=== PATIENT | male | born 1935 | race African-American/Black ===

== ENCOUNTER → 2016-04-10 | Outpatient (CLI) | payer MEDICARE, OTHER ==
[2016-03-20 10:15] VITALS: BP 127/75
[~2016-04-10] MED LIST: ACET250T2 PO; ACET325T9 PO; ACET500C15 PO; ASPI81TA2 PO; ATOR20TA58 PO; BRIM5DRO3 EACHEYE; BUDE10.2 IH; CHOL200044 PO; CIPR250T PO; DOCU-27 PO; FAMO-63 PO; GADOBUTROL 7.5 MMOL/7.5 ML VIAL IV ONE; Hydrocodone/Acetaminophen PO; LATA2.5D3 EACHEYE; LOSA50TA6 PO; NAPR220C4 PO; PANT40TA3 PO; PROM5SYR2 PO
--- NOTE | 2016-04-10 11:35 | RAD ---
PROCEDURE MRI brain without and with contrast HISTORY Lung and liver cancer, metastases evaluation TECHNIQUE Sagittal and axial T1, axial T2, axial FLAIR, axial diffusion, axial gradient echo T2, and post-contrast axial and coronal T1 weighted images were acquired of the brain. Contrast: 7.5 cc Gadavist COMPARISON June 28, 2014 FINDINGS There is no evidence of recent infarct. Ventricular size is stable. There is mild generalized supratentorial involutional change. There is no new intra-axial mass effect, midline shift, extra-axial fluid collection. There is again mild T2 and FLAIR hyperintense signal abnormality of the supratentorial white matter bilaterally. There is no nodular parenchymal or leptomeningeal enhancement. Small somewhat linear focus of enhancement of the left parietal lobe is probably due to small developmental venous anomaly. There is preservation of the major arterial intracranial flow voids at the skull base. There has been lens surgery on the right. There are again round foci of signal abnormality of the sphenoid sinus bilaterally, may be due to complex or mucous retention cysts or polyps. There is patchy very minimal ethmoid air cell mucosal thickening. There is also small complex mucous retention cyst of the posterior left maxillary sinus. Mastoid air cells are aerated. Cerebellar tonsils are normal in location. There is preserved marrow signal of the clivus. There is no new abnormality of the small pituitary gland. IMPRESSION 1. There is no abnormal intracranial enhancement. 2. Minimal T2 and FLAIR hyperintense signal abnormality of the supratentorial white matter is similar, most likely due to chronic microvascular ischemic disease in patient this age. Electronically signed by: Indio Loza MD (Apr 10, 2016 11:32:39)
== END | disposition home or self-care (01) ==
LOC: MRI 10:30
PROVIDERS: ATTEND Internal Medicine Hematology & Oncology
DX: C34.92 Malignant neoplasm of unspecified part of left bronchus or lung (principal)
CPT/HCPCS: 70553; A9585

== ENCOUNTER → 2016-07-09 | Outpatient (CLI) | payer MEDICARE, OTHER ==
[2016-03-20 10:15] VITALS: BP 127/75
[~2016-07-09] MED LIST changes: -GADOBUTROL 7.5 MMOL/7.5 ML VIAL IV ONE; +IOHEXOL 240 MG/ML 50ML VIAL. PO ONE
--- NOTE | 2016-07-09 14:59 | RAD ---
CT of the chest without contrast, 07/09/2016: History: Lung cancer Noncontrast scans were obtained as requested and compared to a study from 03/13/2016. An irregular parenchymal lesion in the posterior aspect of the left lower lobe seen on the previous study has markedly regressed. There are only now mild streaky parenchymal opacities in this region. No new pulmonary mass or infiltrate is seen. There is no evidence of pleural fluid. There is calcific plaquing of the thoracic aorta without evidence of aneurysm. Several coronary artery calcifications are again noted. No mediastinal adenopathy is seen. A small amount of pericardial fluid is again noted anteriorly. There are moderate scattered degenerative changes in the spine. IMPRESSION: 1. Regression of the left lobe pulmonary mass compatible with a favorable response to therapy. 2. No new chest abnormality is detected. CT of the abdomen and pelvis without contrast, 07/09/2016: Multidetector CT imaging was performed following oral ingestion of contrast. No IV contrast was administered for this study. Comparison is made to a study from 04/21/2006. There is a tiny low-density lesion in the posterolateral aspect of the right lobe of the liver inferiorly. This is unchanged since the previous study suggesting a benign lesion such as a cyst. The unopacified liver is otherwise unremarkable. The possible right lobe lesion described on the PET study from 03/14/2016 is not visualized on these noncontrast CT scans. No gallbladder abnormality is seen. The pancreas is unremarkable. The spleen is of normal size. The unopacified kidneys show no evidence of obstruction. No adrenal abnormality is detected. Aortoiliac calcific plaquing is present without evidence of aneurysm. The prostate gland is surgically absent. There is a cystic structure in the deep pelvis on the right along the lateral aspect of what is probably either a bladder remnant or surgically reconstructed neobladder. There is a given history of bladder cancer. This configuration is unchanged. There are no findings suggest suggest tumor recurrence in the pelvis. The oral contrast material has not reached the colon. There is mild dilatation of several small bowel loops anteriorly in the upper abdomen. A similar appearance was present on the previous study. No free fluid or free air is evident in the abdomen or pelvis. Moderate multilevel degenerative changes are present in the lumbar spine. IMPRESSION: 1. Abnormal bladder anatomy as also noted on the study from 04/21/2006, probably representing a surgically reconstructed neobladder in this patient with a history of bladder cancer. 2. Unchanged small hepatic cyst. 3. No CT evidence of metastatic disease in the abdomen or pelvis. PQRS Compliance Statement: One or more of the following individualized dose reduction techniques were utilized for this examination: 1. Automated exposure control 2. Adjustment of the mA and/or kV according to patient size 3. Use of iterative reconstruction technique
== END | disposition home or self-care (01) ==
LOC: CT 09:22
PROVIDERS: ATTEND Internal Medicine Hematology & Oncology
DX: C34.92 Malignant neoplasm of unspecified part of left bronchus or lung (principal); R53.83 Other fatigue
CPT/HCPCS: 71250; 74176; Q9966

== ENCOUNTER → 2016-09-30 | Outpatient (CLI) | payer MEDICARE, OTHER ==
[2016-03-20 10:15] VITALS: BP 127/75
[~2016-09-30] MED LIST changes: +ASPI-630 PO; -ASPI81TA2 PO; +CONTRAST GIVEN MC PRN; +DOCU-109 PO; -DOCU-27 PO
--- NOTE | 2016-09-30 17:17 | RAD ---
CT chest, abdomen and pelvis without contrast 09/30/2016 at 1416 hours Indication: Adenocarcinoma. Lung cancer and history of bladder cancer. Comparison: CT chest/abdomen/pelvis 07/09/2016 Technique: Multiple axial CT images of the chest, abdomen and pelvis were acquired without intravenous contrast. Oral contrast was administered. Coronal and sagittal reformats are provided. Findings: Chest: Thyroid gland is normal. Evaluation is limited by lack of intravenous contrast. There are no enlarged lymph nodes in the axillary, mediastinal or hilar regions. Heart size is within normal limits. Thoracic aorta is normal in course and caliber with scattered atherosclerotic calcification. No pericardial or pleural effusions are present. Focal interstitial thickening and nodularity in the superior segment left lower lobe with area of cavitation appears similar to 07/09/2016. No new or enlarging pulmonary nodules are identified. No pneumothorax. Abdomen/pelvis: Evaluation of the solid abdominal viscera is limited by lack of intravenous contrast. There is a 9 mm hypoattenuating lesion in the inferior right hepatic lobe which is stable from 07/09/2016. Comment right adrenal gland, and gallbladder are within normal limits. Pancreas is normal in appearance. Mild nodularity of the left medial limb adrenal gland, stable. No contour deforming renal mass is identified. No renal calculi. No hydronephrosis. Abdominal aorta is normal in course and caliber with scattered atherosclerotic calcification. There are no enlarged abdominal or pelvic lymph nodes. There are dilated loops of small bowel containing oral contrast. Oral contrast extends distally to an area of caliber narrowing with a fecal stasis identified in the right lower quadrant (series 3, image 54). Small bowel loops measure up to 4.8 cm. The neobladder appears distended. Right-sided ileal conduit is prominent, similar to the prior examination. A bowel anastomosis is identified in the left central pelvis, the prior examination. There is no free intraperitoneal air. No free fluid within the abdomen or pelvis. There is disc space narrowing with endplate sclerosis at L2-L3, L3-L4 and L5-S1. There is [id number] spinal canal stenosis at L2-L3 and L3-L4. No suspicious osseous lesions are identified. Impression: 1. Left lower lobe parenchymal lesion appears similar to the prior examination from 07/09/2016. No new or enlarging pulmonary nodules are identified. 2. There is prominence of the small bowel measuring up to 4.8 cm with smooth tapering. However, there is some fecal stasis at this level and the right lower pelvis and correlation with any signs or symptoms of early small bowel obstruction is recommended, especially given the history of prior bowel surgery. 3. There is surgical reconstruction the urinary bladder which is distended. No evidence for bladder wall thickening. No evidence for metastasis involving the abdomen or pelvis. PQRS Compliance Statement: One or more of the following individualized dose reduction techniques were utilized for this examination: 1. Automated exposure control 2. Adjustment of the mA and/or kV according to patient size 3. Use of iterative reconstruction technique
== END | disposition home or self-care (01) ==
LOC: CT 12:55
PROVIDERS: ATTEND Internal Medicine Hematology & Oncology
DX: C34.92 Malignant neoplasm of unspecified part of left bronchus or lung (principal)
CPT/HCPCS: 71250; 74176; Q9966

== ENCOUNTER 2016-12-16 11:06 | Inpatient (IN) | payer MEDICARE, OTHER ==
[~2016-12-16] VITALS: Ht 180.3 cm; Wt 74.8 kg
[~2016-12-16 11:06] MED LIST changes: -CONTRAST GIVEN MC PRN; -IOHEXOL 240 MG/ML 50ML VIAL. PO ONE
[2016-12-16] MEDS ORDERED: CALC200T3 PO (12:00)
[2016-12-16] MEDS ORDERED: IBUP-1060 PO (12:00)
[2016-12-16] MEDS ORDERED: MAGIC MOUTHWASH (12:00)
[2016-12-16] MEDS ORDERED: COD1CAPS2 PO (12:00)
[2016-12-16] MEDS ORDERED: WHEA1POW8 PO (12:00)
[2016-12-16] MEDS ORDERED: CHOL10003 PO (12:00)
[2016-12-16] MEDS ORDERED: SODI100G DT (12:00)
[2016-12-16] MEDS ORDERED: CLOT15CR3 TP (12:00)
--- NOTE | 2016-12-16 12:13 | EKG ---
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
[2016-12-16 12:25] LABS: BASO % 1 % (0-3); EOS % 3 % (0-3); HEMATOCRIT 38.9 % (39.0-53.0); LYMPH # 1.1 x10^3/uL (1.0-4.8); LYMPH % 19 % (24-48); MEAN CORPUSCULAR HEMOGLOBIN 30 pg (25-35); MEAN CORPUSCULAR HGB CONC 33 g/dL (31-37); MEAN CORPUSCULAR VOLUME 91 fL (79-100); MONO % 12 % (0-9); NEUT % 66 % (31-73); PLATELET COUNT 164 x10^3/uL (140-400); RED BLOOD COUNT 4.26 x10^6/uL (4.30-5.70); RED CELL DISTRIBUTION WIDTH 13.5 % (11.5-14.5); WHITE BLOOD COUNT 5.9 x10^3/uL (4.0-11.0)
[2016-12-16 12:32] LABS: CALCIUM 9.2 mg/dL (8.5-10.1); CREATININE 1.2 mg/dL (0.7-1.3); POTASSIUM 4.1 mmol/L (3.5-5.1)
[2016-12-16 12:38] LABS: ALBUMIN 3.6 g/dL (3.4-5.0); ALBUMIN/GLOBULIN RATIO 1.1 (1.0-1.7); TOTAL BILIRUBIN 1.4 mg/dL (0.2-1.0)
[2016-12-16] MEDS ORDERED: ASPIRIN CHEWABLE 81 MG TABLET. PO ONE (13:00)
[2016-12-16] MEDS ORDERED: NITROGLYCERIN SUBLINGUAL 0.4 MG BOTTLE OF 25. SL PRN (13:00)
--- NOTE | 2016-12-16 13:06 | RAD ---
EXAM: Chest one view. HISTORY: Chest pain, cancer undergoing chemotherapy. COMPARISON: 09/30/2016, 03/12/2016. FINDINGS: A frontal view of the chest is obtained. Gas densities under the right hemidiaphragm are most likely interposed bowel loops. There are no confluent infiltrates. There is no pneumothorax or pleural effusion. The heart is not enlarged. There are atherosclerotic calcifications of the aorta. Instrumented anterior cervical discectomy and fusion changes are noted. IMPRESSION: 1. No confluent infiltrates. 2. Gas densities under the right hemidiaphragm are likely secondary to interposed bowel loops present pneumoperitoneum.
--- NOTE | 2016-12-16 14:11 | PHYS DOC ---
Past Medical History Past Medical History: CAD, Cancer, COPD, GERD, High Cholesterol, Hypertension Additional Past Medical Histor: cervical pain, bladder CA. Past Surgical History: Cervical Fusion Additional Past Surgical Histo: bladder surgery due to CA. Alcohol Use: None Drug Use: None Adult General Chief Complaint Chief Complaint: CHEST PAIN HPI HPI Patient is a 81 year old female with history of CAD and remote history of stent placed who presents with intermittent left-sided chest pain that yesterday. Chest pains nonexertional occurs at rest. Last from several minutes to 2-3 hours. I does mild and located over left breast. It is nonradiating. It is not associated with nausea shortness of breath or sweats. Patient currently reports mild chest pain. Patient took baby aspirin prior to ED arrival. Patient is not currently on nitroglycerin. Denies history of congestive heart failure. No fever chills, nausea vomiting or sweats.Denies cough sore throat, palpitations. No other acute symptom or plans. Patient's accompanied at bedside by spouse.. Review of Systems Review of Systems Review symptoms as per history of present illness. All other review symptoms are negative. Current Medications Current Medications Current Medications Medications (Trade) Dose Ordered Sig/Norma Start Time Stop Time Status Last Admin Dose Admin Aspirin (Children'S Aspirin) 324 mg 1X ONCE 12/16/16 13:00 12/16/16 13:01 DC 12/16/16 12:58 324 MG Nitroglycerin (Nitrostat) 0.4 mg PRN Q5MIN PRN 12/16/16 13:00 12/16/16 12:59 0.4 MG Allergies Allergies Allergies Coded Allergies Type Severity Reaction Last Updated Verified Sulfa (Sulfonamide Antibiotics) Allergy Intermediate 06/29/14 Yes doxycycline Allergy Intermediate 03/20/16 Yes Physical Exam Physical Exam Constitutional: Well developed, well nourished, no acute distress, non-toxic appearance. [] HENT: Normocephalic, atraumatic, bilateral external ears normal, oropharynx moist, no oral exudates, nose normal. [] Eyes: PERRLA, EOMI, conjunctiva normal, no discharge. [] Neck: Normal range of motion, no tenderness, supple, no stridor. [] Cardiovascular:Heart rate regular rhythm, no murmur , negative Homans sign[] Lungs & Thorax: Bilateral breath sounds clear to auscultation [] Abdomen: Bowel sounds normal, soft, no tenderness, no masses, no pulsatile masses. [] Skin: Warm, dry, no erythema, no rash. [] Back: No tenderness, no CVA tenderness. [] Extremities: No tenderness, no cyanosis, no clubbing, ROM intact, no edema. [] Neurologic: Alert and oriented X 3, normal motor function, normal sensory function, no focal deficits noted. [] Psychologic: Affect normal, judgement normal, mood normal. [] Current Patient Data Vital Signs Vital Signs Date Time Temp Pulse Resp B/P (MAP) Pulse Ox O2 Delivery O2 Flow Rate FiO2 12/16/16 13:44 67 20 122/68 (86) 97 Room Air 12/16/16 11:16 97.9 97.9 Lab Values Laboratory Tests Test 12/16/16 11:25 White Blood Count 5.9 x10^3/uL (4.0-11.0) Red Blood Count 4.26 x10^6/uL (4.30-5.70) L Hemoglobin 13.0 g/dL (13.0-17.5) Hematocrit 38.9 % (39.0-53.0) L Mean Corpuscular Volume 91 fL (79-100) Mean Corpuscular Hemoglobin 30 pg (25-35) Mean Corpuscular Hemoglobin Concent 33 g/dL (31-37) Red Cell Distribution Width 13.5 % (11.5-14.5) Platelet Count 164 x10^3/uL (140-400) Neutrophils (%) (Auto) 66 % (31-73) Lymphocytes (%) (Auto) 19 % (24-48) L Monocytes (%) (Auto) 12 % (0-9) H Eosinophils (%) (Auto) 3 % (0-3) Basophils (%) (Auto) 1 % (0-3) Neutrophils # (Auto) 3.9 x10^3uL (1.8-7.7) Lymphocytes # (Auto) 1.1 x10^3/uL (1.0-4.8) Monocytes # (Auto) 0.7 x10^3/uL (0.0-1.1) Eosinophils # (Auto) 0.2 x10^3/uL (0.0-0.7) Basophils # (Auto) 0.0 x10^3/uL (0.0-0.2) Sodium Level 144 mmol/L (136-145) Potassium Level 4.1 mmol/L (3.5-5.1) Chloride Level 107 mmol/L (98-107) Carbon Dioxide Level 31 mmol/L (21-32) Anion Gap 6 (6-14) Blood Urea Nitrogen 17 mg/dL (8-26) Creatinine 1.2 mg/dL (0.7-1.3) Estimated GFR (Cockcroft-Gault) 70.0 BUN/Creatinine Ratio 14 (6-20) Glucose Level 101 mg/dL (70-99) H Calcium Level 9.2 mg/dL (8.5-10.1) Total Bilirubin 1.4 mg/dL (0.2-1.0) H Aspartate Amino Transferase (AST) 25 U/L (15-37) Alanine Aminotransferase (ALT) 31 U/L (16-63) Alkaline Phosphatase 62 U/L (46-116) Troponin I Quantitative < 0.017 ng/mL (0.000-0.055) Total Protein 7.0 g/dL (6.4-8.2) Albumin 3.6 g/dL (3.4-5.0) Albumin/Globulin Ratio 1.1 (1.0-1.7) Laboratory Tests 12/16/16 11:25 Laboratory Tests 12/16/16 11:25 EKG EKG [EKG: Sinus rhythm, rate 70, no acute ST-T wave changes, QTC 393.] Radiology/Procedures Radiology/Procedures [Chest x-ray: No acute cardiac or pulmonary disease with fluid noted under right hemidiaphragm.] Course & Med Decision Making Course & Med Decision Making Pertinent Labs and Imaging studies reviewed. (See chart for details) [Patient given aspirin and nitroglycerin with release of symptoms. EKG, troponin are unremarkable. Will admit to the hospital was for cardiac workup. Patient resting comfortably and pain free in the ED.] Dragon Disclaimer Dragon Disclaimer This electronic medical record was generated, in whole or in part, using a voice recognition dictation system. Departure Departure Disposition: ADMITTED INPATIENT Admitting Physician: Other (Dr. Lemus) Condition: STABLE Referrals: LIZBETH BOWLES MD (PCP) HUGH VALDOVINOS DO Dec 16, 2016 14:10
[2016-12-16] MEDS ORDERED: ONDANSETRON PF 4 MG/2 ML VIAL. IV PRN (15:45)
[2016-12-16 16:00] VITALS: BP 138/73
[2016-12-16] MEDS: IPRATRPIUM/ALBUTEROL 0.5/2.5MG 3 ML NEBU. NEB SCH ×2 (16:44→20:37)
[2016-12-16] MEDS ORDERED: ACETAMINOPHEN 325 MG TABLET. PO PRN (18:00)
[2016-12-16] MEDS ORDERED: NAPROXEN 250 MG TABLET PO PRN (18:15)
--- NOTE | 2016-12-16 18:35 | HP ---
ADMIT DATE: 12/16/2016 CHIEF COMPLAINT: Chest pain. HISTORY OF PRESENT ILLNESS: The patient is an 81-year-old -[place] gentleman with CAD, distant stent placement as well as stage IV lung cancer (spread to liver), who presented to the Emergency Room with a 1-week history of left-sided chest pain. He relates that this is off and on without any inciting or alleviating factors. Feels like chest pressure with difficulty breathing and lasting from a few minutes to occasionally a couple of hours. He complains of left shoulder pain and back pain as well as numbness in his right forearm as well. Latter pain complaints, however, appear to be unrelated to the chest pain. He denies any shortness of breath or diaphoresis and nausea. In the Emergency Room, initial labs were negative and he is now admitted for further workup of heart disease. PAST MEDICAL HISTORY: CAD status post stent placement, lung cancer with spread to the liver, currently on Keytruda; COPD; GERD; high cholesterol; hypertension and history of bladder cancer status post resection and also status post cervical fusion. FAMILY HISTORY: Positive for CAD. SOCIAL HISTORY: Lives with . No ongoing toxic habits. ALLERGIES: SULFA and DOXY. MEDICATIONS: MAR reconciled with home meds. REVIEW OF SYSTEMS: Positive as per HPI. Rest of organ system review is negative. PHYSICAL EXAMINATION: VITAL SIGNS: From today show a blood pressure of 138/73, heart rate of 70, respiratory rate at 18 and he is afebrile. GENERAL: This is an 81-year-old well-nourished, well-developed -[place] gentleman, alert and oriented, no acute distress, very pleasant. HEENT: Shows no scleral icterus. NECK: Supple, without any palpable lymphadenopathy. LUNGS: Clear. HEART: Regular rate and rhythm. ABDOMEN: Has positive bowel sounds. Soft and nontender. EXTREMITIES: Show no edema. SKIN: Warm, soft and dry without any rash. LABORATORY DATA: CBC with a WBC of 5.9, hemoglobin 13 and platelets of 164. Chemistries with a BUN and creatinine of 17 and 1.2, normal electrolytes. Total bilirubin at 1.4 and other LFTs within normal. 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 RADIOLOGICAL DATA: Chest x-ray obtained in the Emergency Room shows no confluent infiltrates. ASSESSMENT AND PLAN: The patient is an 81-year-old gentleman with history of coronary artery disease as well as lung cancer, currently under treatment with good response; who presents with 1 week history of recurrent left-sided chest pain. We will rule out for acute coronary syndrome with serial enzymes and EKGs. Cardiology will be consulted, although some characteristics are typical, suspicion is that this is noncardiac. We will start on H2 sapna for potential gastroesophageal reflux disease. We will continue all his home medications as well. His oncologist, Dr. Botello will be notified of the admission as well. AMERICA MANCUSO MD DR: UR/nts JOB#: [id number] / [id number] CHELSY
[2016-12-16 19:32] VITALS: BP 160/80
[2016-12-16] MEDS ORDERED: BUDESONIDE 0.5 MG/2 ML NEBU. NEB SCH (20:00)
[2016-12-16] MEDS: LATANOPROST 0.005% OPHTH SOLUTION 2.5ML BOTTLE. OU SCH (20:28)
[2016-12-16] MEDS: BRIMONIDINE 0.2% OPHTH SOLUTION 5ML BOTTLE. OU SCH (20:28)
[2016-12-16] MEDS: CALCIUM CARBONATE 500 MG TAB.CHEW PO SCH (20:38)
[2016-12-16 22:54] VITALS: BP 124/73
[2016-12-17 03:28] VITALS: BP 137/72
[2016-12-17 05:16] LABS: BASO % 0 % (0-3); EOS % 1 % (0-3); HEMATOCRIT 37.1 % (39.0-53.0); HEMOGLOBIN 12.9 g/dL (13.0-17.5); LYMPH # 0.9 x10^3/uL (1.0-4.8); LYMPH % 12 % (24-48); MEAN CORPUSCULAR HEMOGLOBIN 31 pg (25-35); MEAN CORPUSCULAR HGB CONC 35 g/dL (31-37); MEAN CORPUSCULAR VOLUME 89 fL (79-100); MONO % 10 % (0-9); NEUT % 77 % (31-73); PLATELET COUNT 164 x10^3/uL (140-400); RED BLOOD COUNT 4.17 x10^6/uL (4.30-5.70); RED CELL DISTRIBUTION WIDTH 13.7 % (11.5-14.5); WHITE BLOOD COUNT 8.1 x10^3/uL (4.0-11.0)
[2016-12-17 05:37] LABS: ALBUMIN 3.5 g/dL (3.4-5.0); ALBUMIN/GLOBULIN RATIO 1.3 (1.0-1.7); CALCIUM 8.5 mg/dL (8.5-10.1); CREATININE 1.2 mg/dL (0.7-1.3); POTASSIUM 3.9 mmol/L (3.5-5.1); TOTAL BILIRUBIN 1.4 mg/dL (0.2-1.0); TOTAL PROTEIN 6.3 g/dL (6.4-8.2)
[2016-12-17 07:05] VITALS: BP 123/74
[2016-12-17] MEDS: BRIMONIDINE 0.2% OPHTH SOLUTION 5ML BOTTLE. OU SCH ×2 (08:40→20:15)
[2016-12-17] MEDS: ASPIRIN CHEWABLE 81 MG TABLET. PO SCH (08:40)
[2016-12-17] MEDS: LOSARTAN POTASSIUM 50 MG TABLET. PO SCH (08:41)
[2016-12-17] MEDS: CALCIUM CARBONATE 500 MG TAB.CHEW PO SCH ×2 (08:43→20:16)
[2016-12-17] MEDS ORDERED: NON FORMULARY ITEM (Budesonide/Formoterol Fumarate (Symbicort 160-4.5 Mcg Inhaler) 10.2 GM IH SCH (09:00)
[2016-12-17] MEDS: SYMBICORT 160/4.5 INH SCH ×2 (10:00→20:15)
[2016-12-17 10:28] VITALS: BP 120/60
--- NOTE | 2016-12-17 11:18 | PDOC ---
PROGRESS NOTES Chief Complaint Chief Complaint chest pain, w/ Hx coronary artery disease lung cancer, w. chest pain weakness neck pain GERD History of Present Illness History of Present Illness have r/o ACS consult Onc and CV Vitals Vitals Vital Signs Date Time Temp Pulse Resp B/P (MAP) Pulse Ox O2 Delivery O2 Flow Rate FiO2 12/17/16 10:28 97.5 72 18 120/60 (80) 96 Room Air 97.5 Physical Exam General: Alert, Oriented X3, Cooperative, No acute distress Heart: Regular rate, No murmurs Lungs: Clear Abdomen: Normal bowel sounds, Soft Extremities: No cyanosis Skin: No rashes, No breakdown Labs LABS Laboratory Tests Test 12/16/16 11:25 12/16/16 21:30 12/17/16 03:50 White Blood Count 5.9 x10^3/uL (4.0-11.0) 8.1 x10^3/uL (4.0-11.0) Red Blood Count 4.26 x10^6/uL (4.30-5.70) 4.17 x10^6/uL (4.30-5.70) Hemoglobin 13.0 g/dL (13.0-17.5) 12.9 g/dL (13.0-17.5) Hematocrit 38.9 % (39.0-53.0) 37.1 % (39.0-53.0) Mean Corpuscular Volume 91 fL (79-100) 89 fL (79-100) Mean Corpuscular Hemoglobin 30 pg (25-35) 31 pg (25-35) Mean Corpuscular Hemoglobin Concent 33 g/dL (31-37) 35 g/dL (31-37) Red Cell Distribution Width 13.5 % (11.5-14.5) 13.7 % (11.5-14.5) Platelet Count 164 x10^3/uL (140-400) 164 x10^3/uL (140-400) Neutrophils (%) (Auto) 66 % (31-73) 77 % (31-73) Lymphocytes (%) (Auto) 19 % (24-48) 12 % (24-48) Monocytes (%) (Auto) 12 % (0-9) 10 % (0-9) Eosinophils (%) (Auto) 3 % (0-3) 1 % (0-3) Basophils (%) (Auto) 1 % (0-3) 0 % (0-3) Neutrophils # (Auto) 3.9 x10^3uL (1.8-7.7) 6.2 x10^3uL (1.8-7.7) Lymphocytes # (Auto) 1.1 x10^3/uL (1.0-4.8) 0.9 x10^3/uL (1.0-4.8) Monocytes # (Auto) 0.7 x10^3/uL (0.0-1.1) 0.8 x10^3/uL (0.0-1.1) Eosinophils # (Auto) 0.2 x10^3/uL (0.0-0.7) 0.1 x10^3/uL (0.0-0.7) Basophils # (Auto) 0.0 x10^3/uL (0.0-0.2) 0.0 x10^3/uL (0.0-0.2) Sodium Level 144 mmol/L (136-145) 144 mmol/L (136-145) Potassium Level 4.1 mmol/L (3.5-5.1) 3.9 mmol/L (3.5-5.1) Chloride Level 107 mmol/L (98-107) 107 mmol/L (98-107) Carbon Dioxide Level 31 mmol/L (21-32) 27 mmol/L (21-32) Anion Gap 6 (6-14) 10 (6-14) Blood Urea Nitrogen 17 mg/dL (8-26) 19 mg/dL (8-26) Creatinine 1.2 mg/dL (0.7-1.3) 1.2 mg/dL (0.7-1.3) Estimated GFR (Cockcroft-Gault) 70.0 70.0 BUN/Creatinine Ratio 14 (6-20) 16 (6-20) Glucose Level 101 mg/dL (70-99) 101 mg/dL (70-99) Calcium Level 9.2 mg/dL (8.5-10.1) 8.5 mg/dL (8.5-10.1) Total Bilirubin 1.4 mg/dL (0.2-1.0) 1.4 mg/dL (0.2-1.0) Aspartate Amino Transf (AST/SGOT) 25 U/L (15-37) 24 U/L (15-37) Alanine Aminotransferase (ALT/SGPT) 31 U/L (16-63) 32 U/L (16-63) Alkaline Phosphatase 62 U/L (46-116) 63 U/L (46-116) Troponin I Quantitative < 0.017 ng/mL (0.000-0.055) < 0.017 ng/mL (0.000-0.055) < 0.017 ng/mL (0.000-0.055) VB-Ufc-E-Type Natriuretic Peptide 67 pg/mL (0-449) Total Protein 7.0 g/dL (6.4-8.2) 6.3 g/dL (6.4-8.2) Albumin 3.6 g/dL (3.4-5.0) 3.5 g/dL (3.4-5.0) Albumin/Globulin Ratio 1.1 (1.0-1.7) 1.3 (1.0-1.7) Review of Systems Review of Systems neck pain, shoulder pain Comment Review of Relevant I have reviewed the following items joshua (where applicable) has been applied. Labs Laboratory Tests Test 12/16/16 11:25 12/16/16 21:30 12/17/16 03:50 White Blood Count 5.9 x10^3/uL (4.0-11.0) 8.1 x10^3/uL (4.0-11.0) Red Blood Count 4.26 x10^6/uL (4.30-5.70) 4.17 x10^6/uL (4.30-5.70) Hemoglobin 13.0 g/dL (13.0-17.5) 12.9 g/dL (13.0-17.5) Hematocrit 38.9 % (39.0-53.0) 37.1 % (39.0-53.0) Mean Corpuscular Volume 91 fL (79-100) 89 fL (79-100) Mean Corpuscular Hemoglobin 30 pg (25-35) 31 pg (25-35) Mean Corpuscular Hemoglobin Concent 33 g/dL (31-37) 35 g/dL (31-37) Red Cell Distribution Width 13.5 % (11.5-14.5) 13.7 % (11.5-14.5) Platelet Count 164 x10^3/uL (140-400) 164 x10^3/uL (140-400) Neutrophils (%) (Auto) 66 % (31-73) 77 % (31-73) Lymphocytes (%) (Auto) 19 % (24-48) 12 % (24-48) Monocytes (%) (Auto) 12 % (0-9) 10 % (0-9) Eosinophils (%) (Auto) 3 % (0-3) 1 % (0-3) Basophils (%) (Auto) 1 % (0-3) 0 % (0-3) Neutrophils # (Auto) 3.9 x10^3uL (1.8-7.7) 6.2 x10^3uL (1.8-7.7) Lymphocytes # (Auto) 1.1 x10^3/uL (1.0-4.8) 0.9 x10^3/uL (1.0-4.8) Monocytes # (Auto) 0.7 x10^3/uL (0.0-1.1) 0.8 x10^3/uL (0.0-1.1) Eosinophils # (Auto) 0.2 x10^3/uL (0.0-0.7) 0.1 x10^3/uL (0.0-0.7) Basophils # (Auto) 0.0 x10^3/uL (0.0-0.2) 0.0 x10^3/uL (0.0-0.2) Sodium Level 144 mmol/L (136-145) 144 mmol/L (136-145) Potassium Level 4.1 mmol/L (3.5-5.1) 3.9 mmol/L (3.5-5.1) Chloride Level 107 mmol/L (98-107) 107 mmol/L (98-107) Carbon Dioxide Level 31 mmol/L (21-32) 27 mmol/L (21-32) Anion Gap 6 (6-14) 10 (6-14) Blood Urea Nitrogen 17 mg/dL (8-26) 19 mg/dL (8-26) Creatinine 1.2 mg/dL (0.7-1.3) 1.2 mg/dL (0.7-1.3) Estimated GFR (Cockcroft-Gault) 70.0 70.0 BUN/Creatinine Ratio 14 (6-20) 16 (6-20) Glucose Level 101 mg/dL (70-99) 101 mg/dL (70-99) Calcium Level 9.2 mg/dL (8.5-10.1) 8.5 mg/dL (8.5-10.1) Total Bilirubin 1.4 mg/dL (0.2-1.0) 1.4 mg/dL (0.2-1.0) Aspartate Amino Transf (AST/SGOT) 25 U/L (15-37) 24 U/L (15-37) Alanine Aminotransferase (ALT/SGPT) 31 U/L (16-63) 32 U/L (16-63) Alkaline Phosphatase 62 U/L (46-116) 63 U/L (46-116) Troponin I Quantitative < 0.017 ng/mL (0.000-0.055) < 0.017 ng/mL (0.000-0.055) < 0.017 ng/mL (0.000-0.055) JZ-Lde-L-Type Natriuretic Peptide 67 pg/mL (0-449) Total Protein 7.0 g/dL (6.4-8.2) 6.3 g/dL (6.4-8.2) Albumin 3.6 g/dL (3.4-5.0) 3.5 g/dL (3.4-5.0) Albumin/Globulin Ratio 1.1 (1.0-1.7) 1.3 (1.0-1.7) Laboratory Tests Test 12/16/16 11:25 12/16/16 21:30 12/17/16 03:50 White Blood Count 5.9 x10^3/uL (4.0-11.0) 8.1 x10^3/uL (4.0-11.0) Red Blood Count 4.26 x10^6/uL (4.30-5.70) 4.17 x10^6/uL (4.30-5.70) Hemoglobin 13.0 g/dL (13.0-17.5) 12.9 g/dL (13.0-17.5) Hematocrit 38.9 % (39.0-53.0) 37.1 % (39.0-53.0) Mean Corpuscular Volume 91 fL (79-100) 89 fL (79-100) Mean Corpuscular Hemoglobin 30 pg (25-35) 31 pg (25-35) Mean Corpuscular Hemoglobin Concent 33 g/dL (31-37) 35 g/dL (31-37) Red Cell Distribution Width 13.5 % (11.5-14.5) 13.7 % (11.5-14.5) Platelet Count 164 x10^3/uL (140-400) 164 x10^3/uL (140-400) Neutrophils (%) (Auto) 66 % (31-73) 77 % (31-73) Lymphocytes (%) (Auto) 19 % (24-48) 12 % (24-48) Monocytes (%) (Auto) 12 % (0-9) 10 % (0-9) Eosinophils (%) (Auto) 3 % (0-3) 1 % (0-3) Basophils (%) (Auto) 1 % (0-3) 0 % (0-3) Neutrophils # (Auto) 3.9 x10^3uL (1.8-7.7) 6.2 x10^3uL (1.8-7.7) Lymphocytes # (Auto) 1.1 x10^3/uL (1.0-4.8) 0.9 x10^3/uL (1.0-4.8) Monocytes # (Auto) 0.7 x10^3/uL (0.0-1.1) 0.8 x10^3/uL (0.0-1.1) Eosinophils # (Auto) 0.2 x10^3/uL (0.0-0.7) 0.1 x10^3/uL (0.0-0.7) Basophils # (Auto) 0.0 x10^3/uL (0.0-0.2) 0.0 x10^3/uL (0.0-0.2) Sodium Level 144 mmol/L (136-145) 144 mmol/L (136-145) Potassium Level 4.1 mmol/L (3.5-5.1) 3.9 mmol/L (3.5-5.1) Chloride Level 107 mmol/L (98-107) 107 mmol/L (98-107) Carbon Dioxide Level 31 mmol/L (21-32) 27 mmol/L (21-32) Anion Gap 6 (6-14) 10 (6-14) Blood Urea Nitrogen 17 mg/dL (8-26) 19 mg/dL (8-26) Creatinine 1.2 mg/dL (0.7-1.3) 1.2 mg/dL (0.7-1.3) Estimated GFR (Cockcroft-Gault) 70.0 70.0 BUN/Creatinine Ratio 14 (6-20) 16 (6-20) Glucose Level 101 mg/dL (70-99) 101 mg/dL (70-99) Calcium Level 9.2 mg/dL (8.5-10.1) 8.5 mg/dL (8.5-10.1) Total Bilirubin 1.4 mg/dL (0.2-1.0) 1.4 mg/dL (0.2-1.0) Aspartate Amino Transf (AST/SGOT) 25 U/L (15-37) 24 U/L (15-37) Alanine Aminotransferase (ALT/SGPT) 31 U/L (16-63) 32 U/L (16-63) Alkaline Phosphatase 62 U/L (46-116) 63 U/L (46-116) Troponin I Quantitative < 0.017 ng/mL (0.000-0.055) < 0.017 ng/mL (0.000-0.055) < 0.017 ng/mL (0.000-0.055) IA-Rxb-P-Type Natriuretic Peptide 67 pg/mL (0-449) Total Protein 7.0 g/dL (6.4-8.2) 6.3 g/dL (6.4-8.2) Albumin 3.6 g/dL (3.4-5.0) 3.5 g/dL (3.4-5.0) Albumin/Globulin Ratio 1.1 (1.0-1.7) 1.3 (1.0-1.7) Medications Current Medications Aspirin (Children'S Aspirin) 324 mg 1X ONCE PO Last administered on 12/16/16 12:58; Start 12/16/16 at 13:00; Stop 12/16/16 at 13:01; Status DC Nitroglycerin (Nitrostat) 0.4 mg PRN Q5MIN PRN SL CHEST PAIN Last administered on 12/16/16 12:59; Start 12/16/16 at 13:00 Ondansetron HCl (Zofran) 4 mg PRN Q8HRS PRN IV NAUSEA/VOMITING; Start 12/16/16 at 15:45; Stop 12/17/16 at 15:44 Albuterol/ Ipratropium (Duoneb) 3 ml RTQID NEB ; Start 12/16/16 at 16:00; Stop 12/17/16 at 06:52; Status DC Acetaminophen (Tylenol) 650 mg PRN Q4HRS PRN PO PAIN; Start 12/16/16 at 18:00 Aspirin (Children'S Aspirin) 81 mg DAILY PO Last administered on 12/17/16 08: 40; Start 12/17/16 at 09:00 Calcium Carbonate/ Glycine (Tums) 250 mg BID PO ; Start 12/16/16 at 21:00 Vitamin D (Vitamin D3) 1,000 unit DAILY PO ; Start 12/17/16 at 09:00 Latanoprost (Xalatan) 1 drop HS OU Last administered on 12/16/16 20:28; Start 12/16/16 at 21:00 Losartan Potassium (Cozaar) 50 mg DAILY PO Last administered on 12/17/16 08:41 ; Start 12/17/16 at 09:00 Brimonidine Tartrate (Alphagan) 1 drop BID OU Last administered on 12/17/16 08 :40; Start 12/16/16 at 21:00 Non-Formulary Medication 10.2 gm DAILY IH ; Start 12/17/16 at 09:00; Status UNV Naproxen (Naprosyn) 250 mg PRN BID PRN PO PAIN; Start 12/16/16 at 18:15 Budesonide (Pulmicort) 0.5 mg RTBID NEB ; Start 12/16/16 at 20:00; Stop at 06:52; Status DC Non-Formulary Medication 2 ea BID INH Last administered on 9/26/17at 10:00; Start 12/17/16 at 10:00 Active Scripts Active Reported Prevident 5000 (Sodium Fluoride) 100 Ml Gel..ml. 100 Ml DT Ibuprofen 800 Mg Tablet 800 Mg PO PRN Q6HRS PRN [Magic Mouthwash] 10 Ml TID PRN Cod Liver Oil 1 Each Capsule 1 Each PO DAILY Lotrisone Cream (Clotrimazole/Betamethasone Dip) 15 Gm Cream..g. 1 Abel TP BID Vitamin D3 (Cholecalciferol (Vitamin D3)) 1,000 Unit Tablet 1 Tab PO DAILY Tums (Calcium Carbonate) 200 Mg Tab.chew 200 Mg PO Benefiber (Wheat Dextrin) 1 Each Powd.pack 1 Each PO DAILY Aleve (Naproxen Sodium) 220 Mg Capsule 220 Mg PO BID PRN Symbicort 160-4.5 Mcg Inhaler (Budesonide/Formoterol Fumarate) 10.2 Gm Hfa.aer.ad 10.2 Gm IH DAILY Tylenol (Acetaminophen) 325 Mg Tablet 650 Mg PO Q4HRS PRN Aspirin 81 Mg Tab.chew 81 Mg PO DAILY Latanoprost 2.5 Ml Drops 1 Drop EACHEYE HS Losartan Potassium 50 Mg Tablet 50 Mg PO DAILY Alphagan P (Brimonidine Tartrate) 5 Ml Drops 1 Drop EACHEYE BID Vitals/I & O Vital Sign - Last 24 Hours 12/16/16 12/16/16 12/16/16 12/16/16 12:50 12:59 13:20 13:44 Pulse 74 64 70 67 Resp 20 20 20 B/P (MAP) 145/72 (96) 129/69 125/67 (86) 122/68 (86) Pulse Ox 97 95 97 O2 Delivery Room Air Room Air Room Air 12/16/16 12/16/16 12/16/16 12/16/16 14:00 14:48 15:04 16:00 Temp 97.7 97.7 Pulse 68 66 64 70 Resp 20 22 22 18 B/P (MAP) 125/72 (89) 134/73 (93) 137/64 (88) 138/73 (94) Pulse Ox 96 96 96 99 O2 Delivery Room Air Room Air Room Air Room Air 12/16/16 12/16/16 12/16/16 12/16/16 16:00 17:03 19:32 20:00 Temp 97.7 97.5 97.7 97.5 Pulse 70 80 Resp 18 18 B/P (MAP) 138/73 (94) 160/80 (106) Pulse Ox 99 O2 Delivery Room Air Room Air Room Air Room Air 12/16/16 12/17/16 12/17/16 12/17/16 22:54 03:28 07:05 08:00 Temp 97.6 97.9 97.6 97.6 97.9 97.6 Pulse 67 77 84 Resp 18 18 18 B/P (MAP) 124/73 (90) 137/72 (93) 123/74 (90) Pulse Ox 97 96 O2 Delivery Room Air Room Air Room Air Room Air 12/17/16 12/17/16 08:41 10:28 Temp 97.5 97.5 Pulse 84 72 Resp 18 B/P (MAP) 123/74 120/60 (80) Pulse Ox 96 O2 Delivery Room Air FITO HOWARD MD Dec 17, 2016 11:18
--- NOTE | 2016-12-17 11:58 | PDOC2 ---
CARDIAC CONSULT DATE OF CONSULT Date of Consult DATE: 12/17/16 TIME: 11:39 REASON FOR CONSULT Reason for Consult: Chest Pain REFERRING PHYSICIAN Referring Physician: Dr. Shrestha SOURCE Source: Chart review, Patient HISTORY OF PRESENT ILLNESS HISTORY OF PRESENT ILLNESS This is an 81 yo male, with a history of CAD s/p remote PCI/stent placement, who presented with complaints of chest pain. Began 2 days ago. Describes as intermittent tightness. Located in the left chest. No precipitating factors. Non -radiating. Denies any associated dizziness, diaphoresis, palpitations, SOA, or nausea/vomiting. No recent illness/fevers, orthopnea, or LE edema. Does have a history of stage IV lung CA with metastasis to the liver, currently on Keytruda ; followed by Dr. Botello. No recent cardiac workup nor does he routinely follow with circuit walker. Patient had breakfast this morning. PAST MEDICAL HISTORY Cardiovascular: CAD, HTN, Hyperlipidemia Pulmonary: COPD GI: GERD Renal/: Prostate Ca. PAST SURGICAL HISTORY Past Surgical History: Hernia Repair, Other (PCI/stent placement, prostatectomy ) FAMILY HISTORY Family History: Coronary Artery Disease SOCIAL HISTORY Smoke: No ALCOHOL: none Drugs: None Lives: with Family CURRENT MEDICATIONS CURRENT MEDICATIONS Current Medications Medications (Trade) Dose Ordered Sig/Norma Route PRN Reason Start Time Stop Time Status Last Admin Dose Admin Aspirin (Children'S Aspirin) 324 mg 1X ONCE PO 12/16/16 13:00 12/16/16 13:01 DC 12/16/16 12:58 Nitroglycerin (Nitrostat) 0.4 mg PRN Q5MIN PRN SL CHEST PAIN 12/16/16 13:00 12/16/16 12:59 Aspirin (Children'S Aspirin) 81 mg DAILY PO 12/17/16 09:00 12/17/16 08:40 Latanoprost (Xalatan) 1 drop HS OU 12/16/16 21:00 12/16/16 20:28 Losartan Potassium (Cozaar) 50 mg DAILY PO 12/17/16 09:00 12/17/16 08:41 Brimonidine Tartrate (Alphagan) 1 drop BID OU 12/16/16 21:00 12/17/16 08:40 Non-Formulary Medication 2 ea BID INH 12/17/16 10:00 12/17/16 10:00 ALLERGIES ALLERGIES: Coded Allergies: Sulfa (Sulfonamide Antibiotics) (Verified Allergy, Intermediate, 06/29/14) doxycycline (Verified Allergy, Intermediate, 03/20/16) ROS Review of System 14 point ROS conducted with pertinent positives noted above in HPI. PHYSICAL EXAM General: Alert, Oriented X3, Cooperative, No acute distress HEENT: Atraumatic, Mucous membr. moist/pink Heart: Regular rate, Normal S1, Normal S2, No murmurs (2/6 systolic murmur ) Abdomen: Soft, No tenderness Extremities: No cyanosis, No edema, Normal pulses Skin: No breakdown, No significant lesion Neuro: Normal speech, Sensation intact Psych/Mental Status: Mental status NL, Mood NL MUSCULOSKELETAL: Osteoarthritic changes both hands VITALS VITALS Vital Signs Date Time Temp Pulse Resp B/P (MAP) Pulse Ox O2 Delivery O2 Flow Rate FiO2 12/17/16 10:28 97.5 72 18 120/60 (80) 96 Room Air 97.5 LABS Lab: Laboratory Tests Test 12/16/16 21:30 12/17/16 03:50 Troponin I Quantitative < 0.017 ng/mL (0.000-0.055) < 0.017 ng/mL (0.000-0.055) White Blood Count 8.1 x10^3/uL (4.0-11.0) Red Blood Count 4.17 x10^6/uL (4.30-5.70) Hemoglobin 12.9 g/dL (13.0-17.5) Hematocrit 37.1 % (39.0-53.0) Mean Corpuscular Volume 89 fL (79-100) Mean Corpuscular Hemoglobin 31 pg (25-35) Mean Corpuscular Hemoglobin Concent 35 g/dL (31-37) Red Cell Distribution Width 13.7 % (11.5-14.5) Platelet Count 164 x10^3/uL (140-400) Neutrophils (%) (Auto) 77 % (31-73) Lymphocytes (%) (Auto) 12 % (24-48) Monocytes (%) (Auto) 10 % (0-9) Eosinophils (%) (Auto) 1 % (0-3) Basophils (%) (Auto) 0 % (0-3) Neutrophils # (Auto) 6.2 x10^3uL (1.8-7.7) Lymphocytes # (Auto) 0.9 x10^3/uL (1.0-4.8) Monocytes # (Auto) 0.8 x10^3/uL (0.0-1.1) Eosinophils # (Auto) 0.1 x10^3/uL (0.0-0.7) Basophils # (Auto) 0.0 x10^3/uL (0.0-0.2) Sodium Level 144 mmol/L (136-145) Potassium Level 3.9 mmol/L (3.5-5.1) Chloride Level 107 mmol/L (98-107) Carbon Dioxide Level 27 mmol/L (21-32) Anion Gap 10 (6-14) Blood Urea Nitrogen 19 mg/dL (8-26) Creatinine 1.2 mg/dL (0.7-1.3) Estimated GFR (Cockcroft-Gault) 70.0 BUN/Creatinine Ratio 16 (6-20) Glucose Level 101 mg/dL (70-99) Calcium Level 8.5 mg/dL (8.5-10.1) Total Bilirubin 1.4 mg/dL (0.2-1.0) Aspartate Amino Transf (AST/SGOT) 24 U/L (15-37) Alanine Aminotransferase (ALT/SGPT) 32 U/L (16-63) Alkaline Phosphatase 63 U/L (46-116) Total Protein 6.3 g/dL (6.4-8.2) Albumin 3.5 g/dL (3.4-5.0) Albumin/Globulin Ratio 1.3 (1.0-1.7) ECHOCARDIOGRAM ECHOCARDIOGRAM <Conclusion> The left ventricular systolic function is normal and the ejection fraction is within normal range. The Ejection Fraction is 55-60%. There is normal LV segmental wall motion. Doppler and Color Flow revealed mild aortic regurgitation. DATE: 01/12/16 1110 STRESS TEST STRESS TEST Conclusion 1. Regadenoson cardioisotope stress test technically difficult but did not show any obvious evidence of ischemia or infarct. 2. Normal left ventricular systolic function with ejection fraction calculated at 58%. 3. Low risk for cardiac events. DATE: 10/11/15 1313 ASSESSMENT/PLAN ASSESSMENT/PLAN 1. Chest pain, with atypical. Troponin series normal, AMI ruled out. Previous echo (01/2016) with preserved LV function 2. CAD s/p remote PCI/stent placement. appears stable. presently CP free. continue ASA and ARB. Add BB. 3. Hypertension; well-controlled 4. Hyperlipidemia; statin if indicated. 5. Lung CA with metastasis to liver; oncology service has been consulted. Recommendations Check lipids Obtain echo to assess LV function Keep NPO MN. Given cardiac risk factors, will consider for stress test in the am following oncology recommendations. Supportive care. Problems: RACHELE SUAREZ APRN Dec 17, 2016 11:58
[2016-12-17 14:12] VITALS: BP 132/74
[2016-12-17] MEDS ORDERED: CONTRAST GIVEN MC PRN (17:00)
[2016-12-17] MEDS ORDERED: IOHEXOL 300 MG/ML 75 ML VIAL IV ONE (17:00)
[2016-12-17] MEDS: CHOLECALCIFEROL (VITAMIN D3) 1,000 UNIT TABLET PO SCH (17:41)
--- NOTE | 2016-12-17 17:47 | RAD ---
Indication: Chest pain and lung cancer. Technique: Axial images and coronal and sagittal maximum intensity projection reformatted images are provided. 75 mL of intravenous Omnipaque 300 was administered without complication. Comparison CT chest is from September 30, 2016. One or more of the following individualized dose reduction techniques were utilized for this examination: 1. Automated exposure control 2. Adjustment of the mA and/or kV according to patient size 3. Use of iterative reconstruction technique Findings: Contrast bolus is satisfactory. There is no filling defect to suggest pulmonary embolism. There is atheromatous disease in the thoracic aorta. There is mild ectasia of the ascending aorta, measures 3.6 cm in diameter, greater than the main pulmonary artery. The heart is not enlarged. There are coronary artery calcifications. There is a small pericardial effusion. There is no hilar or mediastinal adenopathy. There is questionable mural thickening in the esophagus versus incomplete distention. There is emphysema. There are calcified granulomas. There are areas of linear atelectasis or scarring. Linear opacities in the potential cavitation in the superior segment of the left lower lobe is stable. Slight nodularity at this site is stable. There is minimal dependent atelectasis. There is mild adrenal fullness, greater on the left, similar to prior study. There are minimal degenerative changes in the spine. IMPRESSION: 1. Negative for pulmonary embolus. 2. Emphysema. 3. No increasing nodularity or soft tissue to suggest residual or recurrent tumor. Electronically signed by: Cornelius Leahy MD (12/17/2016 5:43 PM) [facility]
[2016-12-17 19:00] VITALS: BP 153/75
[2016-12-17] MEDS: LATANOPROST 0.005% OPHTH SOLUTION 2.5ML BOTTLE. OU SCH (20:15)
[2016-12-17] MEDS: METOPROLOL TART IMMED RELEASE 25 MG TABLET. PO SCH (20:16)
[2016-12-17 22:32] VITALS: BP 128/65
[2016-12-18 01:46] LABS: CHOLESTEROL/HDL RATIO 2.4
[2016-12-18 02:40] VITALS: BP 134/89
[2016-12-18 07:15] VITALS: BP 128/81
[2016-12-18] MEDS: LOSARTAN POTASSIUM 50 MG TABLET. PO SCH (09:00)
[2016-12-18] MEDS: ASPIRIN CHEWABLE 81 MG TABLET. PO SCH (09:00)
[2016-12-18] MEDS: CHOLECALCIFEROL (VITAMIN D3) 1,000 UNIT TABLET PO SCH (09:00)
[2016-12-18] MEDS: SYMBICORT 160/4.5 INH SCH (09:00)
[2016-12-18] MEDS: CALCIUM CARBONATE 500 MG TAB.CHEW PO SCH (09:00)
[2016-12-18] MEDS: BRIMONIDINE 0.2% OPHTH SOLUTION 5ML BOTTLE. OU SCH (09:00)
[2016-12-18] MEDS: METOPROLOL TART IMMED RELEASE 25 MG TABLET. PO SCH (09:00)
--- NOTE | 2016-12-18 09:56 | PDOC ---
PROGRESS NOTES Subjective Subjective c/c - f/u of Stage 4 lung ca ROS - no dyspnea Objective Objective Vital Signs Date Time Temp Pulse Resp B/P (MAP) Pulse Ox O2 Delivery O2 Flow Rate FiO2 12/18/16 07:15 97.9 66 18 128/81 (97) 96 Room Air 97.9 Physical Exam Heart: Normal S1, Normal S2 General: Alert, Oriented X3 Lungs: Clear to auscultation Neuro: Normal speech Psych/Mental Status: Mental status NL Assessment Assessment Imp/Plan 1. Stage 4 lung ca - CTA on 12/17/16 does not reveal any progression, plan to continue immunotherapy with keytruda as outpatient. 2. CP - CTA neg for PE I d/w Dr Shrestha Comment Review of Relevant I have reviewed the following items joshua (where applicable) has been applied. Labs Laboratory Tests Test 12/16/16 11:25 12/16/16 21:30 12/17/16 03:50 White Blood Count 5.9 x10^3/uL (4.0-11.0) 8.1 x10^3/uL (4.0-11.0) Red Blood Count 4.26 x10^6/uL (4.30-5.70) 4.17 x10^6/uL (4.30-5.70) Hemoglobin 13.0 g/dL (13.0-17.5) 12.9 g/dL (13.0-17.5) Hematocrit 38.9 % (39.0-53.0) 37.1 % (39.0-53.0) Mean Corpuscular Volume 91 fL (79-100) 89 fL (79-100) Mean Corpuscular Hemoglobin 30 pg (25-35) 31 pg (25-35) Mean Corpuscular Hemoglobin Concent 33 g/dL (31-37) 35 g/dL (31-37) Red Cell Distribution Width 13.5 % (11.5-14.5) 13.7 % (11.5-14.5) Platelet Count 164 x10^3/uL (140-400) 164 x10^3/uL (140-400) Neutrophils (%) (Auto) 66 % (31-73) 77 % (31-73) Lymphocytes (%) (Auto) 19 % (24-48) 12 % (24-48) Monocytes (%) (Auto) 12 % (0-9) 10 % (0-9) Eosinophils (%) (Auto) 3 % (0-3) 1 % (0-3) Basophils (%) (Auto) 1 % (0-3) 0 % (0-3) Neutrophils # (Auto) 3.9 x10^3uL (1.8-7.7) 6.2 x10^3uL (1.8-7.7) Lymphocytes # (Auto) 1.1 x10^3/uL (1.0-4.8) 0.9 x10^3/uL (1.0-4.8) Monocytes # (Auto) 0.7 x10^3/uL (0.0-1.1) 0.8 x10^3/uL (0.0-1.1) Eosinophils # (Auto) 0.2 x10^3/uL (0.0-0.7) 0.1 x10^3/uL (0.0-0.7) Basophils # (Auto) 0.0 x10^3/uL (0.0-0.2) 0.0 x10^3/uL (0.0-0.2) Sodium Level 144 mmol/L (136-145) 144 mmol/L (136-145) Potassium Level 4.1 mmol/L (3.5-5.1) 3.9 mmol/L (3.5-5.1) Chloride Level 107 mmol/L (98-107) 107 mmol/L (98-107) Carbon Dioxide Level 31 mmol/L (21-32) 27 mmol/L (21-32) Anion Gap 6 (6-14) 10 (6-14) Blood Urea Nitrogen 17 mg/dL (8-26) 19 mg/dL (8-26) Creatinine 1.2 mg/dL (0.7-1.3) 1.2 mg/dL (0.7-1.3) Estimated GFR (Cockcroft-Gault) 70.0 70.0 BUN/Creatinine Ratio 14 (6-20) 16 (6-20) Glucose Level 101 mg/dL (70-99) 101 mg/dL (70-99) Calcium Level 9.2 mg/dL (8.5-10.1) 8.5 mg/dL (8.5-10.1) Total Bilirubin 1.4 mg/dL (0.2-1.0) 1.4 mg/dL (0.2-1.0) Aspartate Amino Transf (AST/SGOT) 25 U/L (15-37) 24 U/L (15-37) Alanine Aminotransferase (ALT/SGPT) 31 U/L (16-63) 32 U/L (16-63) Alkaline Phosphatase 62 U/L (46-116) 63 U/L (46-116) Troponin I Quantitative < 0.017 ng/mL (0.000-0.055) < 0.017 ng/mL (0.000-0.055) < 0.017 ng/mL (0.000-0.055) BC-Get-W-Type Natriuretic Peptide 67 pg/mL (0-449) Total Protein 7.0 g/dL (6.4-8.2) 6.3 g/dL (6.4-8.2) Albumin 3.6 g/dL (3.4-5.0) 3.5 g/dL (3.4-5.0) Albumin/Globulin Ratio 1.1 (1.0-1.7) 1.3 (1.0-1.7) Triglycerides Level 39 mg/dL (0-150) Cholesterol Level 152 mg/dL (0-200) LDL Cholesterol, Calculated 80 mg/dL (0-100) VLDL Cholesterol, Calculated 8 mg/dL (0-40) Non-HDL Cholesterol Calculated 88 mg/dL (0-129) HDL Cholesterol 64 mg/dL (40-60) Cholesterol/HDL Ratio 2.4 Medications Current Medications Aspirin (Children'S Aspirin) 324 mg 1X ONCE PO Last administered on 12/16/16 12:58; Start 12/16/16 at 13:00; Stop 12/16/16 at 13:01; Status DC Nitroglycerin (Nitrostat) 0.4 mg PRN Q5MIN PRN SL CHEST PAIN Last administered on 12/16/16 12:59; Start 12/16/16 at 13:00 Ondansetron HCl (Zofran) 4 mg PRN Q8HRS PRN IV NAUSEA/VOMITING; Start 12/16/16 at 15:45; Stop 12/17/16 at 15:44; Status DC Albuterol/ Ipratropium (Duoneb) 3 ml RTQID NEB ; Start 12/16/16 at 16:00; Stop 12/17/16 at 06:52; Status DC Acetaminophen (Tylenol) 650 mg PRN Q4HRS PRN PO PAIN Last administered on 20:20; Start 12/16/16 at 18:00 Aspirin (Children'S Aspirin) 81 mg DAILY PO Last administered on 12/17/16 08: 40; Start 12/17/16 at 09:00 Calcium Carbonate/ Glycine (Tums) 250 mg BID PO ; Start 12/16/16 at 21:00 Vitamin D (Vitamin D3) 1,000 unit DAILY PO Last administered on 12/17/16 17:41 ; Start 12/17/16 at 09:00 Latanoprost (Xalatan) 1 drop HS OU Last administered on 12/17/16 20:15; Start 12/16/16 at 21:00 Losartan Potassium (Cozaar) 50 mg DAILY PO Last administered on 12/17/16 08:41 ; Start 12/17/16 at 09:00 Brimonidine Tartrate (Alphagan) 1 drop BID OU Last administered on 12/17/16 20 :15; Start 12/16/16 at 21:00 Non-Formulary Medication 10.2 gm DAILY IH ; Start 12/17/16 at 09:00; Status UNV Naproxen (Naprosyn) 250 mg PRN BID PRN PO PAIN; Start 12/16/16 at 18:15 Budesonide (Pulmicort) 0.5 mg RTBID NEB ; Start 12/16/16 at 20:00; Stop at 06:52; Status DC Non-Formulary Medication 2 ea BID INH Last administered on 12/17/16 20:15; Start 12/17/16 at 10:00 Metoprolol Tartrate (Lopressor) 25 mg BID PO Last administered on 12/17/16 20: 16; Start 12/17/16 at 21:00 Iohexol (Omnipaque 300 Mg/ml) 75 ml 1X ONCE IV Last administered on 12/17/16 17:09; Start 12/17/16 at 17:00; Stop 12/17/16 at 17:01; Status DC Info (Do NOT chart on this entry -- for MONITORING) 1 each PRN DAILY PRN MC SEE COMMENTS; Start 12/17/16 at 17:00; Stop 12/19/16 at 16:59 Active Scripts Active Reported Prevident 5000 (Sodium Fluoride) 100 Ml Gel..ml. 100 Ml DT Ibuprofen 800 Mg Tablet 800 Mg PO PRN Q6HRS PRN [Magic Mouthwash] 10 Ml TID PRN Cod Liver Oil 1 Each Capsule 1 Each PO DAILY Lotrisone Cream (Clotrimazole/Betamethasone Dip) 15 Gm Cream..g. 1 Abel TP BID Vitamin D3 (Cholecalciferol (Vitamin D3)) 1,000 Unit Tablet 1 Tab PO DAILY Tums (Calcium Carbonate) 200 Mg Tab.chew 200 Mg PO Benefiber (Wheat Dextrin) 1 Each Powd.pack 1 Each PO DAILY Aleve (Naproxen Sodium) 220 Mg Capsule 220 Mg PO BID PRN Symbicort 160-4.5 Mcg Inhaler (Budesonide/Formoterol Fumarate) 10.2 Gm Hfa.aer.ad 10.2 Gm IH DAILY Tylenol (Acetaminophen) 325 Mg Tablet 650 Mg PO Q4HRS PRN Aspirin 81 Mg Tab.chew 81 Mg PO DAILY Latanoprost 2.5 Ml Drops 1 Drop EACHEYE HS Losartan Potassium 50 Mg Tablet 50 Mg PO DAILY Alphagan P (Brimonidine Tartrate) 5 Ml Drops 1 Drop EACHEYE BID Vitals/I & O Vital Sign - Last 24 Hours 12/17/16 12/17/16 12/17/16 12/17/16 10:28 14:12 19:00 20:00 Temp 97.5 97.8 97.7 97.5 97.8 97.7 Pulse 72 76 61 Resp 18 17 16 B/P (MAP) 120/60 (80) 132/74 (93) 153/75 (101) Pulse Ox 96 98 95 O2 Delivery Room Air Room Air Room Air Room Air 12/17/16 12/17/16 12/18/16 12/18/16 20:16 22:32 02:40 07:15 Temp 98.1 97.5 97.9 98.1 97.5 97.9 Pulse 61 63 87 66 Resp 16 19 18 B/P (MAP) 153/75 128/65 (86) 134/89 (104) 128/81 (97) Pulse Ox 94 96 96 O2 Delivery Room Air Room Air Room Air CARLEEN SANFORD MD Dec 18, 2016 09:56
[2016-12-18 10:30] VITALS: BP 124/71
[2016-12-18] MEDS ORDERED: REGADENOSON 0.4 MG/5 ML DISP.SYRIN. IV ONE (12:45)
--- NOTE | 2016-12-18 12:52 | PDOC ---
PROGRESS NOTES Chief Complaint Chief Complaint chest pain, w/ Hx coronary artery disease angina, NOS lung cancer, w. chest pain weakness neck pain GERD History of Present Illness History of Present Illness MPI stress today, pt NPO feels OK CT showed improvement of prior tumor Dr. Botello following Vitals Vitals Vital Signs Date Time Temp Pulse Resp B/P (MAP) Pulse Ox O2 Delivery O2 Flow Rate FiO2 12/18/16 10:30 97.8 57 17 124/71 (88) 97 Room Air 97.8 Physical Exam General: Alert, Oriented X3 Heart: Normal S1, Normal S2 Lungs: Clear Abdomen: Soft, No tenderness Extremities: No cyanosis, No edema, Normal pulses Skin: No breakdown, No significant lesion Review of Systems Review of Systems left upper neck and chest pain is improved, Assessment and Plan Assessmemt and Plan MPI stress Problems: Comment Review of Relevant I have reviewed the following items joshua (where applicable) has been applied. Labs Laboratory Tests Test 12/16/16 21:30 12/17/16 03:50 Troponin I Quantitative < 0.017 ng/mL (0.000-0.055) < 0.017 ng/mL (0.000-0.055) White Blood Count 8.1 x10^3/uL (4.0-11.0) Red Blood Count 4.17 x10^6/uL (4.30-5.70) Hemoglobin 12.9 g/dL (13.0-17.5) Hematocrit 37.1 % (39.0-53.0) Mean Corpuscular Volume 89 fL (79-100) Mean Corpuscular Hemoglobin 31 pg (25-35) Mean Corpuscular Hemoglobin Concent 35 g/dL (31-37) Red Cell Distribution Width 13.7 % (11.5-14.5) Platelet Count 164 x10^3/uL (140-400) Neutrophils (%) (Auto) 77 % (31-73) Lymphocytes (%) (Auto) 12 % (24-48) Monocytes (%) (Auto) 10 % (0-9) Eosinophils (%) (Auto) 1 % (0-3) Basophils (%) (Auto) 0 % (0-3) Neutrophils # (Auto) 6.2 x10^3uL (1.8-7.7) Lymphocytes # (Auto) 0.9 x10^3/uL (1.0-4.8) Monocytes # (Auto) 0.8 x10^3/uL (0.0-1.1) Eosinophils # (Auto) 0.1 x10^3/uL (0.0-0.7) Basophils # (Auto) 0.0 x10^3/uL (0.0-0.2) Sodium Level 144 mmol/L (136-145) Potassium Level 3.9 mmol/L (3.5-5.1) Chloride Level 107 mmol/L (98-107) Carbon Dioxide Level 27 mmol/L (21-32) Anion Gap 10 (6-14) Blood Urea Nitrogen 19 mg/dL (8-26) Creatinine 1.2 mg/dL (0.7-1.3) Estimated GFR (Cockcroft-Gault) 70.0 BUN/Creatinine Ratio 16 (6-20) Glucose Level 101 mg/dL (70-99) Calcium Level 8.5 mg/dL (8.5-10.1) Total Bilirubin 1.4 mg/dL (0.2-1.0) Aspartate Amino Transf (AST/SGOT) 24 U/L (15-37) Alanine Aminotransferase (ALT/SGPT) 32 U/L (16-63) Alkaline Phosphatase 63 U/L (46-116) Total Protein 6.3 g/dL (6.4-8.2) Albumin 3.5 g/dL (3.4-5.0) Albumin/Globulin Ratio 1.3 (1.0-1.7) Triglycerides Level 39 mg/dL (0-150) Cholesterol Level 152 mg/dL (0-200) LDL Cholesterol, Calculated 80 mg/dL (0-100) VLDL Cholesterol, Calculated 8 mg/dL (0-40) Non-HDL Cholesterol Calculated 88 mg/dL (0-129) HDL Cholesterol 64 mg/dL (40-60) Cholesterol/HDL Ratio 2.4 Medications Current Medications Aspirin (Children'S Aspirin) 324 mg 1X ONCE PO Last administered on 12/16/16 12:58; Start 12/16/16 at 13:00; Stop 12/16/16 at 13:01; Status DC Nitroglycerin (Nitrostat) 0.4 mg PRN Q5MIN PRN SL CHEST PAIN Last administered on 12/16/16 12:59; Start 12/16/16 at 13:00 Ondansetron HCl (Zofran) 4 mg PRN Q8HRS PRN IV NAUSEA/VOMITING; Start 12/16/16 at 15:45; Stop 12/17/16 at 15:44; Status DC Albuterol/ Ipratropium (Duoneb) 3 ml RTQID NEB ; Start 12/16/16 at 16:00; Stop 12/17/16 at 06:52; Status DC Acetaminophen (Tylenol) 650 mg PRN Q4HRS PRN PO PAIN Last administered on 20:20; Start 12/16/16 at 18:00 Aspirin (Children'S Aspirin) 81 mg DAILY PO Last administered on 12/17/16 08: 40; Start 12/17/16 at 09:00 Calcium Carbonate/ Glycine (Tums) 250 mg BID PO ; Start 12/16/16 at 21:00 Vitamin D (Vitamin D3) 1,000 unit DAILY PO Last administered on 12/17/16 17:41 ; Start 12/17/16 at 09:00 Latanoprost (Xalatan) 1 drop HS OU Last administered on 12/17/16 20:15; Start 12/16/16 at 21:00 Losartan Potassium (Cozaar) 50 mg DAILY PO Last administered on 12/17/16 08:41 ; Start 12/17/16 at 09:00 Brimonidine Tartrate (Alphagan) 1 drop BID OU Last administered on 12/18/16 09 :00; Start 12/16/16 at 21:00 Non-Formulary Medication 10.2 gm DAILY IH ; Start 12/17/16 at 09:00; Status UNV Naproxen (Naprosyn) 250 mg PRN BID PRN PO PAIN; Start 12/16/16 at 18:15 Budesonide (Pulmicort) 0.5 mg RTBID NEB ; Start 12/16/16 at 20:00; Stop at 06:52; Status DC Non-Formulary Medication 2 ea BID INH Last administered on 12/17/16 20:15; Start 12/17/16 at 10:00 Metoprolol Tartrate (Lopressor) 25 mg BID PO Last administered on 12/17/16 20: 16; Start 12/17/16 at 21:00 Iohexol (Omnipaque 300 Mg/ml) 75 ml 1X ONCE IV Last administered on 12/17/16t 17:09; Start 12/17/16 at 17:00; Stop 12/17/16 at 17:01; Status DC Info (Do NOT chart on this entry -- for MONITORING) 1 each PRN DAILY PRN MC SEE COMMENTS; Start 12/17/16 at 17:00; Stop 12/19/16 at 16:59 Regadenoson (Lexiscan) 0.4 mg 1X ONCE IV ; Start 12/18/16 at 12:45; Stop at 12:46; Status DC Active Scripts Active Reported Prevident 5000 (Sodium Fluoride) 100 Ml Gel..ml. 100 Ml DT Ibuprofen 800 Mg Tablet 800 Mg PO PRN Q6HRS PRN [Magic Mouthwash] 10 Ml TID PRN Cod Liver Oil 1 Each Capsule 1 Each PO DAILY Lotrisone Cream (Clotrimazole/Betamethasone Dip) 15 Gm Cream..g. 1 Abel TP BID Vitamin D3 (Cholecalciferol (Vitamin D3)) 1,000 Unit Tablet 1 Tab PO DAILY Tums (Calcium Carbonate) 200 Mg Tab.chew 200 Mg PO Benefiber (Wheat Dextrin) 1 Each Powd.pack 1 Each PO DAILY Aleve (Naproxen Sodium) 220 Mg Capsule 220 Mg PO BID PRN Symbicort 160-4.5 Mcg Inhaler (Budesonide/Formoterol Fumarate) 10.2 Gm Hfa.aer.ad 10.2 Gm IH DAILY Tylenol (Acetaminophen) 325 Mg Tablet 650 Mg PO Q4HRS PRN Aspirin 81 Mg Tab.chew 81 Mg PO DAILY Latanoprost 2.5 Ml Drops 1 Drop EACHEYE HS Losartan Potassium 50 Mg Tablet 50 Mg PO DAILY Alphagan P (Brimonidine Tartrate) 5 Ml Drops 1 Drop EACHEYE BID Vitals/I & O Vital Sign - Last 24 Hours 12/17/16 12/17/16 12/17/16 12/17/16 14:12 19:00 20:00 20:16 Temp 97.8 97.7 97.8 97.7 Pulse 76 61 61 Resp 17 16 B/P (MAP) 132/74 (93) 153/75 (101) 153/75 Pulse Ox 98 95 O2 Delivery Room Air Room Air Room Air 12/17/16 12/18/16 12/18/16 12/18/16 22:32 02:40 07:15 07:41 Temp 98.1 97.5 97.9 98.1 97.5 97.9 Pulse 63 87 66 Resp 16 19 18 B/P (MAP) 128/65 (86) 134/89 (104) 128/81 (97) Pulse Ox 94 96 96 O2 Delivery Room Air Room Air Room Air Room Air 12/18/16 12/18/16 12/18/16 09:00 09:00 10:30 Temp 97.8 97.8 Pulse 57 57 57 Resp 17 B/P (MAP) 124/71 124/71 124/71 (88) Pulse Ox 97 O2 Delivery Room Air FITO HOWARD MD Dec 18, 2016 12:51
--- NOTE | 2016-12-18 14:01 | CONS ---
DATE OF CONSULTATION: 12/17/2016 REQUESTING PHYSICIAN: Dr. Mariam Lemus. REASON FOR CONSULTATION: Stage IV lung cancer, now presenting with chest pain. HISTORY OF PRESENT ILLNESS: The patient is an 81-year-old -[place] gentleman who presented with hoarseness, dysphagia and dysphonia in September of 2015. He had an upper endoscopy and dilatation with no relief. He underwent a CT scan of the chest on 03/13/2016, which revealed a 4.2 cm mass in the left lower lobe of the lung. He also had evidence of a 3.4 cm right hepatic lobe mass suggestive of metastatic disease. He underwent a CT-guided biopsy of the left lung mass on 03/20/2016, which revealed poorly differentiated adenocarcinoma. PD-L1 was positive at 90% and hence he was started on palliative treatment with Keytruda on 04/23/2016. After 4 cycles of treatment, he had near resolution of the lung and liver lesions. He received cycle #12 of treatment on 12/10/2016. [facility] with chest pain. Cardiology was consulted. Troponins were normal. He was thought to have given chest pain. I was subsequently consulted for further evaluation. PAST MEDICAL HISTORY: Prostate cancer and bladder cancer in 1994, status post cystectomy, COPD, arthritis, hypertension. SOCIAL HISTORY: He quit smoking in 1994. He has a [id number] smoking history. FAMILY HISTORY: Negative for lung cancer. REVIEW OF SYSTEMS: A 14-point review of system was performed. Pertinent positives are mentioned in the history of present illness. Rest of the system review is negative. PHYSICAL EXAMINATION: GENERAL APPEARANCE: The patient is an 81-year-old -[place] gentleman who is well developed, well nourished, and in no acute cardiorespiratory distress. VITAL SIGNS: Blood pressure 132/74, temperature 97.8. HEAD: Atraumatic, normocephalic. EYES: No icterus. NECK: Supple. CHEST: Bilaterally symmetrical. HEART: S1, S2 normal. ABDOMEN: Soft, nontender. No hepatosplenomegaly. CENTRAL NERVOUS SYSTEM: No focal deficits. LYMPHATICS: No lymphadenopathy. SKIN: No rashes. PSYCHOLOGIC: Mood and affect are appropriate. MUSCULOSKELETAL: No joint effusions. LABORATORY DATA: WBC 8.1, hemoglobin 12.9, platelet count 164, creatinine 1.2, total bilirubin 1.4. IMPRESSION AND PLAN: 1. 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 EGFR and ALK mutation are negative. RAS1 mutation is also negative. PD-L1 is positive at 90%. He was started on immunotherapy with Keytruda on 04/23/2016 and he had near resolution of lung and liver lesions. He is tolerating the treatments very well. His most recent treatment was completed on 12/10/2016. I have advised him to continue to follow up with me upon discharge for continuation of immunotherapy. 2. Chest pain. I appreciate cardiology consultation, cardiac source has been ruled out. With the history of stage IV malignancy, he is at high risk for thromboembolic events. I will obtain CT angiogram of the chest to evaluate for pulmonary embolism. 3. History of bladder and prostate cancer in 1994 with no evidence of recurrence. 4. Chronic obstructive pulmonary disease. Continue following up with Pulmonary Medicine. CARLEEN SANFORD MD DR: FABIAN/nts JOB#: [id number] / [id number] MARGRET Wright MD
[2016-12-18 14:22] VITALS: BP 135/80
--- NOTE | 2016-12-18 15:02 | PDOC ---
CARDIO Progress Notes Date and Time Date of Service 12/18/16 Time of Evaluation 1215 Subjective Subjective: No Chest Pain, No shortness of breath Vitals Vitals Vital Signs Date Time Temp Pulse Resp B/P (MAP) Pulse Ox O2 Delivery O2 Flow Rate FiO2 12/18/16 14:22 98.0 83 17 135/80 (98) 95 Room Air 98.0 Weight Weight [ ] Physical Exam HEENT: Neck Supple W Full Motion Chest: Symmetric LUNGS: Clear to Auscultation Heart: S1S2, RRR, murmurs (2/6 systolic murmur ) Abdomen: Soft N/T Extremities: No Edema Neurology: alert, oriented, follow commands Assessment Assessment 1. Chest pain, with atypical. Troponin series normal, AMI ruled out. Previous echo (01/2016) with preserved LV function. Repeat echo pending. MPI underway to assess for ischemia. CT chest negative for PE. 2. CAD s/p remote PCI/stent placement. appears stable. presently CP free. continue ASA, ARB, and BB 3. Hypertension; well-controlled 4. Hyperlipidemia; lipids on goal 5. Lung CA with metastasis to liver; good response to treatment. Continue as per oncology. RACHELE SUAREZ APRN Dec 18, 2016 15:02
--- NOTE | 2016-12-18 15:06 | RAD ---
APPROVED REPORT Test Type: Pharmacological Stress Nurse/Tech: Yulisa Kiser R.N. Test Indications: Chest pain, CAD. Cardiac History: PTCA, HTN Medications: SEE EMR Medical History: SEE EMR Resting ECG: SR Resting Heart Rate: 62 bpm Resting Blood Pressure: 126/73mmHg Pretest Chest Pain: None Nurse/Tech Notes S1S2, lungs CTA but diminished in the bases, denied chest pain and SOA. Consent: The procedure was explained to the patient in lay terms. Informed consent was witnessed. Nomi eout was entered into [employer] ([employer] History and Stress Test performed by Yulisa Kiser R.N. Pharm. Details Pharmacologic stress testing was performed using 0.4mg per 5ml of regadenoson given intravenously ove r 7-10 seconds. Stress Symptoms Pt c/o of mid-sternal chest pressure which resolved within the first minute of the test. Resolved wit hin a few seconds. POST EXERCISE Reason for Termination: Infusion complete Max HR: 99 bpm Max Blood Pressure: 133/68mmHg Blood Pressure response to exercise: Normal blood pressure response during stress. Heart Rate response to exercise: Normal Chest Pain: No. Arrhythmia: No. ST Change: No. INTERPRETATION Stress EKG Conclusion: The resting EKG shows a sinus rhythm, small Q waves in V1 and V2 and nonspecif ic T inversion in V1 and V2. The stress EKG shows no significant changes from baseline. Abnormal baseline EKG but no EKG evidence of inducible ischemia. Imaging Protocol IMAGE PROTOCOL: Rest Tc-99m/stress Tc-99m 1 day Rest: Stress: Viability: Radiopharm.Tc99m GizdolqwvOu36l Sestamibi Lklz40pTc 32mCi Img Date 12/18/2016 12/18/2016 Inj-Img [id number]. 60min. Rest Admin Site:IV - Left AntecubitalAdministrator:KENDRA Perez, ARRT (R)(N) Stress Admin Site: IV - Left AntecubitalAdministrator: Tank Valladares, RT (R)(N) STRESS DATA End Diast. Vol.93.0mlAv. Heart Rate74.0bpm End Syst. Vol.46.0mlCO Index BSA0.0L/min Myocardial Uvza277.0gEject. Hcnapveu51.0% Stress Rates Pk. Fill Rate1.91EDV/secLVtime Pk. Fill 222.91msec Pk. Empty Rate2.44ESV/secLVtime Pk. Wncgl345.43msec 1/3 Pk. Fill0.49EDV/sec Stress Scores Regional WT3.00Summed WT32.00 Regional WM0.00Summed WM12.00 LV Perfusion The stress scans showed no significant defects. The rest scans showed no significant defects. Nuclear imaging shows no reversible ischemia or infarct. Wall Motion Intact LV systolic function with an ejection fraction of 51%. LV Perf. Quant 17 Seg. SSS2.00 17 Seg. SRS6.00 17 Seg. SDS1.00 Stress Defect Extent (% LAD)0.00Rest Defect Extent (% LAD)0.00Rev. Defect Extent (% LAD)0.00 Stress Defect Extent (% LCX) 0.00Rest Defect Extent (% LCX)0.00Rev. Defect Extent (% LCX)0.00 Stress Defect Extent (% RCA)0.00Rest Defect Extent (% RCA)38.90Rev. Defect Extent (% RCA)0.00 Stress Defect Extent (% JACOB)0.00Rest Defect Extent (% JACOB)7.60Rev. Defect Extent (% JACOB)0.00 Conclusion 1. Abnormal baseline EKG but no EKG evidence of stressed induced ischemia. 2. Nuclear imaging shows no reversible ischemia or infarct. 3. Intact LV systolic function with an ejection fraction of 51%. 4. Low to moderately low risk Lexiscan nuclear stress test.
--- NOTE | 2016-12-18 15:15 | CARD ---
APPROVED REPORT EXAM: Two-dimensional and M-mode echocardiogram with Doppler and color Doppler. Other Information Quality : GoodHR: 57bpm Rhythm : PVC's INDICATION Chest Pain RISK FACTORS CAD 2D DIMENSIONS RVDd3.6 (2.9-3.5cm)Left Atrium(2D)3.5 (1.6-4.0cm) IVSd1.0 (0.7-1.1cm)Aortic Root(2D)3.2 (2.0-3.7cm) LVDd5.3 (3.9-5.9cm)LVOT Diameter2.4 (1.8-2.4cm) PWd1.0 (0.7-1.1cm)LVDs3.9 (2.5-4.0cm) FS (%) 27.4 %SV72.6 ml M-Mode DIMENSIONS LVDd5.05 (4.0-5.6cm) Aortic Valve AoV Peak Michael.116.4cm/sAoV VTI27.3cm AO Peak GR.5.4mmHgLVOT Peak Michael.87.5cm/s AO Mean GR.3mmHgAVA (VMAX)3.37cm2 AI P 1/2 [id number] Mitral Valve MV E Wdwmmeqz46.3cm/sMV DECEL [id number] MV A Fvymzlko72.0cm/sE/A Ratio0.8 MV A [id number] Pulmonary Valve PV Peak Fhkeerlk79.2cm/s Tricuspid Valve TR P. Basvwbzm116ft/sTR Peak Gr.24mmHg Pulmonary Vein S1 Hkbgwbyb82.8cm/sD2 Bczlwdsg12.7cm/s PVa imxzbgpm02njly LEFT VENTRICLE The left ventricle is normal size. There is normal left ventricular wall thickness. Left ventricle sy stolic function is low normal to mildly decreased. The Ejection Fraction is 45-50%. There is mild [place] bal hypokinesis of the left ventricle. Transmitral Doppler flow pattern is Grade I-abnormal relaxatio n pattern. No left ventricle thrombus noted on this study. RIGHT VENTRICLE The right ventricle is normal size. There is normal right ventricular wall thickness. The right ventr icular systolic function is normal. ATRIA The left atrium size is normal. The right atrium size is normal. The interatrial septum is intact wit h no evidence for an atrial septal defect or patent foramen ovale as noted on 2-D or Doppler imaging. AORTIC VALVE The aortic valve is mildly thickened. The aortic valve is trileaflet. Doppler and Color Flow revealed mild aortic regurgitation. There is no significant aortic valvular stenosis. MITRAL VALVE The mitral valve leaflets are thickened. There is no evidence of mitral valve prolapse. There is no m itral valve stenosis. Doppler and Color Flow revealed trace mitral valve regurgitation. TRICUSPID VALVE Doppler and Color Flow revealed trace tricuspid regurgitation. The pulmonary artery systolic pressure is estimated at 27 mmHg. PULMONIC VALVE The pulmonary valve is not well visualized but appears to open adequately. Doppler and Color Flow rev ealed mild pulmonic valvular regurgitation. There is no pulmonic valvular stenosis by spectral Dopple r. GREAT VESSELS The aortic root is normal in size. The ascending aorta is normal in size. The pulmonary artery is nor mal. The IVC is normal in size and collapses >50% with inspiration. PERICARDIAL EFFUSION There is no evidence of significant pericardial effusion. Critical Notification Critical Value: No <Conclusion> The left ventricle is normal size. Left ventricle systolic function is low normal to mildly decreased. The Ejection Fraction is 45-50%. There is mild global hypokinesis of the left ventricle. There is no significant aortic valvular stenosis. Doppler and Color Flow revealed mild aortic regurgitation. Doppler and Color Flow revealed trace mitral valve regurgitation. Doppler and Color Flow revealed trace tricuspid regurgitation. The pulmonary artery systolic pressure is estimated at 27 mmHg.
[2016-12-18] MEDS ORDERED: FLU VACC QS2017-18 (36MOS+)/PF 0.5 ML SYRINGE. VAX IM ONE (16:15)
== END 2016-12-18 16:45 | disposition home or self-care (01) | DRG 392 ==
LOC: ER 11:06 → 6 SOUTH 14:06 → OBSVTOIN 12-17 08:49
PROVIDERS: ADMIT Internal Medicine Hematology & Oncology; ATTEND Internal Medicine Hematology & Oncology
DX: K21.9 Gastro-esophageal reflux disease without esophagitis (principal); C78.7 Secondary malignant neoplasm of liver and intrahepatic bile duct; J44.9 Chronic obstructive pulmonary disease, unspecified; C34.32 Malignant neoplasm of lower lobe, left bronchus or lung; E78.5 Hyperlipidemia, unspecified; I25.10 Atherosclerotic heart disease of native coronary artery without angina pectoris; E78.00 Pure hypercholesterolemia, unspecified; I10 Essential (primary) hypertension; Z82.49 Family history of ischemic heart disease and other diseases of the circulatory system; Z85.46 Personal history of malignant neoplasm of prostate; Z85.51 Personal history of malignant neoplasm of bladder; Z87.891 Personal history of nicotine dependence; Z95.5 Presence of coronary angioplasty implant and graft; Z98.1 Arthrodesis status; Z88.2 Allergy status to sulfonamides; Z88.1 Allergy status to other antibiotic agents
CPT/HCPCS: 36415; 71010; 71275; 78452; 80053; 80061; 83880; 84484; 85025; 93005; 93017; 93306; 96374; 96375; 96376; A9500; G0378; G0379; J2785; Q9967; 99285-25

== ENCOUNTER 2016-12-20 00:44 | Inpatient (IN) | payer MEDICARE, OTHER ==
[2016-12-20] VITALS (9 sets, daily range): BP systolic 100–145; BP diastolic 50–78
[~2016-12-20] VITALS: Ht 180.3 cm; Wt 69.6 kg
[~2016-12-20 00:44] MED LIST changes: +CALC200T3 PO; +CHOL10003 PO; +CLOT15CR3 TP; +COD1CAPS2 PO; +IBUP-1060 PO; +MAGIC MOUTHWASH; +SODI100G DT; +WHEA1POW8 PO
[2016-12-20 01:20] LABS: BASO % 0 % (0-3); EOS % 1 % (0-3); HEMATOCRIT 38.9 % (39.0-53.0); HEMOGLOBIN 12.7 g/dL (13.0-17.5); LYMPH # 0.9 x10^3/uL (1.0-4.8); LYMPH % 8 % (24-48); MEAN CORPUSCULAR HEMOGLOBIN 30 pg (25-35); MEAN CORPUSCULAR HGB CONC 33 g/dL (31-37); MEAN CORPUSCULAR VOLUME 91 fL (79-100); MONO % 13 % (0-9); NEUT % 78 % (31-73); PLATELET COUNT 168 x10^3/uL (140-400); RED BLOOD COUNT 4.26 x10^6/uL (4.30-5.70); RED CELL DISTRIBUTION WIDTH 13.5 % (11.5-14.5); WHITE BLOOD COUNT 11.4 x10^3/uL (4.0-11.0)
[2016-12-20 01:30] LABS: PROTHROMBIN TIME PATIENT 12.7 SEC (11.7-14.0)
[2016-12-20 01:32] LABS: CALCIUM 9.4 mg/dL (8.5-10.1); CREATININE 1.5 mg/dL (0.7-1.3); GFR 54.1; POTASSIUM 3.8 mmol/L (3.5-5.1)
[2016-12-20 01:38] LABS: ALBUMIN 3.9 g/dL (3.4-5.0); ALBUMIN/GLOBULIN RATIO 1.1 (1.0-1.7); TOTAL BILIRUBIN 1.2 mg/dL (0.2-1.0); TOTAL PROTEIN 7.3 g/dL (6.4-8.2)
[2016-12-20] MEDS ORDERED: CONTRAST GIVEN MC PRN (01:45)
[2016-12-20] MEDS ORDERED: IOHEXOL 300 MG/ML 75 ML VIAL IV ONE (02:00)
--- NOTE | 2016-12-20 02:29 | RAD ---
INDICATION: syncopy today. no known head injury
previous 01/10/16 COMPARISON: January 10, 2016 TECHNIQUE: Axial CT images obtained through the head without intravenous contrast. One or more of the following individualized dose reduction techniques were utilized for this examination: 1. Automated exposure control; 2. Adjustment of the mA and/or kV according to patient size; 3. Use of iterative reconstruction technique. FINDINGS: No intracranial hemorrhage. No midline shift. Basal cisterns patents. Ventricles and sulci are globally prominent. No acute osseous abnormality. Orbits and paranasal sinuses unremarkable. Scattered foci of low attenuation within the white matter. IMPRESSION: 1. No acute intracranial hemorrhage. 2. Scattered regions of low attenuation within the white matter. Non-specific in nature but frequently secondary to chronic small vessel ischemic disease. 3. Prominence of ventricles and sulci which is frequently secondary to age related volume loss. Electronically signed by: Anibal Louise MD (12/20/2016 2:26 AM) [facility]
--- NOTE | 2016-12-20 02:46 | RAD ---
INDICATION: ABDOMINAL DISTENSION. H/O LUNG, BLADER CANCER, LIVER METS. IV OMNI 300 60 MLS DUE TO ELEVATED LABS. PREVIOUS 09/30/16 COMPARISON: September 30, 2016 TECHNIQUE: Axial CT images were obtained through the abdomen and pelvis with intravenous contrast. One or more of the following individualized dose reduction techniques were utilized for this examination: 1. Automated exposure control; 2. Adjustment of the mA and/or kV according to patient size; 3. Use of iterative reconstruction technique. FINDINGS: Small amount of fluid is again seen at partially visualized anterior mediastinum. Calcific atherosclerosis without abdominal aortic aneurysm. No intrahepatic bile duct dilation. There are couple of low-attenuation lesions of the liver. This includes within the right lobe inferiorly measuring up proximally 8 mm which was likely present on prior and additional low-attenuation lesion near the hepatic dome measuring approximately 7 mm. This one is better seen on current exam. No definite peripancreatic edema. Mild prominence of pancreatic duct. Spleen unremarkable. Nodular thickening of left adrenal gland is again seen. This is low-attenuation on prior noncontrast exam therefore could be secondary to hyperplasia or adenoma. Probable cyst right kidney. No hydronephrosis. Bladder is partially distended. The urinary bladder has a bilobed appearance with a smaller component inferiorly and a larger component superiorly. Colonic diverticulosis. No definite dilated loops of bowel to suggest obstruction. The suspected appendix does not appear grossly inflamed. Mild scoliotic curvature of the lumbar spine with degenerative changes. There is some narrowing of the central canal neural foramina at multiple levels. Subcentimeter sclerotic focus sacrum again seen. Degenerative changes of hips. IMPRESSION: 1. There is a couple of mildly dilated loops of distal small bowel but no definite high-grade transition point to suggest obstruction. 2. There is a couple low-attenuation lesions within the liver. Too small to characterize on this examination. Electronically signed by: Anibal Louise MD (12/20/2016 2:42 AM) [facility]
[2016-12-20] MEDS ORDERED: ACETAMINOPHEN 325 MG TABLET. PO PRN ×2 (04:30→09:30)
[2016-12-20] MEDS ORDERED: ONDANSETRON PF 4 MG/2 ML VIAL. IV PRN (04:30)
--- NOTE | 2016-12-20 04:45 | PHYS DOC ---
Past Medical History Past Medical History: CAD, Cancer, COPD, GERD, High Cholesterol, Hypertension Additional Past Medical Histor: cervical pain, bladder CA, Lung CA, Liver CA. Past Surgical History: Cervical Fusion Additional Past Surgical Histo: bladder surgery due to CA. Alcohol Use: None Drug Use: None Adult General Chief Complaint Chief Complaint: DIZZY/LIGHT HEADED HPI HPI Patient is a 81 year old male who presents with syncope. The patient states he stood up from sitting at the computer, walked into his bedroom, "saw stars," & collapsed onto the bed. His saw that he was unconscious. He did not fall to the ground. A glass broke in his hand when he fell but he did not sustain a laceration. Denies tongue biting but reports urinary incontinence at the time of syncopal episode. He woke up after a brief period of time & did not seem excessively tired but was confused. No injuries. Denies chest pain, palpitations, shortness of breath, nausea, vomiting, extremity numbness/ weakness. He reports abdominal distention & diffuse pain. He also reports improving cramping pain in all 4 extremities. Recent hospital admission this week for chest pain, had unremarkable cardiac evaluation & negative CTA exam for PE. History of lung cancer with liver mets on palliative chemo, HTN, COPD, CAD. PCP is Dr. Esteban. Review of Systems Review of Systems Constitutional: Denies fever or chills, reports syncope. Eyes: Denies change in visual acuity HENT: Denies nasal congestion or sore throat Respiratory: Denies cough or shortness of breath Cardiovascular: Denies chest pain or edema GI: Reports abdominal pain & distention, denies nausea, vomiting, bloody stools or diarrhea : Denies dysuria or hematuria Musculoskeletal: Denies back pain or joint pain Integument: Denies rash or skin lesions Neurologic: Denies headache, focal weakness or sensory changes Current Medications Current Medications Current Medications Medications (Trade) Dose Ordered Sig/Norma Start Time Stop Time Status Last Admin Dose Admin Info (Do NOT chart on this entry -- for MONITORING) 1 each PRN DAILY PRN 12/20/16 01:45 12/22/16 01:44 Iohexol (Omnipaque 300 Mg/ml) 75 ml 1X ONCE 12/20/16 02:00 12/20/16 02:01 DC 12/20/16 01:49 75 ML Allergies Allergies Allergies Coded Allergies Type Severity Reaction Last Updated Verified Sulfa (Sulfonamide Antibiotics) Allergy Intermediate 06/29/14 Yes doxycycline Allergy Intermediate 03/20/16 Yes Physical Exam Physical Exam Constitutional: Well developed, well nourished, no acute distress, non-toxic appearance. HENT: Normocephalic, atraumatic, bilateral external ears normal, oropharynx moist, nose normal. Eyes: PERRLA, EOMI, conjunctiva normal, no discharge. Neck: supple, no stridor. no nuchal rigidity Cardiovascular: RRR, no murmurs, no edema. Lungs & Thorax: LCTAB, no wheezing, no respiratory distress. Abdomen: soft, nontender, nondistended. Skin: Warm, dry, no erythema, no rash. Back: No tenderness. Extremities: No tenderness, no edema. no calf tenderness or swelling. Neurologic: Alert and oriented X 3, CN2-12 grossly intact, symmetric strength/ sensation to upper & lower extremities, no focal deficits noted. Psychologic: Affect normal, judgement normal, mood normal. Current Patient Data Vital Signs Vital Signs Date Time Temp Pulse Resp B/P (MAP) Pulse Ox O2 Delivery O2 Flow Rate FiO2 12/20/16 02:20 84 16 127/62 (83) 97 Room Air 12/20/16 01:06 98.0 98.0 Lab Values Laboratory Tests Test 12/20/16 01:08 White Blood Count 11.4 x10^3/uL (4.0-11.0) H Red Blood Count 4.26 x10^6/uL (4.30-5.70) L Hemoglobin 12.7 g/dL (13.0-17.5) L Hematocrit 38.9 % (39.0-53.0) L Mean Corpuscular Volume 91 fL (79-100) Mean Corpuscular Hemoglobin 30 pg (25-35) Mean Corpuscular Hemoglobin Concent 33 g/dL (31-37) Red Cell Distribution Width 13.5 % (11.5-14.5) Platelet Count 168 x10^3/uL (140-400) Neutrophils (%) (Auto) 78 % (31-73) H Lymphocytes (%) (Auto) 8 % (24-48) L Monocytes (%) (Auto) 13 % (0-9) H Eosinophils (%) (Auto) 1 % (0-3) Basophils (%) (Auto) 0 % (0-3) Neutrophils # (Auto) 8.8 x10^3uL (1.8-7.7) H Lymphocytes # (Auto) 0.9 x10^3/uL (1.0-4.8) L Monocytes # (Auto) 1.5 x10^3/uL (0.0-1.1) H Eosinophils # (Auto) 0.1 x10^3/uL (0.0-0.7) Basophils # (Auto) 0.0 x10^3/uL (0.0-0.2) Prothrombin Time 12.7 SEC (11.7-14.0) Prothrombin Time INR 1.0 (0.8-1.1) PTT 30 SEC (24-38) Sodium Level 144 mmol/L (136-145) Potassium Level 3.8 mmol/L (3.5-5.1) Chloride Level 107 mmol/L (98-107) Carbon Dioxide Level 28 mmol/L (21-32) Anion Gap 9 (6-14) Blood Urea Nitrogen 31 mg/dL (8-26) H Creatinine 1.5 mg/dL (0.7-1.3) H Estimated GFR (Cockcroft-Gault) 54.1 BUN/Creatinine Ratio 21 (6-20) H Glucose Level 105 mg/dL (70-99) H Calcium Level 9.4 mg/dL (8.5-10.1) Total Bilirubin 1.2 mg/dL (0.2-1.0) H Aspartate Amino Transferase (AST) 31 U/L (15-37) Alanine Aminotransferase (ALT) 32 U/L (16-63) Alkaline Phosphatase 67 U/L (46-116) Troponin I Quantitative < 0.017 ng/mL (0.000-0.055) DD-Kzb-[id number]-Type Natriuretic Peptide 93 pg/mL (0-449) Total Protein 7.3 g/dL (6.4-8.2) Albumin 3.9 g/dL (3.4-5.0) Albumin/Globulin Ratio 1.1 (1.0-1.7) Laboratory Tests 12/20/16 01:08 Laboratory Tests 12/20/16 01:08 EKG EKG interpreted by me: NSR rate 83, T waves inverted in V1-V2 without ST depression , normal intervals, no ectopy.[] Radiology/Procedures Radiology/Procedures PROCEDURE: CT HEAD WO CONTRAST INDICATION: syncopy today. no known head injury
previous 01/10/16 COMPARISON: January 10, 2016 TECHNIQUE: Axial CT images obtained through the head without intravenous contrast. One or more of the following individualized dose reduction techniques were utilized for this examination: 1. Automated exposure control; 2. Adjustment of the mA and/or kV according to patient size; 3. Use of iterative reconstruction technique. FINDINGS: No intracranial hemorrhage. No midline shift. Basal cisterns patents. Ventricles and sulci are globally prominent. No acute osseous abnormality. Orbits and paranasal sinuses unremarkable. Scattered foci of low attenuation within the white matter. IMPRESSION: 1. No acute intracranial hemorrhage. 2. Scattered regions of low attenuation within the white matter. Non-specific in nature but frequently secondary to chronic small vessel ischemic disease. 3. Prominence of ventricles and sulci which is frequently secondary to age related volume loss. Electronically signed by: Laurence Brown MD (12/20/2016 2:26 AM) [facility] DICTATED and SIGNED BY: LAURENCE BROWN MD DATE: 12/20/160 PROCEDURE: CT ABD PELV W/ IV CONTRST ONLY INDICATION: ABDOMINAL DISTENSION. H/O LUNG, BLADER CANCER, LIVER METS. IV OMNI 300 60 MLS DUE TO ELEVATED LABS. PREVIOUS 09/30/16 COMPARISON: September 30, 2016 TECHNIQUE: Axial CT images were obtained through the abdomen and pelvis with intravenous contrast. One or more of the following individualized dose reduction techniques were utilized for this examination: 1. Automated exposure control; 2. Adjustment of the mA and/or kV according to patient size; 3. Use of iterative reconstruction technique. FINDINGS: Small amount of fluid is again seen at partially visualized anterior mediastinum. Calcific atherosclerosis without abdominal aortic aneurysm. No intrahepatic bile duct dilation. There are couple of low-attenuation lesions of the liver. This includes within the right lobe inferiorly measuring up proximally 8 mm which was likely present on prior and additional low-attenuation lesion near the hepatic dome measuring approximately 7 mm. This one is better seen on current exam. No definite peripancreatic edema. Mild prominence of pancreatic duct. Spleen unremarkable. Nodular thickening of left adrenal gland is again seen. This is low-attenuation on prior noncontrast exam therefore could be secondary to hyperplasia or adenoma. Probable cyst right kidney. No hydronephrosis. Bladder is partially distended. The urinary bladder has a bilobed appearance with a smaller component inferiorly and a larger component superiorly. Colonic diverticulosis. No definite dilated loops of bowel to suggest obstruction. The suspected appendix does not appear grossly inflamed. Mild scoliotic curvature of the lumbar spine with degenerative changes. There is some narrowing of the central canal neural foramina at multiple levels. Subcentimeter sclerotic focus sacrum again seen. Degenerative changes of hips. IMPRESSION: 1. There is a couple of mildly dilated loops of distal small bowel but no definite high-grade transition point to suggest obstruction. 2. There is a couple low-attenuation lesions within the liver. Too small to characterize on this examination. Electronically signed by: Laurence Brown MD (12/20/2016 2:42 AM) [facility] DICTATED and SIGNED BY: LAURENCE BROWN MD DATE: 12/20/16 0226[] Course & Med Decision Making Course & Med Decision Making Pertinent Labs and Imaging studies reviewed. (See chart for details) The patient presents with syncope with incontinence. Neurologically intact here. Obtained CT head as well as CT abdomen/pelvis with no acute findings identified. Obtained labs & EKG. No evidence of cardiac arrhythmia here. Recommended admission for further evaluation including cardiac telemetry monitoring as well as cardiology & neurology consultation - concern that this could be related to arrhythmia or possibly seizure as he had accompanying incontinence. The patient agreed with plan of care. Discussed with Dr. Lemus who agrees to admit to inpatient status. Consults to Dr. Carpenter of cardiology & Dr. Moctezuma of neurology. The patient is admitted in stable condition. [] Dragon Disclaimer Dragon Disclaimer This electronic medical record was generated, in whole or in part, using a voice recognition dictation system. Departure Departure Impression: Primary Impression: Syncope Disposition: ADMITTED INPATIENT Condition: STABLE WINSOME AGUILAR MD Dec 20, 2016 04:45
--- NOTE | 2016-12-20 07:20 | EKG ---
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
--- NOTE | 2016-12-20 09:19 | PDOC2 ---
CARDIAC CONSULT DATE OF CONSULT Date of Consult DATE: 12/20/16 TIME: 09:05 REASON FOR CONSULT Reason for Consult: Syncope REFERRING PHYSICIAN Referring Physician: Janay SOURCE Source: Chart review, Patient HISTORY OF PRESENT ILLNESS HISTORY OF PRESENT ILLNESS This is a pleasant 81 yo male admitted for complains of passing out. Reports that he was sitting and looking at hte computer when he felt blurry on his vision. He then decided to stand up and was byt the bed and end up passing out and landing face first on the bed. He was standing and the next thing he noted upon waking up was he was on the bed with urinary incontinence, mild discomfort in his inner thighs and cramping sensation to his hands. He was also noted to be slightly confused. This was witnessed as the was in bed but could not ascertain the duration of unconsciousness. Prior to passing out he felt that he had to go to the BR to have a BM which he finally did after waking up after he passed out. Denies any tinnitus, facial tingling, MELVIN, unilateral weakness, facial droop, photopsia, or dysarthria. He does admit that he did not adequately hydrate himself yesterday and he took his BP meds. Reports that he has not passed out in the past and no seizures or arrhythmias in the past. Denies any CP, SOA, palpitations, or frequent dizziness. PAST MEDICAL HISTORY Cardiovascular: CAD, HTN, Mitral valve stenosis Pulmonary: COPD CENTRAL NERVOUS SYSTEM: Other (No pertinent history) GI: GERD Heme/Onc: Anemia NOS, Cancer (stage 4 lung CA) Hepatobiliary: No pertinent hx Psych: No pertinent hx Musculoskeletal: Osteoarthritis Rheumatologic: No pertinent hx Infectious disease: No pertinent hx ENT: No pertinent hx Renal/: Prostate Ca. Endocrine: No pertinent hx Dermatology: No pertinent hx PAST SURGICAL HISTORY Past Surgical History Hernia Repair, Other (PCI/stent placement, prostatectomy ) FAMILY HISTORY Family History: Coronary Artery Disease SOCIAL HISTORY Smoke: Quit ALCOHOL: none Drugs: None Lives: with Family CURRENT MEDICATIONS CURRENT MEDICATIONS Current Medications Medications (Trade) Dose Ordered Sig/Norma Route PRN Reason Start Time Stop Time Status Last Admin Dose Admin Iohexol (Omnipaque 300 Mg/ml) 75 ml 1X ONCE IV 12/20/16 02:00 12/20/16 02:01 DC 12/20/16 01:49 ALLERGIES ALLERGIES: Coded Allergies: Sulfa (Sulfonamide Antibiotics) (Verified Allergy, Intermediate, 06/29/14) doxycycline (Verified Allergy, Intermediate, 03/20/16) ROS Review of System 14 point ROS evaluated with pertinent positives noted per HPI PHYSICAL EXAM General: Alert, Oriented X3, Cooperative, No acute distress HEENT: Atraumatic, Mucous membr. moist/pink Lungs: Clear to auscultation, Normal air movement Heart: Regular rate (SR), Normal S1, Normal S2, Other (2/6 systolic murmur to LLS border) Abdomen: Soft, No tenderness Extremities: No cyanosis, No edema Skin: No breakdown, No significant lesion Neuro: Normal speech, Sensation intact Psych/Mental Status: Mental status NL, Mood NL MUSCULOSKELETAL: Osteoarthritic changes both hands VITALS VITALS Vital Signs Date Time Temp Pulse Resp B/P (MAP) Pulse Ox O2 Delivery O2 Flow Rate FiO2 12/20/16 07:02 98.7 70 16 131/73 (92) 97 Room Air 98.7 LABS Lab: Laboratory Tests Test 12/20/16 01:08 White Blood Count 11.4 x10^3/uL (4.0-11.0) Red Blood Count 4.26 x10^6/uL (4.30-5.70) Hemoglobin 12.7 g/dL (13.0-17.5) Hematocrit 38.9 % (39.0-53.0) Mean Corpuscular Volume 91 fL (79-100) Mean Corpuscular Hemoglobin 30 pg (25-35) Mean Corpuscular Hemoglobin Concent 33 g/dL (31-37) Red Cell Distribution Width 13.5 % (11.5-14.5) Platelet Count 168 x10^3/uL (140-400) Neutrophils (%) (Auto) 78 % (31-73) Lymphocytes (%) (Auto) 8 % (24-48) Monocytes (%) (Auto) 13 % (0-9) Eosinophils (%) (Auto) 1 % (0-3) Basophils (%) (Auto) 0 % (0-3) Neutrophils # (Auto) 8.8 x10^3uL (1.8-7.7) Lymphocytes # (Auto) 0.9 x10^3/uL (1.0-4.8) Monocytes # (Auto) 1.5 x10^3/uL (0.0-1.1) Eosinophils # (Auto) 0.1 x10^3/uL (0.0-0.7) Basophils # (Auto) 0.0 x10^3/uL (0.0-0.2) Prothrombin Time 12.7 SEC (11.7-14.0) Prothromb Time International Ratio 1.0 (0.8-1.1) Activated Partial Thromboplast Time 30 SEC (24-38) Sodium Level 144 mmol/L (136-145) Potassium Level 3.8 mmol/L (3.5-5.1) Chloride Level 107 mmol/L (98-107) Carbon Dioxide Level 28 mmol/L (21-32) Anion Gap 9 (6-14) Blood Urea Nitrogen 31 mg/dL (8-26) Creatinine 1.5 mg/dL (0.7-1.3) Estimated GFR (Cockcroft-Gault) 54.1 BUN/Creatinine Ratio 21 (6-20) Glucose Level 105 mg/dL (70-99) Calcium Level 9.4 mg/dL (8.5-10.1) Total Bilirubin 1.2 mg/dL (0.2-1.0) Aspartate Amino Transf (AST/SGOT) 31 U/L (15-37) Alanine Aminotransferase (ALT/SGPT) 32 U/L (16-63) Alkaline Phosphatase 67 U/L (46-116) Troponin I Quantitative < 0.017 ng/mL (0.000-0.055) VA-Phg-C-Type Natriuretic Peptide 93 pg/mL (0-449) Total Protein 7.3 g/dL (6.4-8.2) Albumin 3.9 g/dL (3.4-5.0) Albumin/Globulin Ratio 1.1 (1.0-1.7) ECHOCARDIOGRAM ECHOCARDIOGRAM <Conclusion> The left ventricle is normal size. Left ventricle systolic function is low normal to mildly decreased. The Ejection Fraction is 45-50%. There is mild global hypokinesis of the left ventricle. There is no significant aortic valvular stenosis. Doppler and Color Flow revealed mild aortic regurgitation. Doppler and Color Flow revealed trace mitral valve regurgitation. Doppler and Color Flow revealed trace tricuspid regurgitation. The pulmonary artery systolic pressure is estimated at 27 mmHg. DATE: 12/18/16 2744 STRESS TEST STRESS TEST Conclusion 1. Abnormal baseline EKG but no EKG evidence of stressed induced ischemia. 2. Nuclear imaging shows no reversible ischemia or infarct. 3. Intact LV systolic function with an ejection fraction of 51%. 4. Low to moderately low risk Lexiscan nuclear stress test. DATE: 12/18/16 1506 ASSESSMENT/PLAN ASSESSMENT/PLAN 1. Syncope with nontraumatic fall: Suspect vasovagal. No orthostasis. Seizure could not be ruled out with noted urinary incontinence and extremity cramps. Doubt any arrhythmia. 2. Prerenal azotemia: likely from inadequate intravascular volume. Keytruda could increase Cr and also could potentiate seizure. . Per PCP 3. Abdominal pain with diarrhea and distension: per PCP 4. Stage 4 NSCLC with liver mets: on palliative chemo (Keytruda) 5. CAD: prior PCI/stent. Recent MPI unremarkable for reversible defects 6. HTN: controlled 7. HLP: controlled 8. COPD Recommendations 1. Neurology consult. 2. UA. If notable for ectopies then will consider event monitor otherwise no further cardiac testing. 3. Start IVF x1, hold losartan today. Hydralazine IV PRN 4. Restart metoprolol, ASA, PPI, and low dose statin. Problems: RADHA RUSSO PAINT SPECIALIST Dec 20, 2016 09:19
[2016-12-20] MEDS ORDERED: IBUPROFEN 800 MG TABLET. PO PRN (10:00)
[2016-12-20] MEDS ORDERED: NAPROXEN 250 MG TABLET PO PRN (10:00)
[2016-12-20] MEDS ORDERED: LOSARTAN POTASSIUM 50 MG TABLET. PO SCH (10:00)
[2016-12-20] MEDS ORDERED: LIDO:MAALOX:BENADRYL 1:1:1 180 ML BOTTLE. PO PRN (10:00)
--- NOTE | 2016-12-20 10:50 | HP ---
ADMIT DATE: 12/20/2016 CHIEF COMPLAINT: Dizziness, weakness. HISTORY OF PRESENT ILLNESS: The patient is a pleasant 81-year-old male who has a history of prostate and bladder cancer that is cured, but now, he has lung cancer, which has metastasized to his liver. Clinically, he looks okay. He does not seem to have cancer, but he got very weak and dizzy. He was at the computer. He actually thinks he passed out. He saw stars and collapsed onto the bed. His found him unconscious. He was brought in by ambulance. I have discussed the case with the ER physician. We are going to admit the patient for consultation with his oncologist and we will have Cardiology look at him as well. PAST MEDICAL HISTORY: CAD, the above-mentioned cancers (prostate, bladder and lung and mets to liver), COPD, GERD, hyperlipidemia, hypertension, bladder resection and they apparently rebuilt a bladder out of colon, cervical fusion. ALLERGIES: SULFA and DOXY. FAMILY HISTORY: Diabetes. SOCIAL HISTORY: Does not drink, smoke or take drugs. He is retired from the . MEDICATIONS: Reviewed. REVIEW OF SYSTEMS: GENERAL: No history of weight change, weakness or fevers. SKIN: No bruising, hair changes or rashes. EYES: No blurred, double or loss of vision. NOSE AND THROAT: No history of nosebleeds, hoarseness or sore throat. HEART: No history of palpitations, chest pain or shortness of breath on exertion. LUNGS: Denies cough, hemoptysis, wheezing or shortness of breath. GASTROINTESTINAL: Denies changes in appetite, nausea, vomiting, diarrhea or constipation. GENITOURINARY: No history of frequency, urgency, hesitancy or nocturia. NEUROLOGIC: Denies history of numbness, tingling, tremor or weakness. PSYCHIATRIC: No history of panic, anxiety or depression. ENDOCRINE: No history of heat or cold intolerance, polyuria or polydipsia. EXTREMITIES: Denies muscle weakness, joint pain, pain on walking or stiffness. PHYSICAL EXAMINATION: VITAL SIGNS: Temperature afebrile, pulse 67, respirations 20, blood pressure 113/94. GENERAL: He is alert, cooperative. HEART: Normal S1, S2. LUNGS: Clear. ABDOMEN: Soft. EXTREMITIES: No edema. SKIN: No rashes. PSYCHIATRIC: He is a little flat but stable. ENDOCRINE: No thyromegaly. LYMPHATICS: No cervical nodes. HEMATOPOIETIC: No bruising. LABORATORY DATA: White count 11, hemoglobin 12, platelets 168. Electrolytes are normal other than BUN of 31 and creatinine 1.5. INR 1. CT of the head, no acute changes. He does have some nonspecific white matter changes secondary to small vessel disease and prominent ventricles which are probably age related. ASSESSMENT AND PLAN: Resolving syncope, suspect possible arrhythmia. The patient has been admitted. We will consult Cardiology, also consult Heme/Onc. Continue his home meds, PT, OT, frequent labs, IV hydration, cardiac monitoring. PROGNOSIS: Guarded. DELMY MONTEMAYOR DO DR: MIGUEL/romana JOB#: [id number] / [id number]
[2016-12-20] MEDS ORDERED: hydrALAZINE 20 MG/ML VIAL. IVP PRN (11:30)
[2016-12-20] MEDS ORDERED: IV 1/2 NORMAL SALINE 1,000 ML IV ONE (11:30)
[2016-12-20] MEDS ORDERED: ALBUTEROL SULFATE 2.5 MG/3 ML NEBU. NEB SCH (12:00)
[2016-12-20] MEDS: PSYLLIUM HUSK (SUGAR FREE) 1 PKT PACKET PO SCH (12:08)
[2016-12-20] MEDS: CHOLECALCIFEROL (VITAMIN D3) 1,000 UNIT TABLET PO SCH (12:10)
[2016-12-20] MEDS: CALCIUM CARBONATE 500 MG TAB.CHEW PO SCH (12:10)
[2016-12-20] MEDS: PANTOPRAZOLE 40 MG TABLET.DR. PO SCH (12:11)
[2016-12-20] MEDS: ASPIRIN CHEWABLE 81 MG TABLET. PO SCH (12:11)
[2016-12-20] MEDS: METOPROLOL SUCC 24HR ER 25 MG TAB.ER.24H. PO SCH (12:14)
[2016-12-20] MEDS: BRIMONIDINE 0.2% OPHTH SOLUTION 5ML BOTTLE. OU SCH ×2 (12:16→19:53)
[2016-12-20] MEDS: CLOTRIMAZOLE/BETAMETH 1%-0.05% TOPICAL CREAM 15GM TUBE. TP SCH ×2 (12:18→19:53)
--- NOTE | 2016-12-20 12:52 | PDOC2 ---
CONSULT Date of Consult Date of Consult DATE: 12/20/16 TIME: 12:47 Reason for Consult Reason for Consult: DIAMOND Referring Physician Referring Physician: JULIÁNUSCSheyla Identification/Chief Complaint Chief Complaint SYNCOPE Problems: Source Source: Chart review, Patient History of Present Illness Reason for Visit: THIS IS AN 81 YR OLD ADMITTED WITH SYNCOPE. UNDERGOING EVAL FOR THIS. CR IS 1.5. NO CKD NOTED. HX PERTINENT FOR STAGE 4 LUNG CA. LAST CHEMO WAS ON 12-10 OF THIS MONTH. NO AN ARB AND IBUPROFEN. HAS SOME SYMPTOMS OF PROSTATISM BUT ABLE TO EMPTY HIS BLADDER WELL. NO HX OF ANY KIDNEY OR BLADDER SURGERIES HEMATURIA DYSURIA NOTED. OCC FREQUENCY AND NOCTURIA TWICE NOTED Past Medical History Cardiovascular: CAD, HTN, Mitral valve stenosis Pulmonary: COPD CENTRAL NERVOUS SYSTEM: Other (No pertinent history) GI: GERD Heme/Onc: Anemia NOS, Cancer (stage 4 lung CA) Hepatobiliary: No pertinent hx Psych: No pertinent hx Musculoskeletal: Osteoarthritis Rheumatologic: No pertinent hx Infectious disease: No pertinent hx ENT: No pertinent hx Renal/: Prostate Ca. Endocrine: No pertinent hx Dermatology: No pertinent hx Past Surgical History Past Surgical History: Hernia Repair, Other Family History Family History: Coronary Artery Disease Social History Quit ALCOHOL: none Drugs: None Lives: with Family Current Problem List Problem List Problems Medical Problems: (1) Syncope Status: Acute Current Medications Current Medications Current Medications Iohexol (Omnipaque 300 Mg/ml) 75 ml 1X ONCE IV Last administered on 12/20/16t 01:49; Start 12/20/16 at 02:00; Stop 12/20/16 at 02:01; Status DC Info (Do NOT chart on this entry -- for MONITORING) 1 each PRN DAILY PRN MC SEE COMMENTS; Start 12/20/16 at 01:45; Stop 12/22/16 at 01:44 Ondansetron HCl (Zofran) 4 mg PRN Q8HRS PRN IV NAUSEA/VOMITING; Start 12/20/16 at 04:30; Stop 12/21/16 at 04:29 Acetaminophen (Tylenol) 650 mg PRN Q4HRS PRN PO FEVER; Start 12/20/16 at 04:30 ; Stop 12/21/16 at 04:29; Status Cancel Acetaminophen (Tylenol) 650 mg PRN Q4HRS PRN PO PAIN; Start 12/20/16 at 09:30 Aspirin (Children'S Aspirin) 81 mg DAILY PO Last administered on 12/20/16 12: 11; Start 12/20/16 at 10:00 Calcium Carbonate/ Glycine (Tums) 200 mg DAILY PO Last administered on 12:10; Start 12/20/16 at 10:00 Vitamin D (Vitamin D3) 1,000 unit DAILY PO Last administered on 12/20/16 12:10 ; Start 12/20/16 at 10:00 Betamethasone/ Clotrimazole (Lotrisone) 1 abel BID TP Last administered on 12:18; Start 12/20/16 at 10:00 Latanoprost (Xalatan) 1 drop HS OU ; Start 12/20/16 at 21:00 Losartan Potassium (Cozaar) 50 mg DAILY PO ; Start 12/20/16 at 10:00; Stop 12/20 at 11:27; Status DC Brimonidine Tartrate (Alphagan) 1 drop BID OU Last administered on 12/20/16 12 :16; Start 12/20/16 at 10:00 Non-Formulary Medication 10.2 gm DAILY IH ; Start 12/21/16 at 09:00; Status UNV Non-Formulary Medication 1 each DAILY PO ; Start 12/21/16 at 09:00; Status UNV Ibuprofen (Motrin) 800 mg PRN Q6HRS PRN PO INFLAMMATION; Start 12/20/16 at 10: 00 Naproxen (Naprosyn) 250 mg PRN BID PRN PO PAIN; Start 12/20/16 at 10:00 Psyllium Hydrophilic Mucilloid (Metamucil Fiber Packet) 1 pkt DAILY PO Last administered on 12/20/16 12:08; Start 12/20/16 at 10:00 Multi-Ingredient Mouthwash/Gargle (Magic Mouthwash) 10 ml PRN TID PRN PO MOUTH PAIN PER PROTOCOL; Start 12/20/16 at 10:00 Albuterol Sulfate (Ventolin Neb Soln) 2.5 mg Q6H NEB ; Start 12/20/16 at 12:00 Budesonide (Pulmicort) 0.5 mg RTBID NEB ; Start 12/20/16 at 20:00 Sodium Chloride 1,000 ml @ 100 mls/hr 1X ONCE IV Last administered on 12:21; Start 12/20/16 at 11:30; Stop 12/20/16 at 21:29 Hydralazine HCl (Apresoline) 10 mg PRN Q4HRS PRN IVP ELEVATED BP, SEE COMMENTS ; Start 12/20/16 at 11:30 Atorvastatin Calcium (Lipitor) 10 mg QHS PO ; Start 12/20/16 at 21:00 Metoprolol Succinate (Toprol Xl) 25 mg DAILY PO Last administered on 12/20/16 12:14; Start 12/20/16 at 12:00 Pantoprazole Sodium (Protonix) 40 mg DAILYAC PO Last administered on 12/20/16 12:11; Start 12/20/16 at 11:45 Active Scripts Active Reported Prevident 5000 (Sodium Fluoride) 100 Ml Gel..ml. 100 Ml DT Ibuprofen 800 Mg Tablet 800 Mg PO PRN Q6HRS PRN [Magic Mouthwash] 10 Ml TID PRN Cod Liver Oil 1 Each Capsule 1 Each PO DAILY Lotrisone Cream (Clotrimazole/Betamethasone Dip) 15 Gm Cream..g. 1 Abel TP BID Vitamin D3 (Cholecalciferol (Vitamin D3)) 1,000 Unit Tablet 1 Tab PO DAILY Tums (Calcium Carbonate) 200 Mg Tab.chew 200 Mg PO Benefiber (Wheat Dextrin) 1 Each Powd.pack 1 Each PO DAILY Aleve (Naproxen Sodium) 220 Mg Capsule 220 Mg PO BID PRN Symbicort 160-4.5 Mcg Inhaler (Budesonide/Formoterol Fumarate) 10.2 Gm Hfa.aer.ad 10.2 Gm IH DAILY Tylenol (Acetaminophen) 325 Mg Tablet 650 Mg PO Q4HRS PRN Aspirin 81 Mg Tab.chew 81 Mg PO DAILY Latanoprost 2.5 Ml Drops 1 Drop EACHEYE HS Losartan Potassium 50 Mg Tablet 50 Mg PO DAILY Alphagan P (Brimonidine Tartrate) 5 Ml Drops 1 Drop EACHEYE BID Allergies Allergies: Coded Allergies: Sulfa (Sulfonamide Antibiotics) (Verified Allergy, Intermediate, 06/29/14) doxycycline (Verified Allergy, Intermediate, 03/20/16) ROS General: YES: Fatigue, Appetite PSYCHOLOGICAL ROS: YES: Anxiety Eyes: Yes Decreased vision HEENT: YES: Heacaches Respiratory: YES: Cough Gastrointestinal: Yes Diarrhea Genitourinary: YES Frequency, YES Other (NOCTURIA) Musculoskeletal: Yes Muscular Weakness Neurological: Yes Weakness Skin: Yes Dry Skin Physical Exam General: Alert, Oriented X3, Cooperative, No acute distress HEENT: Atraumatic, PERRLA, EOMI, Mucous membr. moist/pink Lungs: Clear to auscultation, Normal air movement Heart: Regular rate Abdomen: Normal bowel sounds, Soft, No tenderness Extremities: No clubbing Skin: No breakdown Neuro: Normal speech, Cranial nerves 3-12 NL Psych/Mental Status: Mental status NL, Mood NL MUSCULOSKELETAL: No deformity, No swelling Vitals VITALS Vital Signs Date Time Temp Pulse Resp B/P (MAP) Pulse Ox O2 Delivery O2 Flow Rate FiO2 12/20/16 12:14 73 139/71 12/20/16 11:12 98.6 18 95 Room Air 98.6 Labs Labs Laboratory Tests Test 12/20/16 01:08 White Blood Count 11.4 x10^3/uL (4.0-11.0) Red Blood Count 4.26 x10^6/uL (4.30-5.70) Hemoglobin 12.7 g/dL (13.0-17.5) Hematocrit 38.9 % (39.0-53.0) Mean Corpuscular Volume 91 fL (79-100) Mean Corpuscular Hemoglobin 30 pg (25-35) Mean Corpuscular Hemoglobin Concent 33 g/dL (31-37) Red Cell Distribution Width 13.5 % (11.5-14.5) Platelet Count 168 x10^3/uL (140-400) Neutrophils (%) (Auto) 78 % (31-73) Lymphocytes (%) (Auto) 8 % (24-48) Monocytes (%) (Auto) 13 % (0-9) Eosinophils (%) (Auto) 1 % (0-3) Basophils (%) (Auto) 0 % (0-3) Neutrophils # (Auto) 8.8 x10^3uL (1.8-7.7) Lymphocytes # (Auto) 0.9 x10^3/uL (1.0-4.8) Monocytes # (Auto) 1.5 x10^3/uL (0.0-1.1) Eosinophils # (Auto) 0.1 x10^3/uL (0.0-0.7) Basophils # (Auto) 0.0 x10^3/uL (0.0-0.2) Prothrombin Time 12.7 SEC (11.7-14.0) Prothromb Time International Ratio 1.0 (0.8-1.1) Activated Partial Thromboplast Time 30 SEC (24-38) Sodium Level 144 mmol/L (136-145) Potassium Level 3.8 mmol/L (3.5-5.1) Chloride Level 107 mmol/L (98-107) Carbon Dioxide Level 28 mmol/L (21-32) Anion Gap 9 (6-14) Blood Urea Nitrogen 31 mg/dL (8-26) Creatinine 1.5 mg/dL (0.7-1.3) Estimated GFR (Cockcroft-Gault) 54.1 BUN/Creatinine Ratio 21 (6-20) Glucose Level 105 mg/dL (70-99) Calcium Level 9.4 mg/dL (8.5-10.1) Total Bilirubin 1.2 mg/dL (0.2-1.0) Aspartate Amino Transf (AST/SGOT) 31 U/L (15-37) Alanine Aminotransferase (ALT/SGPT) 32 U/L (16-63) Alkaline Phosphatase 67 U/L (46-116) Troponin I Quantitative < 0.017 ng/mL (0.000-0.055) WI-Mdx-U-Type Natriuretic Peptide 93 pg/mL (0-449) Total Protein 7.3 g/dL (6.4-8.2) Albumin 3.9 g/dL (3.4-5.0) Albumin/Globulin Ratio 1.1 (1.0-1.7) Laboratory Tests Test 12/20/16 01:08 White Blood Count 11.4 x10^3/uL (4.0-11.0) Red Blood Count 4.26 x10^6/uL (4.30-5.70) Hemoglobin 12.7 g/dL (13.0-17.5) Hematocrit 38.9 % (39.0-53.0) Mean Corpuscular Volume 91 fL (79-100) Mean Corpuscular Hemoglobin 30 pg (25-35) Mean Corpuscular Hemoglobin Concent 33 g/dL (31-37) Red Cell Distribution Width 13.5 % (11.5-14.5) Platelet Count 168 x10^3/uL (140-400) Neutrophils (%) (Auto) 78 % (31-73) Lymphocytes (%) (Auto) 8 % (24-48) Monocytes (%) (Auto) 13 % (0-9) Eosinophils (%) (Auto) 1 % (0-3) Basophils (%) (Auto) 0 % (0-3) Neutrophils # (Auto) 8.8 x10^3uL (1.8-7.7) Lymphocytes # (Auto) 0.9 x10^3/uL (1.0-4.8) Monocytes # (Auto) 1.5 x10^3/uL (0.0-1.1) Eosinophils # (Auto) 0.1 x10^3/uL (0.0-0.7) Basophils # (Auto) 0.0 x10^3/uL (0.0-0.2) Prothrombin Time 12.7 SEC (11.7-14.0) Prothromb Time International Ratio 1.0 (0.8-1.1) Activated Partial Thromboplast Time 30 SEC (24-38) Sodium Level 144 mmol/L (136-145) Potassium Level 3.8 mmol/L (3.5-5.1) Chloride Level 107 mmol/L (98-107) Carbon Dioxide Level 28 mmol/L (21-32) Anion Gap 9 (6-14) Blood Urea Nitrogen 31 mg/dL (8-26) Creatinine 1.5 mg/dL (0.7-1.3) Estimated GFR (Cockcroft-Gault) 54.1 BUN/Creatinine Ratio 21 (6-20) Glucose Level 105 mg/dL (70-99) Calcium Level 9.4 mg/dL (8.5-10.1) Total Bilirubin 1.2 mg/dL (0.2-1.0) Aspartate Amino Transf (AST/SGOT) 31 U/L (15-37) Alanine Aminotransferase (ALT/SGPT) 32 U/L (16-63) Alkaline Phosphatase 67 U/L (46-116) Troponin I Quantitative < 0.017 ng/mL (0.000-0.055) IT-Mnz-I-Type Natriuretic Peptide 93 pg/mL (0-449) Total Protein 7.3 g/dL (6.4-8.2) Albumin 3.9 g/dL (3.4-5.0) Albumin/Globulin Ratio 1.1 (1.0-1.7) Assessment/Plan Assessment/Plan IMP DIAMOND WITH CR OF 1.5 MILD DEHYDRATION DIARRHEA THIS AM STAGE 4 LUNG CA S/P CHEMO - LAST ON 12-10-2016 PLAN IVF'S STOP HIS IBUPROFEN HOLD HIS [facility] LABS IN AM CT NEG FOR HYDRONEPHROSIS KATIA DELACRUZ MD Dec 20, 2016 12:52
--- NOTE | 2016-12-20 14:15 | RAD ---
MRI Brain without contrast History: Dizziness, weakness, lung cancer Technique: Multiplanar, multisequential noncontrast MR imaging was performed of the brain. Contrast: None Comparison: April 10, 2016 Findings: There is no evidence of recent infarct or cytotoxic edema. There is again mild supratentorial atrophy.There is no significant midline shift, intra-axial mass effect, or focal abnormal extra-axial fluid collection. Scattered minimal T2 and FLAIR hyperintense signal abnormality of the supratentorial white matter is stable, also small focus of the left erika. There is no significant hemosiderin deposition of the brain parenchyma. There is preservation of the major intracranial flow-voids at the skull base. The mastoid air cells are aerated. The cerebellar tonsils are normal in location. There is no significant abnormality of the pineal gland or small pituitary gland. There has been lens surgery on the right. There is patchy minimal ethmoid air cell mucosal thickening. There is again probable small complex mucous retention cyst of the left maxillary sinus. There is again complex mucous retention cyst or polyp of the right sphenoid sinus, resolved on the left in the interval. There is preserved marrow signal of the clivus. Impression: 1. There is no evidence of recent infarct or intracranial mass effect. There is again mild supratentorial atrophy. Minimal T2 and FLAIR hyperintense abnormality of the supratentorial white matter is stable, likely due to chronic microvascular ischemic disease. Electronically signed by: Amilcar Loza MD (12/20/2016 2:11 PM) [id number]
--- NOTE | 2016-12-20 15:21 | PDOC2 ---
NEUROLOGY CONSULT Date of Admission Date of Admission DATE: 12/20/16 TIME: 15:09 Reason for Consult Reason for Consult: IMPRESSION: Syncope. Dizziness. Blurred vision. Collapse Lung cancer, stage IV. CAD HTN HLD COPD Renal failure. No evidence of acute CVA this time. RECOMMENDATIONS/PLAN: Brain MRI, performed. Lab: see orders. Treat medical and oncological diseases. OT/PT. Brain MRI: No evidence of acute CVA. HISTORY OF THE PRESENT ILLNESS: This is an 81-y-old male patient with above medical diseases had an episode of collapse and fall and LOC. He also had dizziness and blurred vision but were resolved then. No motor or sensory deficits. He was brought to the ER of [facility] for further evaluation. He has Hx of lung cancer that was diagnosed in 12/2015 and was treated. Liver also had lesions. PAST MEDICAL HISTORY Cardiovascular: CAD, HTN, Mitral valve stenosis Pulmonary: COPD CENTRAL NERVOUS SYSTEM: Other (No pertinent history) GI: GERD Heme/Onc: Anemia NOS, Cancer (stage 4 lung CA) Hepatobiliary: No pertinent hx Psych: No pertinent hx Musculoskeletal: Osteoarthritis Rheumatologic: No pertinent hx Infectious disease: No pertinent hx ENT: No pertinent hx Renal/: Prostate Ca. Endocrine: No pertinent hx Dermatology: No pertinent hx PAST SURGICAL HISTORY Past Surgical History Hernia Repair, Other (PCI/stent placement, prostatectomy ) FAMILY HISTORY Coronary Artery Disease SOCIAL HISTORY Smoke: Quit in 1994. ALCOHOL: none Drugs: None Lives: with Family ALLERGY: Reviewed. MEDICATIONS: Refer to [facility] REVIEW OF SYSTEMS: Constitutional: No malnutrition,or cachexia. Head: No recent traumatic brain or head injury. Skin: No edema, or rash. Ear: No infection. Eyes: No vision loss or color blindness. Nose: No bleeding or purulent discharges. Hearing: No hearing decrease. Neck: No recent injury.. Cardiac: CAD, HTN, HLD. Pulmonary: COPD, lung cancer. GI: No GI ulcer, GI bleeding. Urinary/genital: UTI. Endocrinologic: No cousin face, craniofacial dysmorphism, polydactyly. Skeletomuscular: Generalized weakness. Neurological: see HP. Psychiatric: Denies drug use/abuse. Otherwise, not [id number] review of systems. PHYSICAL EXAMINATION: General appearance is in chronic distress. HEENT: Normocephalic and nontraumatic. Eyes, nose, ears, and throat are unremarkable. Neck is supple. No lymphadenopathy. No bruits are heard over the carotid artery. No crepitus. Cardiovascular: S1, S2, regular rate and rhythm. Pulmonary: Clear to auscultation bilaterally. Abdomen: Bowel sounds are positive. Abdomen is soft, nontender, and nondistended. Extremities: No rash, lesions, or edema. No restriction of range of motion NEUROLOGICAL EXAMINATION: Alert Oriented to time, place and person. PERRL. EOMI. CN: no focal findings. Muscle tone: within normal. Muscle strength: 5- DTR: 2 UE, 2- knee. Plantar reflex: Flexor response bilaterally Gait: not examined in chair. Sensory exam: no abnormal findings. No cerebellar signs elicited. F-T-N test fine. Current Medications Current Medications Current Medications Iohexol (Omnipaque 300 Mg/ml) 75 ml 1X ONCE IV Last administered on 12/20/16 01:49; Start 12/20/16 at 02:00; Stop 12/20/16 at 02:01; Status DC Info (Do NOT chart on this entry -- for MONITORING) 1 each PRN DAILY PRN MC SEE COMMENTS; Start 12/20/16 at 01:45; Stop 12/22/16 at 01:44 Ondansetron HCl (Zofran) 4 mg PRN Q8HRS PRN IV NAUSEA/VOMITING; Start 12/20/16 at 04:30; Stop 12/21/16 at 04:29 Acetaminophen (Tylenol) 650 mg PRN Q4HRS PRN PO FEVER; Start 12/20/16 at 04:30 ; Stop 12/21/16 at 04:29; Status Cancel Acetaminophen (Tylenol) 650 mg PRN Q4HRS PRN PO PAIN; Start 12/20/16 at 09:30 Aspirin (Children'S Aspirin) 81 mg DAILY PO Last administered on 12/20/16 12: 11; Start 12/20/16 at 10:00 Calcium Carbonate/ Glycine (Tums) 200 mg DAILY PO Last administered on 12:10; Start 12/20/16 at 10:00 Vitamin D (Vitamin D3) 1,000 unit DAILY PO Last administered on 12/20/16 12:10 ; Start 12/20/16 at 10:00 Betamethasone/ Clotrimazole (Lotrisone) 1 abel BID TP Last administered on 12:18; Start 12/20/16 at 10:00 Latanoprost (Xalatan) 1 drop HS OU ; Start 12/20/16 at 21:00 Losartan Potassium (Cozaar) 50 mg DAILY PO ; Start 12/20/16 at 10:00; Stop 12/20 at 11:27; Status DC Brimonidine Tartrate (Alphagan) 1 drop BID OU Last administered on 12/20/16 12 :16; Start 12/20/16 at 10:00 Non-Formulary Medication 10.2 gm DAILY IH ; Start 12/21/16 at 09:00; Status UNV Non-Formulary Medication 1 each DAILY PO ; Start 12/21/16 at 09:00; Status UNV Ibuprofen (Motrin) 800 mg PRN Q6HRS PRN PO INFLAMMATION; Start 12/20/16 at 10: 00; Stop 12/20/16 at 12:54; Status DC Naproxen (Naprosyn) 250 mg PRN BID PRN PO PAIN; Start 12/20/16 at 10:00 Psyllium Hydrophilic Mucilloid (Metamucil Fiber Packet) 1 pkt DAILY PO Last administered on 12/20/16 12:08; Start 12/20/16 at 10:00 Multi-Ingredient Mouthwash/Gargle (Magic Mouthwash) 10 ml PRN TID PRN PO MOUTH PAIN PER PROTOCOL; Start 12/20/16 at 10:00 Albuterol Sulfate (Ventolin Neb Soln) 2.5 mg Q6H NEB ; Start 12/20/16 at 12:00 Budesonide (Pulmicort) 0.5 mg RTBID NEB ; Start 12/20/16 at 20:00 Sodium Chloride 1,000 ml @ 100 mls/hr 1X ONCE IV Last administered on 12:21; Start 12/20/16 at 11:30; Stop 12/20/16 at 21:29 Hydralazine HCl (Apresoline) 10 mg PRN Q4HRS PRN IVP ELEVATED BP, SEE COMMENTS ; Start 12/20/16 at 11:30 Atorvastatin Calcium (Lipitor) 10 mg QHS PO ; Start 12/20/16 at 21:00 Metoprolol Succinate (Toprol Xl) 25 mg DAILY PO Last administered on 12/20/16 12:14; Start 12/20/16 at 12:00 Pantoprazole Sodium (Protonix) 40 mg DAILYAC PO Last administered on 12/20/16 12:11; Start 12/20/16 at 11:45 Sodium Chloride 1,000 ml @ 75 mls/hr [id number] IV ; Start 12/20/16 at 13:00 Active Scripts Active Reported Prevident 5000 (Sodium Fluoride) 100 Ml Gel..ml. 100 Ml DT Ibuprofen 800 Mg Tablet 800 Mg PO PRN Q6HRS PRN [Magic Mouthwash] 10 Ml TID PRN Cod Liver Oil 1 Each Capsule 1 Each PO DAILY Lotrisone Cream (Clotrimazole/Betamethasone Dip) 15 Gm Cream..g. 1 Abel TP BID Vitamin D3 (Cholecalciferol (Vitamin D3)) 1,000 Unit Tablet 1 Tab PO DAILY Tums (Calcium Carbonate) 200 Mg Tab.chew 200 Mg PO Benefiber (Wheat Dextrin) 1 Each Powd.pack 1 Each PO DAILY Aleve (Naproxen Sodium) 220 Mg Capsule 220 Mg PO BID PRN Symbicort 160-4.5 Mcg Inhaler (Budesonide/Formoterol Fumarate) 10.2 Gm Hfa.aer.ad 10.2 Gm IH DAILY Tylenol (Acetaminophen) 325 Mg Tablet 650 Mg PO Q4HRS PRN Aspirin 81 Mg Tab.chew 81 Mg PO DAILY Latanoprost 2.5 Ml Drops 1 Drop EACHEYE HS Losartan Potassium 50 Mg Tablet 50 Mg PO DAILY Alphagan P (Brimonidine Tartrate) 5 Ml Drops 1 Drop EACHEYE BID Allergies Allergies: Coded Allergies: Sulfa (Sulfonamide Antibiotics) (Verified Allergy, Intermediate, 06/29/14) doxycycline (Verified Allergy, Intermediate, 03/20/16) Vitals VITALS Vital Signs Date Time Temp Pulse Resp B/P (MAP) Pulse Ox O2 Delivery O2 Flow Rate FiO2 12/20/16 14:41 98.6 74 19 140/78 (98) 97 Room Air 98.6 Labs Labs Laboratory Tests Test 12/20/16 01:08 White Blood Count 11.4 x10^3/uL (4.0-11.0) Red Blood Count 4.26 x10^6/uL (4.30-5.70) Hemoglobin 12.7 g/dL (13.0-17.5) Hematocrit 38.9 % (39.0-53.0) Mean Corpuscular Volume 91 fL (79-100) Mean Corpuscular Hemoglobin 30 pg (25-35) Mean Corpuscular Hemoglobin Concent 33 g/dL (31-37) Red Cell Distribution Width 13.5 % (11.5-14.5) Platelet Count 168 x10^3/uL (140-400) Neutrophils (%) (Auto) 78 % (31-73) Lymphocytes (%) (Auto) 8 % (24-48) Monocytes (%) (Auto) 13 % (0-9) Eosinophils (%) (Auto) 1 % (0-3) Basophils (%) (Auto) 0 % (0-3) Neutrophils # (Auto) 8.8 x10^3uL (1.8-7.7) Lymphocytes # (Auto) 0.9 x10^3/uL (1.0-4.8) Monocytes # (Auto) 1.5 x10^3/uL (0.0-1.1) Eosinophils # (Auto) 0.1 x10^3/uL (0.0-0.7) Basophils # (Auto) 0.0 x10^3/uL (0.0-0.2) Prothrombin Time 12.7 SEC (11.7-14.0) Prothromb Time International Ratio 1.0 (0.8-1.1) Activated Partial Thromboplast Time 30 SEC (24-38) Sodium Level 144 mmol/L (136-145) Potassium Level 3.8 mmol/L (3.5-5.1) Chloride Level 107 mmol/L (98-107) Carbon Dioxide Level 28 mmol/L (21-32) Anion Gap 9 (6-14) Blood Urea Nitrogen 31 mg/dL (8-26) Creatinine 1.5 mg/dL (0.7-1.3) Estimated GFR (Cockcroft-Gault) 54.1 BUN/Creatinine Ratio 21 (6-20) Glucose Level 105 mg/dL (70-99) Calcium Level 9.4 mg/dL (8.5-10.1) Total Bilirubin 1.2 mg/dL (0.2-1.0) Aspartate Amino Transf (AST/SGOT) 31 U/L (15-37) Alanine Aminotransferase (ALT/SGPT) 32 U/L (16-63) Alkaline Phosphatase 67 U/L (46-116) Troponin I Quantitative < 0.017 ng/mL (0.000-0.055) IC-Mho-O-Type Natriuretic Peptide 93 pg/mL (0-449) Total Protein 7.3 g/dL (6.4-8.2) Albumin 3.9 g/dL (3.4-5.0) Albumin/Globulin Ratio 1.1 (1.0-1.7) Laboratory Tests Test 12/20/16 01:08 White Blood Count 11.4 x10^3/uL (4.0-11.0) Red Blood Count 4.26 x10^6/uL (4.30-5.70) Hemoglobin 12.7 g/dL (13.0-17.5) Hematocrit 38.9 % (39.0-53.0) Mean Corpuscular Volume 91 fL (79-100) Mean Corpuscular Hemoglobin 30 pg (25-35) Mean Corpuscular Hemoglobin Concent 33 g/dL (31-37) Red Cell Distribution Width 13.5 % (11.5-14.5) Platelet Count 168 x10^3/uL (140-400) Neutrophils (%) (Auto) 78 % (31-73) Lymphocytes (%) (Auto) 8 % (24-48) Monocytes (%) (Auto) 13 % (0-9) Eosinophils (%) (Auto) 1 % (0-3) Basophils (%) (Auto) 0 % (0-3) Neutrophils # (Auto) 8.8 x10^3uL (1.8-7.7) Lymphocytes # (Auto) 0.9 x10^3/uL (1.0-4.8) Monocytes # (Auto) 1.5 x10^3/uL (0.0-1.1) Eosinophils # (Auto) 0.1 x10^3/uL (0.0-0.7) Basophils # (Auto) 0.0 x10^3/uL (0.0-0.2) Prothrombin Time 12.7 SEC (11.7-14.0) Prothromb Time International Ratio 1.0 (0.8-1.1) Activated Partial Thromboplast Time 30 SEC (24-38) Sodium Level 144 mmol/L (136-145) Potassium Level 3.8 mmol/L (3.5-5.1) Chloride Level 107 mmol/L (98-107) Carbon Dioxide Level 28 mmol/L (21-32) Anion Gap 9 (6-14) Blood Urea Nitrogen 31 mg/dL (8-26) Creatinine 1.5 mg/dL (0.7-1.3) Estimated GFR (Cockcroft-Gault) 54.1 BUN/Creatinine Ratio 21 (6-20) Glucose Level 105 mg/dL (70-99) Calcium Level 9.4 mg/dL (8.5-10.1) Total Bilirubin 1.2 mg/dL (0.2-1.0) Aspartate Amino Transf (AST/SGOT) 31 U/L (15-37) Alanine Aminotransferase (ALT/SGPT) 32 U/L (16-63) Alkaline Phosphatase 67 U/L (46-116) Troponin I Quantitative < 0.017 ng/mL (0.000-0.055) LC-Tui-R-Type Natriuretic Peptide 93 pg/mL (0-449) Total Protein 7.3 g/dL (6.4-8.2) Albumin 3.9 g/dL (3.4-5.0) Albumin/Globulin Ratio 1.1 (1.0-1.7) ELAN SPANGLER MD Dec 20, 2016 15:21
--- NOTE | 2016-12-20 15:54 | PDOC2 ---
CONSULT Date of Consult Date of Consult DATE: 12/20/16 TIME: 15:46 Past Medical History Cardiovascular: CAD, HTN, Mitral valve stenosis Pulmonary: COPD CENTRAL NERVOUS SYSTEM: Other (No pertinent history) GI: GERD Heme/Onc: Anemia NOS, Cancer (stage 4 lung CA) Hepatobiliary: No pertinent hx Psych: No pertinent hx Musculoskeletal: Osteoarthritis Rheumatologic: No pertinent hx Infectious disease: No pertinent hx ENT: No pertinent hx Renal/: Prostate Ca. Endocrine: No pertinent hx Dermatology: No pertinent hx Past Surgical History Past Surgical History: Hernia Repair, Other Family History Family History: Coronary Artery Disease Social History Quit ALCOHOL: none Drugs: None Lives: with Family Current Problem List Problem List Problems Medical Problems: (1) Syncope Status: Acute Current Medications Current Medications Current Medications Iohexol (Omnipaque 300 Mg/ml) 75 ml 1X ONCE IV Last administered on 12/20/16 01:49; Start 12/20/16 at 02:00; Stop 12/20/16 at 02:01; Status DC Info (Do NOT chart on this entry -- for MONITORING) 1 each PRN DAILY PRN MC SEE COMMENTS; Start 12/20/16 at 01:45; Stop 12/22/16 at 01:44 Ondansetron HCl (Zofran) 4 mg PRN Q8HRS PRN IV NAUSEA/VOMITING; Start 12/20/16 at 04:30; Stop 12/21/16 at 04:29 Acetaminophen (Tylenol) 650 mg PRN Q4HRS PRN PO FEVER; Start 12/20/16 at 04:30 ; Stop 12/21/16 at 04:29; Status Cancel Acetaminophen (Tylenol) 650 mg PRN Q4HRS PRN PO PAIN; Start 12/20/16 at 09:30 Aspirin (Children'S Aspirin) 81 mg DAILY PO Last administered on 12/20/16 12: 11; Start 12/20/16 at 10:00 Calcium Carbonate/ Glycine (Tums) 200 mg DAILY PO Last administered on 12:10; Start 12/20/16 at 10:00 Vitamin D (Vitamin D3) 1,000 unit DAILY PO Last administered on 12/20/16 12:10 ; Start 12/20/16 at 10:00 Betamethasone/ Clotrimazole (Lotrisone) 1 abel BID TP Last administered on 12:18; Start 12/20/16 at 10:00 Latanoprost (Xalatan) 1 drop HS OU ; Start 12/20/16 at 21:00 Losartan Potassium (Cozaar) 50 mg DAILY PO ; Start 12/20/16 at 10:00; Stop 12/20 at 11:27; Status DC Brimonidine Tartrate (Alphagan) 1 drop BID OU Last administered on 12/20/16 12 :16; Start 12/20/16 at 10:00 Non-Formulary Medication 10.2 gm DAILY IH ; Start 12/21/16 at 09:00; Status UNV Non-Formulary Medication 1 each DAILY PO ; Start 12/21/16 at 09:00; Status UNV Ibuprofen (Motrin) 800 mg PRN Q6HRS PRN PO INFLAMMATION; Start 12/20/16 at 10: 00; Stop 12/20/16 at 12:54; Status DC Naproxen (Naprosyn) 250 mg PRN BID PRN PO PAIN; Start 12/20/16 at 10:00 Psyllium Hydrophilic Mucilloid (Metamucil Fiber Packet) 1 pkt DAILY PO Last administered on 12/20/16 12:08; Start 12/20/16 at 10:00 Multi-Ingredient Mouthwash/Gargle (Magic Mouthwash) 10 ml PRN TID PRN PO MOUTH PAIN PER PROTOCOL; Start 12/20/16 at 10:00 Albuterol Sulfate (Ventolin Neb Soln) 2.5 mg Q6H NEB ; Start 12/20/16 at 12:00 Budesonide (Pulmicort) 0.5 mg RTBID NEB ; Start 12/20/16 at 20:00 Sodium Chloride 1,000 ml @ 100 mls/hr 1X ONCE IV Last administered on 12:21; Start 12/20/16 at 11:30; Stop 12/20/16 at 21:29 Hydralazine HCl (Apresoline) 10 mg PRN Q4HRS PRN IVP ELEVATED BP, SEE COMMENTS ; Start 12/20/16 at 11:30 Atorvastatin Calcium (Lipitor) 10 mg QHS PO ; Start 12/20/16 at 21:00 Metoprolol Succinate (Toprol Xl) 25 mg DAILY PO Last administered on 12/20/16 12:14; Start 12/20/16 at 12:00 Pantoprazole Sodium (Protonix) 40 mg DAILYAC PO Last administered on 12/20/16 12:11; Start 12/20/16 at 11:45 Sodium Chloride 1,000 ml @ 75 mls/hr [id number] IV ; Start 12/20/16 at 13:00 Active Scripts Active Reported Prevident 5000 (Sodium Fluoride) 100 Ml Gel..ml. 100 Ml DT Ibuprofen 800 Mg Tablet 800 Mg PO PRN Q6HRS PRN [Magic Mouthwash] 10 Ml TID PRN Cod Liver Oil 1 Each Capsule 1 Each PO DAILY Lotrisone Cream (Clotrimazole/Betamethasone Dip) 15 Gm Cream..g. 1 Abel TP BID Vitamin D3 (Cholecalciferol (Vitamin D3)) 1,000 Unit Tablet 1 Tab PO DAILY Tums (Calcium Carbonate) 200 Mg Tab.chew 200 Mg PO Benefiber (Wheat Dextrin) 1 Each Powd.pack 1 Each PO DAILY Aleve (Naproxen Sodium) 220 Mg Capsule 220 Mg PO BID PRN Symbicort 160-4.5 Mcg Inhaler (Budesonide/Formoterol Fumarate) 10.2 Gm Hfa.aer.ad 10.2 Gm IH DAILY Tylenol (Acetaminophen) 325 Mg Tablet 650 Mg PO Q4HRS PRN Aspirin 81 Mg Tab.chew 81 Mg PO DAILY Latanoprost 2.5 Ml Drops 1 Drop EACHEYE HS Losartan Potassium 50 Mg Tablet 50 Mg PO DAILY Alphagan P (Brimonidine Tartrate) 5 Ml Drops 1 Drop EACHEYE BID Allergies Allergies: Coded Allergies: Sulfa (Sulfonamide Antibiotics) (Verified Allergy, Intermediate, 06/29/14) doxycycline (Verified Allergy, Intermediate, 03/20/16) Vitals VITALS Vital Signs Date Time Temp Pulse Resp B/P (MAP) Pulse Ox O2 Delivery O2 Flow Rate FiO2 12/20/16 14:41 98.6 74 19 140/78 (98) 97 Room Air 98.6 Labs Labs Laboratory Tests Test 12/20/16 01:08 White Blood Count 11.4 x10^3/uL (4.0-11.0) Red Blood Count 4.26 x10^6/uL (4.30-5.70) Hemoglobin 12.7 g/dL (13.0-17.5) Hematocrit 38.9 % (39.0-53.0) Mean Corpuscular Volume 91 fL (79-100) Mean Corpuscular Hemoglobin 30 pg (25-35) Mean Corpuscular Hemoglobin Concent 33 g/dL (31-37) Red Cell Distribution Width 13.5 % (11.5-14.5) Platelet Count 168 x10^3/uL (140-400) Neutrophils (%) (Auto) 78 % (31-73) Lymphocytes (%) (Auto) 8 % (24-48) Monocytes (%) (Auto) 13 % (0-9) Eosinophils (%) (Auto) 1 % (0-3) Basophils (%) (Auto) 0 % (0-3) Neutrophils # (Auto) 8.8 x10^3uL (1.8-7.7) Lymphocytes # (Auto) 0.9 x10^3/uL (1.0-4.8) Monocytes # (Auto) 1.5 x10^3/uL (0.0-1.1) Eosinophils # (Auto) 0.1 x10^3/uL (0.0-0.7) Basophils # (Auto) 0.0 x10^3/uL (0.0-0.2) Prothrombin Time 12.7 SEC (11.7-14.0) Prothromb Time International Ratio 1.0 (0.8-1.1) Activated Partial Thromboplast Time 30 SEC (24-38) Sodium Level 144 mmol/L (136-145) Potassium Level 3.8 mmol/L (3.5-5.1) Chloride Level 107 mmol/L (98-107) Carbon Dioxide Level 28 mmol/L (21-32) Anion Gap 9 (6-14) Blood Urea Nitrogen 31 mg/dL (8-26) Creatinine 1.5 mg/dL (0.7-1.3) Estimated GFR (Cockcroft-Gault) 54.1 BUN/Creatinine Ratio 21 (6-20) Glucose Level 105 mg/dL (70-99) Calcium Level 9.4 mg/dL (8.5-10.1) Total Bilirubin 1.2 mg/dL (0.2-1.0) Aspartate Amino Transf (AST/SGOT) 31 U/L (15-37) Alanine Aminotransferase (ALT/SGPT) 32 U/L (16-63) Alkaline Phosphatase 67 U/L (46-116) Troponin I Quantitative < 0.017 ng/mL (0.000-0.055) RW-Yab-G-Type Natriuretic Peptide 93 pg/mL (0-449) Total Protein 7.3 g/dL (6.4-8.2) Albumin 3.9 g/dL (3.4-5.0) Albumin/Globulin Ratio 1.1 (1.0-1.7) Laboratory Tests Test 12/20/16 01:08 White Blood Count 11.4 x10^3/uL (4.0-11.0) Red Blood Count 4.26 x10^6/uL (4.30-5.70) Hemoglobin 12.7 g/dL (13.0-17.5) Hematocrit 38.9 % (39.0-53.0) Mean Corpuscular Volume 91 fL (79-100) Mean Corpuscular Hemoglobin 30 pg (25-35) Mean Corpuscular Hemoglobin Concent 33 g/dL (31-37) Red Cell Distribution Width 13.5 % (11.5-14.5) Platelet Count 168 x10^3/uL (140-400) Neutrophils (%) (Auto) 78 % (31-73) Lymphocytes (%) (Auto) 8 % (24-48) Monocytes (%) (Auto) 13 % (0-9) Eosinophils (%) (Auto) 1 % (0-3) Basophils (%) (Auto) 0 % (0-3) Neutrophils # (Auto) 8.8 x10^3uL (1.8-7.7) Lymphocytes # (Auto) 0.9 x10^3/uL (1.0-4.8) Monocytes # (Auto) 1.5 x10^3/uL (0.0-1.1) Eosinophils # (Auto) 0.1 x10^3/uL (0.0-0.7) Basophils # (Auto) 0.0 x10^3/uL (0.0-0.2) Prothrombin Time 12.7 SEC (11.7-14.0) Prothromb Time International Ratio 1.0 (0.8-1.1) Activated Partial Thromboplast Time 30 SEC (24-38) Sodium Level 144 mmol/L (136-145) Potassium Level 3.8 mmol/L (3.5-5.1) Chloride Level 107 mmol/L (98-107) Carbon Dioxide Level 28 mmol/L (21-32) Anion Gap 9 (6-14) Blood Urea Nitrogen 31 mg/dL (8-26) Creatinine 1.5 mg/dL (0.7-1.3) Estimated GFR (Cockcroft-Gault) 54.1 BUN/Creatinine Ratio 21 (6-20) Glucose Level 105 mg/dL (70-99) Calcium Level 9.4 mg/dL (8.5-10.1) Total Bilirubin 1.2 mg/dL (0.2-1.0) Aspartate Amino Transf (AST/SGOT) 31 U/L (15-37) Alanine Aminotransferase (ALT/SGPT) 32 U/L (16-63) Alkaline Phosphatase 67 U/L (46-116) Troponin I Quantitative < 0.017 ng/mL (0.000-0.055) MI-Amy-D-Type Natriuretic Peptide 93 pg/mL (0-449) Total Protein 7.3 g/dL (6.4-8.2) Albumin 3.9 g/dL (3.4-5.0) Albumin/Globulin Ratio 1.1 (1.0-1.7) Assessment/Plan Assessment/Plan DATE OF CONSULTATION: 12/20/2016 REQUESTING PHYSICIAN: Dr. Mariam Lemus. REASON FOR CONSULTATION: Stage IV lung cancer, now presenting with syncope. HISTORY OF PRESENT ILLNESS: The patient is an 81-year-old -[place] gentleman who presented with hoarseness, dysphagia and dysphonia in September of 2015. He had an upper endoscopy and dilatation with no relief. He underwent a CT scan of the chest on 03/13/2016, which revealed a 4.2 cm mass in the left lower lobe of the lung. He also had evidence of a 3.4 cm right hepatic lobe mass suggestive of metastatic disease. He underwent a CT-guided biopsy of the left lung mass on 03/20/2016, which revealed poorly differentiated adenocarcinoma. PD-L1 was positive at 90% and hence he was started on palliative treatment with Keytruda on 04/23/2016. After 4 cycles of treatment, he had near resolution of the lung and liver lesions. He received cycle #12 of treatment on 12/10/2016. He was admitted to [facility] on 12/16/2016 with chest pain. Cardiology was consulted. Troponins were normal. He was thought to have atypical chest pain. CTA chest 12/17/16 was neg for PE. He was admitted 12/20/16 for syncope. Reports that he was sitting and looking at the computer when he felt blurry on his vision. He then decided to stand up and was by the bed and end up passing out and landing face first on the bed. He was standing and the next thing he noted upon waking up was he was on the bed with urinary incontinence, mild discomfort in his inner thighs and cramping sensation to his hands. He was also noted to be slightly confused. This was witnessed as the was in bed but could not certain the duration of unconsciousness. Prior to passing out he felt that he had to go to the restroom have a BM which he finally did after waking up after he passed out. Denies any tinnitus, facial tingling, MELVIN, unilateral weakness, facial droop, photopsia, or dysarthria. He does admit that he did not adequately hydrate himself and he took his BP meds. Reports that he has not passed out in the past and no seizures or arrhythmias in the past. Denies any CP, SOA, palpitations, or frequent dizziness. MRI brain 12/20/16 is neg for mets or CVA. PAST MEDICAL HISTORY: Prostate cancer and bladder cancer in 1994, status post cystectomy, COPD, arthritis, hypertension. SOCIAL HISTORY: He quit smoking in 1994. He has a [id number]-[id number] smoking history. FAMILY HISTORY: Negative for lung cancer. REVIEW OF SYSTEMS: A 14-point review of system was performed. Pertinent positives are mentioned in the history of present illness. Rest of the system review is negative. PHYSICAL EXAMINATION: GENERAL APPEARANCE: The patient is an 81-year-old -[place] gentleman who is well developed, well nourished, and in no acute cardiorespiratory distress. VITAL SIGNS: reviewed. HEAD: Atraumatic, normocephalic. EYES: No icterus. NECK: Supple. CHEST: Bilaterally symmetrical. HEART: S1, S2 normal. ABDOMEN: Soft, nontender. No hepatosplenomegaly. CENTRAL NERVOUS SYSTEM: No focal deficits. LYMPHATICS: No lymphadenopathy. SKIN: No rashes. PSYCHOLOGIC: Mood and affect are appropriate. MUSCULOSKELETAL: No joint effusions. LABORATORY DATA: WBC 11.4. hemoglobin 12.7, platelet count 168, creatinine 1.5 , IMPRESSION AND PLAN: 1. 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 EGFR and ALK mutation are negative. ROS1 mutation is also negative. PD-L1 is positive at 90%. He was started on immunotherapy with Keytruda on 04/23/2016 and he had near resolution of lung and liver lesions. He is tolerating the treatments very well. His most recent treatment was completed on 12/10/2016. I have advised him to continue to follow up with me upon discharge for continuation of immunotherapy. CTA chest 12/17/16 was neg for PE or recurrent malignancy. 2. Chest pain. resolved. 3. Syncopal episode - MRI brain 12/20/16 is neg for mets or CVA. Appreciate cardiology and neurology eval. 3. History of bladder and prostate cancer in 1994 with no evidence of recurrence. 4. Chronic obstructive pulmonary disease. Continue following up with Pulmonary Medicine. CARLEEN SANFORD MD Dec 20, 2016 15:54
[2016-12-20] MEDS: IV NORMAL SALINE 1000ML BAG 1,000 ML IV SCH (19:54)
[2016-12-20] MEDS ORDERED: BUDESONIDE 0.5 MG/2 ML NEBU. NEB SCH (20:00)
[2016-12-20] MEDS ORDERED: LATANOPROST 0.005% OPHTH SOLUTION 2.5ML BOTTLE. OU SCH (21:00)
[2016-12-20] MEDS ORDERED: ATORVASTATIN CALCIUM 10 MG TABLET. PO SCH (21:00)
[2016-12-21 03:25] VITALS: BP 122/69
[2016-12-21] MEDS: IV NORMAL SALINE 1000ML BAG 1,000 ML IV SCH (03:34)
[2016-12-21 05:06] LABS: CALCIUM 8.5 mg/dL (8.5-10.1); CREATININE 1.2 mg/dL (0.7-1.3); POTASSIUM 3.9 mmol/L (3.5-5.1)
[2016-12-21 07:00] VITALS: BP 137/64
[2016-12-21] MEDS: PANTOPRAZOLE 40 MG TABLET.DR. PO SCH ×2 (07:30→08:33)
[2016-12-21 07:31] LABS: BILIRUBIN,URINE NEGATIVE (NEG); GLUCOSE,URINE NEGATIVE (NEG); NITRITE,URINE NEGATIVE (NEG); PH,URINE 6.5; PROTEIN,URINE NEGATIVE (NEG-TRACE); UROBILINOGEN,URINE 0.2 mg/dL (0.2 mg/dL)
[2016-12-21 07:46] LABS: BACTERIA,URINE FEW /HPF (0-FEW); SQUAMOUS EPITHELIAL CELL,UR OCC /LPF
--- NOTE | 2016-12-21 08:02 | PDOC ---
PALLAVI TREVIÑO [employer]OL MANAGER 12/21/16 0802: PROGRESS NOTES Subjective Subjective "ready to go home", no chest pain, no lightheadedness, no palpitations Objective Objective tele - sinus rhythm, no significant arrhythmias Vital Signs Date Time Temp Pulse Resp B/P (MAP) Pulse Ox O2 Delivery O2 Flow Rate FiO2 12/21/16 03:25 97.5 66 16 122/69 (86) 96 Room Air 97.5 Physical Exam Abdomen: Normal bowel sounds, Soft, No tenderness Heart: Regular rate, Normal S1, Normal S2 Extremities: No cyanosis, No edema, Normal pulses General: Alert, Oriented X3, Cooperative, No acute distress Lungs: Clear to auscultation, Normal air movement Neuro: Normal speech, Strength at 5/5 X4 ext Psych/Mental Status: Mental status NL, Mood NL Assessment Assessment Problems Medical Problems: (1) Syncope Status: Acute 1. Syncope with nontraumatic fall: No arrhythmias on tele. No orthostasis. No reoccurrence. Outpatient event monitoring. 2. Prerenal azotemia: resolved with IVF 3. CAD: prior PCI/stent. Recent MPI unremarkable. Angina free. Continue medical therapy. 4. HTN: controlled on current Rx 5. HLP: controlled, on statin Comment Review of Relevant I have reviewed the following items joshua (where applicable) has been applied. Labs Laboratory Tests Test 12/20/16 01:08 12/21/16 03:25 12/21/16 06:30 White Blood Count 11.4 x10^3/uL (4.0-11.0) Red Blood Count 4.26 x10^6/uL (4.30-5.70) Hemoglobin 12.7 g/dL (13.0-17.5) Hematocrit 38.9 % (39.0-53.0) Mean Corpuscular Volume 91 fL (79-100) Mean Corpuscular Hemoglobin 30 pg (25-35) Mean Corpuscular Hemoglobin Concent 33 g/dL (31-37) Red Cell Distribution Width 13.5 % (11.5-14.5) Platelet Count 168 x10^3/uL (140-400) Neutrophils (%) (Auto) 78 % (31-73) Lymphocytes (%) (Auto) 8 % (24-48) Monocytes (%) (Auto) 13 % (0-9) Eosinophils (%) (Auto) 1 % (0-3) Basophils (%) (Auto) 0 % (0-3) Neutrophils # (Auto) 8.8 x10^3uL (1.8-7.7) Lymphocytes # (Auto) 0.9 x10^3/uL (1.0-4.8) Monocytes # (Auto) 1.5 x10^3/uL (0.0-1.1) Eosinophils # (Auto) 0.1 x10^3/uL (0.0-0.7) Basophils # (Auto) 0.0 x10^3/uL (0.0-0.2) Prothrombin Time 12.7 SEC (11.7-14.0) Prothromb Time International Ratio 1.0 (0.8-1.1) Activated Partial Thromboplast Time 30 SEC (24-38) Sodium Level 144 mmol/L (136-145) 142 mmol/L (136-145) Potassium Level 3.8 mmol/L (3.5-5.1) 3.9 mmol/L (3.5-5.1) Chloride Level 107 mmol/L (98-107) 108 mmol/L (98-107) Carbon Dioxide Level 28 mmol/L (21-32) 28 mmol/L (21-32) Anion Gap 9 (6-14) 6 (6-14) Blood Urea Nitrogen 31 mg/dL (8-26) 19 mg/dL (8-26) Creatinine 1.5 mg/dL (0.7-1.3) 1.2 mg/dL (0.7-1.3) Estimated GFR (Cockcroft-Gault) 54.1 70.0 BUN/Creatinine Ratio 21 (6-20) Glucose Level 105 mg/dL (70-99) 103 mg/dL (70-99) Calcium Level 9.4 mg/dL (8.5-10.1) 8.5 mg/dL (8.5-10.1) Total Bilirubin 1.2 mg/dL (0.2-1.0) Aspartate Amino Transf (AST/SGOT) 31 U/L (15-37) Alanine Aminotransferase (ALT/SGPT) 32 U/L (16-63) Alkaline Phosphatase 67 U/L (46-116) Troponin I Quantitative < 0.017 ng/mL (0.000-0.055) DC-Ifg-F-Type Natriuretic Peptide 93 pg/mL (0-449) Total Protein 7.3 g/dL (6.4-8.2) Albumin 3.9 g/dL (3.4-5.0) Albumin/Globulin Ratio 1.1 (1.0-1.7) Urine Collection Type Unknown Urine Color Yellow Urine Clarity Clear Urine pH 6.5 Urine Specific [place] 1.010 Urine Protein Negative mg/dL (NEG-TRACE) Urine Glucose (UA) Negative mg/dL (NEG) Urine Ketones (Stick) Negative mg/dL (NEG) Urine Blood Negative (NEG) Urine Nitrite Negative (NEG) Urine Bilirubin Negative (NEG) Urine Urobilinogen Dipstick 0.2 mg/dL (0.2 mg/dL) Urine Leukocyte Esterase Negative (NEG) Urine RBC 1-2 /HPF (0-2) Urine WBC 5-10 /HPF (0-4) Urine Squamous Epithelial Cells Occ /LPF Urine Bacteria Few /HPF (0-FEW) Urine Mucus Slight /LPF Laboratory Tests Test 12/21/16 03:25 12/21/16 06:30 Sodium Level 142 mmol/L (136-145) Potassium Level 3.9 mmol/L (3.5-5.1) Chloride Level 108 mmol/L (98-107) Carbon Dioxide Level 28 mmol/L (21-32) Anion Gap 6 (6-14) Blood Urea Nitrogen 19 mg/dL (8-26) Creatinine 1.2 mg/dL (0.7-1.3) Estimated GFR (Cockcroft-Gault) 70.0 Glucose Level 103 mg/dL (70-99) Calcium Level 8.5 mg/dL (8.5-10.1) Urine Collection Type Unknown Urine Color Yellow Urine Clarity Clear Urine pH 6.5 Urine Specific [place] 1.010 Urine Protein Negative mg/dL (NEG-TRACE) Urine Glucose (UA) Negative mg/dL (NEG) Urine Ketones (Stick) Negative mg/dL (NEG) Urine Blood Negative (NEG) Urine Nitrite Negative (NEG) Urine Bilirubin Negative (NEG) Urine Urobilinogen Dipstick 0.2 mg/dL (0.2 mg/dL) Urine Leukocyte Esterase Negative (NEG) Urine RBC 1-2 /HPF (0-2) Urine WBC 5-10 /HPF (0-4) Urine Squamous Epithelial Cells Occ /LPF Urine Bacteria Few /HPF (0-FEW) Urine Mucus Slight /LPF Medications Current Medications Iohexol (Omnipaque 300 Mg/ml) 75 ml 1X ONCE IV Last administered on 12/20/16 01:49; Start 12/20/16 at 02:00; Stop 12/20/16 at 02:01; Status DC Info (Do NOT chart on this entry -- for MONITORING) 1 each PRN DAILY PRN MC SEE COMMENTS; Start 12/20/16 at 01:45; Stop 12/22/16 at 01:44 Ondansetron HCl (Zofran) 4 mg PRN Q8HRS PRN IV NAUSEA/VOMITING; Start 12/20/16 at 04:30; Stop 12/21/16 at 04:29; Status DC Acetaminophen (Tylenol) 650 mg PRN Q4HRS PRN PO FEVER; Start 12/20/16 at 04:30 ; Stop 12/21/16 at 04:29; Status Cancel Acetaminophen (Tylenol) 650 mg PRN Q4HRS PRN PO PAIN; Start 12/20/16 at 09:30 Aspirin (Children'S Aspirin) 81 mg DAILY PO Last administered on 12/20/16 12: 11; Start 12/20/16 at 10:00 Calcium Carbonate/ Glycine (Tums) 200 mg DAILY PO Last administered on 12:10; Start 12/20/16 at 10:00 Vitamin D (Vitamin D3) 1,000 unit DAILY PO Last administered on 12/20/16 12:10 ; Start 12/20/16 at 10:00 Betamethasone/ Clotrimazole (Lotrisone) 1 abel BID TP Last administered on 19:53; Start 12/20/16 at 10:00 Latanoprost (Xalatan) 1 drop HS OU Last administered on 12/20/16 19:52; Start 12/20/16 at 21:00 Losartan Potassium (Cozaar) 50 mg DAILY PO ; Start 12/20/16 at 10:00; Stop 12/20 at 11:27; Status DC Brimonidine Tartrate (Alphagan) 1 drop BID OU Last administered on 12/20/16 19 :53; Start 12/20/16 at 10:00 Non-Formulary Medication 10.2 gm DAILY IH ; Start 12/21/16 at 09:00; Status UNV Non-Formulary Medication 1 each DAILY PO ; Start 12/21/16 at 09:00; Status UNV Ibuprofen (Motrin) 800 mg PRN Q6HRS PRN PO INFLAMMATION; Start 12/20/16 at 10: 00; Stop 12/20/16 at 12:54; Status DC Naproxen (Naprosyn) 250 mg PRN BID PRN PO PAIN; Start 12/20/16 at 10:00 Psyllium Hydrophilic Mucilloid (Metamucil Fiber Packet) 1 pkt DAILY PO Last administered on 12/20/16 12:08; Start 12/20/16 at 10:00 Multi-Ingredient Mouthwash/Gargle (Magic Mouthwash) 10 ml PRN TID PRN PO MOUTH PAIN PER PROTOCOL; Start 12/20/16 at 10:00 Albuterol Sulfate (Ventolin Neb Soln) 2.5 mg Q6H NEB ; Start 12/20/16 at 12:00; Stop 12/20/16 at 18:42; Status DC Budesonide (Pulmicort) 0.5 mg RTBID NEB ; Start 12/20/16 at 20:00; Stop at 20:00; Status DC Sodium Chloride 1,000 ml @ 100 mls/hr 1X ONCE IV Last administered on 12:21; Start 12/20/16 at 11:30; Stop 12/20/16 at 21:29; Status DC Hydralazine HCl (Apresoline) 10 mg PRN Q4HRS PRN IVP ELEVATED BP, SEE COMMENTS ; Start 12/20/16 at 11:30 Atorvastatin Calcium (Lipitor) 10 mg QHS PO Last administered on 12/20/16 19: 53; Start 12/20/16 at 21:00 Metoprolol Succinate (Toprol Xl) 25 mg DAILY PO Last administered on 12/20/16 12:14; Start 12/20/16 at 12:00 Pantoprazole Sodium (Protonix) 40 mg DAILYAC PO Last administered on 12/20/16 12:11; Start 12/20/16 at 11:45 Sodium Chloride 1,000 ml @ 75 mls/hr [id number] IV Last administered on t 03:34; Start 12/20/16 at 13:00 Non-Formulary Medication 2 ea DAILY INH ; Start 12/21/16 at 09:00 Active Scripts Active Reported Prevident 5000 (Sodium Fluoride) 100 Ml Gel..ml. 100 Ml DT Ibuprofen 800 Mg Tablet 800 Mg PO PRN Q6HRS PRN [Magic Mouthwash] 10 Ml TID PRN Cod Liver Oil 1 Each Capsule 1 Each PO DAILY Lotrisone Cream (Clotrimazole/Betamethasone Dip) 15 Gm Cream..g. 1 Abel TP BID Vitamin D3 (Cholecalciferol (Vitamin D3)) 1,000 Unit Tablet 1 Tab PO DAILY Tums (Calcium Carbonate) 200 Mg Tab.chew 200 Mg PO Benefiber (Wheat Dextrin) 1 Each Powd.pack 1 Each PO DAILY Aleve (Naproxen Sodium) 220 Mg Capsule 220 Mg PO BID PRN Symbicort 160-4.5 Mcg Inhaler (Budesonide/Formoterol Fumarate) 10.2 Gm Hfa.aer.ad 10.2 Gm IH DAILY Tylenol (Acetaminophen) 325 Mg Tablet 650 Mg PO Q4HRS PRN Aspirin 81 Mg Tab.chew 81 Mg PO DAILY Latanoprost 2.5 Ml Drops 1 Drop EACHEYE HS Losartan Potassium 50 Mg Tablet 50 Mg PO DAILY Alphagan P (Brimonidine Tartrate) 5 Ml Drops 1 Drop EACHEYE BID Vitals/I & O Vital Sign - Last 24 Hours 12/20/16 12/20/16 12/20/16 12/20/16 08:00 09:20 09:26 09:31 Pulse 79 79 84 B/P (MAP) 138/78 (98) 133/70 (91) 141/76 (97) O2 Delivery Room Air 12/20/16 12/20/16 12/20/16 12/20/16 11:12 12:14 14:41 19:10 Temp 98.6 98.6 97.7 98.6 98.6 97.7 Pulse 73 73 74 72 Resp 18 19 18 B/P (MAP) 139/71 (93) 139/71 140/78 (98) 130/61 (84) Pulse Ox 95 97 95 O2 Delivery Room Air Room Air Room Air 12/20/16 12/20/16 12/21/16 20:00 23:58 03:25 Temp 97.7 97.5 97.7 97.5 Pulse 69 66 Resp 16 16 B/P (MAP) 100/50 (67) 122/69 (86) Pulse Ox 96 96 O2 Delivery Room Air Room Air Room Air ISAI GOMEZ MD 12/21/16 1331: PROGRESS NOTES Plan Plan of Care Patient seen and examined. Agree with above nurse practitioner note. No acute events overnight. No new cardiovascular examination abnormalities. Telemetry unremarkable. Outpatient event monitoring. Thank you for this consultation. We'll follow-up in the office. PALLAVI TREVIÑO APRN Dec 21, 2016 08:02 ISAI GOMEZ MD Dec 21, 2016 13:31
[2016-12-21] MEDS: CALCIUM CARBONATE 500 MG TAB.CHEW PO SCH (08:34)
[2016-12-21] MEDS: ASPIRIN CHEWABLE 81 MG TABLET. PO SCH (08:35)
[2016-12-21] MEDS: METOPROLOL SUCC 24HR ER 25 MG TAB.ER.24H. PO SCH (08:35)
[2016-12-21] MEDS: CHOLECALCIFEROL (VITAMIN D3) 1,000 UNIT TABLET PO SCH (08:36)
[2016-12-21] MEDS: PSYLLIUM HUSK (SUGAR FREE) 1 PKT PACKET PO SCH (08:36)
[2016-12-21] MEDS: CLOTRIMAZOLE/BETAMETH 1%-0.05% TOPICAL CREAM 15GM TUBE. TP SCH (08:38)
[2016-12-21] MEDS: BRIMONIDINE 0.2% OPHTH SOLUTION 5ML BOTTLE. OU SCH (08:43)
[2016-12-21] MEDS ORDERED: NON FORMULARY ITEM (Budesonide/Formoterol Fumarate (Symbicort 160-4.5 Mcg Inhaler) 10.2 GM IH SCH (09:00)
[2016-12-21] MEDS ORDERED: SYMBICORT INH SCH (09:00)
[2016-12-21] MEDS ORDERED: NON FORMULARY ITEM (Cod Liver Oil 1 EACH) PO SCH (09:00)
[2016-12-21 11:00] VITALS: BP 124/75
--- NOTE | 2016-12-21 11:45 | PDOC ---
Renal-Progress Notes Subjective Notes Notes NO NEW COMPLAINTS History of Present Illness Hx of present illness STABLE Vitals Vitals Vital Signs Date Time Temp Pulse Resp B/P (MAP) Pulse Ox O2 Delivery O2 Flow Rate FiO2 12/21/16 08:35 66 122/69 12/21/16 08:00 Room Air 12/21/16 07:00 97.7 18 95 97.7 Weight Weight [ ] Labs Labs Laboratory Tests Test 12/21/16 03:25 12/21/16 06:30 Sodium Level 142 mmol/L (136-145) Potassium Level 3.9 mmol/L (3.5-5.1) Chloride Level 108 mmol/L (98-107) Carbon Dioxide Level 28 mmol/L (21-32) Anion Gap 6 (6-14) Blood Urea Nitrogen 19 mg/dL (8-26) Creatinine 1.2 mg/dL (0.7-1.3) Estimated GFR (Cockcroft-Gault) 70.0 Glucose Level 103 mg/dL (70-99) Calcium Level 8.5 mg/dL (8.5-10.1) Urine Collection Type Unknown Urine Color Yellow Urine Clarity Clear Urine pH 6.5 Urine Specific Worth 1.010 Urine Protein Negative mg/dL (NEG-TRACE) Urine Glucose (UA) Negative mg/dL (NEG) Urine Ketones (Stick) Negative mg/dL (NEG) Urine Blood Negative (NEG) Urine Nitrite Negative (NEG) Urine Bilirubin Negative (NEG) Urine Urobilinogen Dipstick 0.2 mg/dL (0.2 mg/dL) Urine Leukocyte Esterase Negative (NEG) Urine RBC 1-2 /HPF (0-2) Urine WBC 5-10 /HPF (0-4) Urine Squamous Epithelial Cells Occ /LPF Urine Bacteria Few /HPF (0-FEW) Urine Mucus Slight /LPF Review of Systems Constitutional: yes: weakness, alert, oriented Ears/Nose/Throat: Yes: no symptom reported Eyes: Yes: no symptom reported Pulmonary: Yes no symptom reported Cardiovascular: Yes no symptom reported Gastrointestional: Yes: no symptom reported Genitourinary: Yes: no symptom reported Skin: Yes no symptom reported Psychiatric/Neurological: Yes: no symptom reported Physical Exam General Appearance: no apparent distress Skin: warm Respiratory: bilateral CTA Heart: S1S2, RRR Abdomen: soft, bowel sounds present Genitourinary: bladder flat Neurology: alert Musculoskeletal: Osteoarthritis Assessment Assessment IMP DIAMOND-RESOLVED DEHYDRATION PLAN CONT IVF'S NEEDED MINIMIZE NSAID USE WILL SIGN OFF PLEASE CALL IF NEEDED KATIA DELACRUZ MD Dec 21, 2016 11:45
--- NOTE | 2016-12-21 12:52 | PDOC ---
PROGRESS NOTES Chief Complaint Chief Complaint syncope dizziness History of Present Illness History of Present Illness Patient awake and talkative with muffled voice. Patient reclined in bed w/ no apparent distress. Patient indicated he was ready to be discharged. Asked what lead to his syncope. Discussed the likelihood of patient having mild arrhythmia that resolved before arrival to hospital. When asked patient indicated he had history of mitral valvae stenosis and prostate, lung, bladder cancer. Vitals Vitals Vital Signs Date Time Temp Pulse Resp B/P (MAP) Pulse Ox O2 Delivery O2 Flow Rate FiO2 12/21/16 11:00 97.9 67 18 124/75 (91) 98 Room Air 97.9 Physical Exam Physical Exam Patient reclining in bed with no trouble breathing. Able to converse in full sentences with no SOB or altered mental status. General: Alert, Oriented X3, Cooperative, No acute distress Heart: Regular rate, Normal S1, Normal S2 Lungs: Clear Abdomen: Normal bowel sounds, Soft, No tenderness Extremities: No cyanosis, No edema, Normal pulses Skin: No breakdown Labs LABS Laboratory Tests Test 12/21/16 03:25 12/21/16 06:30 Sodium Level 142 mmol/L (136-145) Potassium Level 3.9 mmol/L (3.5-5.1) Chloride Level 108 mmol/L (98-107) Carbon Dioxide Level 28 mmol/L (21-32) Anion Gap 6 (6-14) Blood Urea Nitrogen 19 mg/dL (8-26) Creatinine 1.2 mg/dL (0.7-1.3) Estimated GFR (Cockcroft-Gault) 70.0 Glucose Level 103 mg/dL (70-99) Calcium Level 8.5 mg/dL (8.5-10.1) Urine Collection Type Unknown Urine Color Yellow Urine Clarity Clear Urine pH 6.5 Urine Specific [place] 1.010 Urine Protein Negative mg/dL (NEG-TRACE) Urine Glucose (UA) Negative mg/dL (NEG) Urine Ketones (Stick) Negative mg/dL (NEG) Urine Blood Negative (NEG) Urine Nitrite Negative (NEG) Urine Bilirubin Negative (NEG) Urine Urobilinogen Dipstick 0.2 mg/dL (0.2 mg/dL) Urine Leukocyte Esterase Negative (NEG) Urine RBC 1-2 /HPF (0-2) Urine WBC 5-10 /HPF (0-4) Urine Squamous Epithelial Cells Occ /LPF Urine Bacteria Few /HPF (0-FEW) Urine Mucus Slight /LPF Review of Systems Review of Systems Patient tired and hungry. Assessment and Plan Assessmemt and Plan Problems Medical Problems: (1) Syncope Status: Acute Assessment: 1. Syncope Plan: 1. Continue home meds 2. Continue diet as tolerated 3. Patient advised to return to hospital if dizziness and syncope occur again. 4. OK w/ d/c when subspecialists agree 5. Continue fluids. Problems: Comment Review of Relevant I have reviewed the following items joshua (where applicable) has been applied. Labs Laboratory Tests Test 12/20/16 01:08 12/21/16 03:25 12/21/16 06:30 White Blood Count 11.4 x10^3/uL (4.0-11.0) Red Blood Count 4.26 x10^6/uL (4.30-5.70) Hemoglobin 12.7 g/dL (13.0-17.5) Hematocrit 38.9 % (39.0-53.0) Mean Corpuscular Volume 91 fL (79-100) Mean Corpuscular Hemoglobin 30 pg (25-35) Mean Corpuscular Hemoglobin Concent 33 g/dL (31-37) Red Cell Distribution Width 13.5 % (11.5-14.5) Platelet Count 168 x10^3/uL (140-400) Neutrophils (%) (Auto) 78 % (31-73) Lymphocytes (%) (Auto) 8 % (24-48) Monocytes (%) (Auto) 13 % (0-9) Eosinophils (%) (Auto) 1 % (0-3) Basophils (%) (Auto) 0 % (0-3) Neutrophils # (Auto) 8.8 x10^3uL (1.8-7.7) Lymphocytes # (Auto) 0.9 x10^3/uL (1.0-4.8) Monocytes # (Auto) 1.5 x10^3/uL (0.0-1.1) Eosinophils # (Auto) 0.1 x10^3/uL (0.0-0.7) Basophils # (Auto) 0.0 x10^3/uL (0.0-0.2) Prothrombin Time 12.7 SEC (11.7-14.0) Prothromb Time International Ratio 1.0 (0.8-1.1) Activated Partial Thromboplast Time 30 SEC (24-38) Sodium Level 144 mmol/L (136-145) 142 mmol/L (136-145) Potassium Level 3.8 mmol/L (3.5-5.1) 3.9 mmol/L (3.5-5.1) Chloride Level 107 mmol/L (98-107) 108 mmol/L (98-107) Carbon Dioxide Level 28 mmol/L (21-32) 28 mmol/L (21-32) Anion Gap 9 (6-14) 6 (6-14) Blood Urea Nitrogen 31 mg/dL (8-26) 19 mg/dL (8-26) Creatinine 1.5 mg/dL (0.7-1.3) 1.2 mg/dL (0.7-1.3) Estimated GFR (Cockcroft-Gault) 54.1 70.0 BUN/Creatinine Ratio 21 (6-20) Glucose Level 105 mg/dL (70-99) 103 mg/dL (70-99) Calcium Level 9.4 mg/dL (8.5-10.1) 8.5 mg/dL (8.5-10.1) Total Bilirubin 1.2 mg/dL (0.2-1.0) Aspartate Amino Transf (AST/SGOT) 31 U/L (15-37) Alanine Aminotransferase (ALT/SGPT) 32 U/L (16-63) Alkaline Phosphatase 67 U/L (46-116) Troponin I Quantitative < 0.017 ng/mL (0.000-0.055) ZF-Uhb-W-Type Natriuretic Peptide 93 pg/mL (0-449) Total Protein 7.3 g/dL (6.4-8.2) Albumin 3.9 g/dL (3.4-5.0) Albumin/Globulin Ratio 1.1 (1.0-1.7) Urine Collection Type Unknown Urine Color Yellow Urine Clarity Clear Urine pH 6.5 Urine Specific [place] 1.010 Urine Protein Negative mg/dL (NEG-TRACE) Urine Glucose (UA) Negative mg/dL (NEG) Urine Ketones (Stick) Negative mg/dL (NEG) Urine Blood Negative (NEG) Urine Nitrite Negative (NEG) Urine Bilirubin Negative (NEG) Urine Urobilinogen Dipstick 0.2 mg/dL (0.2 mg/dL) Urine Leukocyte Esterase Negative (NEG) Urine RBC 1-2 /HPF (0-2) Urine WBC 5-10 /HPF (0-4) Urine Squamous Epithelial Cells Occ /LPF Urine Bacteria Few /HPF (0-FEW) Urine Mucus Slight /LPF Laboratory Tests Test 12/21/16 03:25 12/21/16 06:30 Sodium Level 142 mmol/L (136-145) Potassium Level 3.9 mmol/L (3.5-5.1) Chloride Level 108 mmol/L (98-107) Carbon Dioxide Level 28 mmol/L (21-32) Anion Gap 6 (6-14) Blood Urea Nitrogen 19 mg/dL (8-26) Creatinine 1.2 mg/dL (0.7-1.3) Estimated GFR (Cockcroft-Gault) 70.0 Glucose Level 103 mg/dL (70-99) Calcium Level 8.5 mg/dL (8.5-10.1) Urine Collection Type Unknown Urine Color Yellow Urine Clarity Clear Urine pH 6.5 Urine Specific [place] 1.010 Urine Protein Negative mg/dL (NEG-TRACE) Urine Glucose (UA) Negative mg/dL (NEG) Urine Ketones (Stick) Negative mg/dL (NEG) Urine Blood Negative (NEG) Urine Nitrite Negative (NEG) Urine Bilirubin Negative (NEG) Urine Urobilinogen Dipstick 0.2 mg/dL (0.2 mg/dL) Urine Leukocyte Esterase Negative (NEG) Urine RBC 1-2 /HPF (0-2) Urine WBC 5-10 /HPF (0-4) Urine Squamous Epithelial Cells Occ /LPF Urine Bacteria Few /HPF (0-FEW) Urine Mucus Slight /LPF Medications Current Medications Iohexol (Omnipaque 300 Mg/ml) 75 ml 1X ONCE IV Last administered on 12/20/16t 01:49; Start 12/20/16 at 02:00; Stop 12/20/16 at 02:01; Status DC Info (Do NOT chart on this entry -- for MONITORING) 1 each PRN DAILY PRN MC SEE COMMENTS; Start 12/20/16 at 01:45; Stop 12/22/16 at 01:44 Ondansetron HCl (Zofran) 4 mg PRN Q8HRS PRN IV NAUSEA/VOMITING; Start 12/20/16 at 04:30; Stop 12/21/16 at 04:29; Status DC Acetaminophen (Tylenol) 650 mg PRN Q4HRS PRN PO FEVER; Start 12/20/16 at 04:30 ; Stop 12/21/16 at 04:29; Status Cancel Acetaminophen (Tylenol) 650 mg PRN Q4HRS PRN PO PAIN; Start 12/20/16 at 09:30 Aspirin (Children'S Aspirin) 81 mg DAILY PO Last administered on 12/21/16 08: 35; Start 12/20/16 at 10:00 Calcium Carbonate/ Glycine (Tums) 200 mg DAILY PO Last administered on 08:34; Start 12/20/16 at 10:00 Vitamin D (Vitamin D3) 1,000 unit DAILY PO Last administered on 12/20/16 12:10 ; Start 12/20/16 at 10:00 Betamethasone/ Clotrimazole (Lotrisone) 1 abel BID TP Last administered on 08:38; Start 12/20/16 at 10:00 Latanoprost (Xalatan) 1 drop HS OU Last administered on 12/20/16 19:52; Start 12/20/16 at 21:00 Losartan Potassium (Cozaar) 50 mg DAILY PO ; Start 12/20/16 at 10:00; Stop 12/20 at 11:27; Status DC Brimonidine Tartrate (Alphagan) 1 drop BID OU Last administered on 12/21/16 08 :43; Start 12/20/16 at 10:00 Non-Formulary Medication 10.2 gm DAILY IH ; Start 12/21/16 at 09:00; Status UNV Non-Formulary Medication 1 each DAILY PO ; Start 12/21/16 at 09:00; Status UNV Ibuprofen (Motrin) 800 mg PRN Q6HRS PRN PO INFLAMMATION; Start 12/20/16 at 10: 00; Stop 12/20/16 at 12:54; Status DC Naproxen (Naprosyn) 250 mg PRN BID PRN PO PAIN; Start 12/20/16 at 10:00 Psyllium Hydrophilic Mucilloid (Metamucil Fiber Packet) 1 pkt DAILY PO Last administered on 12/20/16 12:08; Start 12/20/16 at 10:00 Multi-Ingredient Mouthwash/Gargle (Magic Mouthwash) 10 ml PRN TID PRN PO MOUTH PAIN PER PROTOCOL; Start 12/20/16 at 10:00 Albuterol Sulfate (Ventolin Neb Soln) 2.5 mg Q6H NEB ; Start 12/20/16 at 12:00; Stop 12/20/16 at 18:42; Status DC Budesonide (Pulmicort) 0.5 mg RTBID NEB ; Start 12/20/16 at 20:00; Stop at 20:00; Status DC Sodium Chloride 1,000 ml @ 100 mls/hr 1X ONCE IV Last administered on 12:21; Start 12/20/16 at 11:30; Stop 12/20/16 at 21:29; Status DC Hydralazine HCl (Apresoline) 10 mg PRN Q4HRS PRN IVP ELEVATED BP, SEE COMMENTS ; Start 12/20/16 at 11:30 Atorvastatin Calcium (Lipitor) 10 mg QHS PO Last administered on 12/20/16 19: 53; Start 12/20/16 at 21:00 Metoprolol Succinate (Toprol Xl) 25 mg DAILY PO Last administered on 12/21/16 08:35; Start 12/20/16 at 12:00 Pantoprazole Sodium (Protonix) 40 mg DAILYAC PO Last administered on 12/20/16 12:11; Start 12/20/16 at 11:45 Sodium Chloride 1,000 ml @ 75 mls/hr [id number] IV Last administered on 03:34; Start 12/20/16 at 13:00 Non-Formulary Medication 2 ea DAILY INH Last administered on 12/21/16 08:43; Start 12/21/16 at 09:00 Active Scripts Active Reported Prevident 5000 (Sodium Fluoride) 100 Ml Gel..ml. 100 Ml DT Ibuprofen 800 Mg Tablet 800 Mg PO PRN Q6HRS PRN [Magic Mouthwash] 10 Ml TID PRN Cod Liver Oil 1 Each Capsule 1 Each PO DAILY Lotrisone Cream (Clotrimazole/Betamethasone Dip) 15 Gm Cream..g. 1 Abel TP BID Vitamin D3 (Cholecalciferol (Vitamin D3)) 1,000 Unit Tablet 1 Tab PO DAILY Tums (Calcium Carbonate) 200 Mg Tab.chew 200 Mg PO Benefiber (Wheat Dextrin) 1 Each Powd.pack 1 Each PO DAILY Aleve (Naproxen Sodium) 220 Mg Capsule 220 Mg PO BID PRN Symbicort 160-4.5 Mcg Inhaler (Budesonide/Formoterol Fumarate) 10.2 Gm Hfa.aer.ad 10.2 Gm IH DAILY Tylenol (Acetaminophen) 325 Mg Tablet 650 Mg PO Q4HRS PRN Aspirin 81 Mg Tab.chew 81 Mg PO DAILY Latanoprost 2.5 Ml Drops 1 Drop EACHEYE HS Losartan Potassium 50 Mg Tablet 50 Mg PO DAILY Alphagan P (Brimonidine Tartrate) 5 Ml Drops 1 Drop EACHEYE BID Vitals/I & O Vital Sign - Last 24 Hours 12/20/16 12/20/16 12/20/16 12/20/16 14:41 19:10 20:00 23:58 Temp 98.6 97.7 97.7 98.6 97.7 97.7 Pulse 74 72 69 Resp 19 18 16 B/P (MAP) 140/78 (98) 130/61 (84) 100/50 (67) Pulse Ox 97 95 96 O2 Delivery Room Air Room Air Room Air Room Air 12/21/16 12/21/16 12/21/16 12/21/16 03:25 07:00 08:00 08:35 Temp 97.5 97.7 97.5 97.7 Pulse 66 63 66 Resp 16 18 B/P (MAP) 122/69 (86) 137/64 (88) 122/69 Pulse Ox 96 95 O2 Delivery Room Air Room Air Room Air 12/21/16 11:00 Temp 97.9 97.9 Pulse 67 Resp 18 B/P (MAP) 124/75 (91) Pulse Ox 98 O2 Delivery Room Air DELMY MONTEMAYOR III DO Dec 21, 2016 12:52
--- NOTE | 2017-01-09 12:38 | DS ---
DATE OF DISCHARGE: 12/21/2016 DATE OF ADMISSION: 12/20/2016 DATE OF DISCHARGE: 12/21/2016 ADMISSION DIAGNOSIS: Syncope. DISCHARGE DIAGNOSES: Resolving syncope, suspect dehydration or an arrhythmia. Prostate cancer, bladder cancer and lung cancer. HOSPITAL COURSE: The patient is a pleasant 81-year-old male who presented with a syncopal episode. He was admitted. We gave him fluids. We did some observation and cardiac monitoring. His symptoms resolved. We discharged home with close outpatient followup. DISPOSITION: Home. ACTIVITY: As tolerated. DIET: Low sodium. MEDICATIONS: Please see the MRAD. TOTAL TIME: 31 minutes. DELMY MONTEMAYOR DO DR: MIGUEL/romana JOB#: [id number] / [id number]
== END 2016-12-21 15:15 | disposition home or self-care (01) | DRG 682 ==
LOC: ER 00:44 → 6 SOUTH 03:12
PROVIDERS: ADMIT Internal Medicine Hematology & Oncology; ATTEND Internal Medicine Hematology & Oncology
DX: N17.0 Acute kidney failure with tubular necrosis (principal); G93.41 Metabolic encephalopathy; C78.7 Secondary malignant neoplasm of liver and intrahepatic bile duct; J44.9 Chronic obstructive pulmonary disease, unspecified; G90.8 Other disorders of autonomic nervous system; E86.0 Dehydration; C34.32 Malignant neoplasm of lower lobe, left bronchus or lung; R13.10 Dysphagia, unspecified; I10 Essential (primary) hypertension; Z90.6 Acquired absence of other parts of urinary tract; E78.00 Pure hypercholesterolemia, unspecified; W19.XXXA Unspecified fall, initial encounter; E78.5 Hyperlipidemia, unspecified; I05.0 Rheumatic mitral stenosis; I25.10 Atherosclerotic heart disease of native coronary artery without angina pectoris; K21.9 Gastro-esophageal reflux disease without esophagitis; R32 Unspecified urinary incontinence; Z82.49 Family history of ischemic heart disease and other diseases of the circulatory system; Z83.3 Family history of diabetes mellitus; Z85.46 Personal history of malignant neoplasm of prostate; Z85.51 Personal history of malignant neoplasm of bladder; Z87.891 Personal history of nicotine dependence; Z92.21 Personal history of antineoplastic chemotherapy; Z98.61 Coronary angioplasty status; Z98.1 Arthrodesis status; Z90.49 Acquired absence of other specified parts of digestive tract; Z88.1 Allergy status to other antibiotic agents; Z88.2 Allergy status to sulfonamides; Z90.79 Acquired absence of other genital organ(s); Y93.89 Activity, other specified; Y92.092 Bedroom in other non-institutional residence as the place of occurrence of the external cause; Y99.8 Other external cause status
CPT/HCPCS: 36415; 70450; 70551; 74177; 80048; 80053; 81001; 83880; 84484; 85025; 85610; 85730; 87086; 93005; 94250; 94760; J7030; Q9967; 99285-25

== ENCOUNTER → 2017-02-25 | Outpatient (CLI) | payer MEDICARE, OTHER ==
[~2017-02-25] MED LIST changes: +IOHEXOL 240 MG/ML 50ML VIAL. PO ONE
--- NOTE | 2017-02-25 10:57 | RAD ---
CT of the chest, abdomen and pelvis with contrast, 02/25/2017: History: Follow-up lung cancer Multidetector CT imaging was performed following oral ingestion of contrast. No IV contrast was administered as requested. Comparison is made to the CT study of 12/17/2016. There is a peripheral air-containing cystic structure with predominantly thin jensen in the posterior aspect of the left lower lobe, in the area of the patient's treated lung malignancy. There is only slight nodularity along its medial wall which is unchanged. A calcified granuloma is present medially in the right lower lobe. There is minimal linear scarring posteriorly in the right lung base. No new pulmonary abnormality is seen. There is no evidence of pleural fluid. There is mild calcific plaquing of the thoracic aorta. Mild coronary artery calcifications are present. No mediastinal adenopathy is seen. There is a small amount of pericardial fluid, unchanged since 12/17/2016. There is an unchanged tiny low-density lesion in the posterolateral aspect of the right lobe of the liver, probably a cyst. The unopacified liver is otherwise unremarkable. No gallbladder abnormality is seen. The pancreas shows no abnormality. The spleen is of normal size. No renal abnormality is detected. There is unchanged slight nodular thickening of the left adrenal gland, probably an adenoma. There is mild aortoiliac calcific plaquing. No abdominal or pelvic adenopathy is seen. An abnormal septated or bilobed configuration of the urinary bladder is again noted. This probably represents a surgically reconstructed bladder in this patient with a history of bladder cancer. There is a moderate amount of stool scattered throughout the colon. The colon is not dilated. A portion of the appendix is visualized and it is unremarkable. There is mild distention of several small bowel loops in the upper abdomen, unchanged since 12/20/2016. These extend up underneath the right hemidiaphragm along the anterior aspect of the liver. No free air or free fluid is evident in the abdomen or pelvis. There are moderate scattered degenerative changes in the lumbar spine. A small sclerotic focus in the S2 vertebral body is unchanged. There is also an unchanged tiny sclerotic focus in the posterior aspect of the left seventh rib. These may be bone islands, although old quiescent metastatic disease could also give this appearance. IMPRESSION: 1. Unchanged thin-walled cavitary lesion with minimal nodularity along its medial wall in the posterior aspect of left lower lobe, apparently representing the remnants of the patient's treated lung malignancy. 2. No new chest abnormality is detected. 3. No CT evidence of intra-abdominal or pelvic metastatic disease. 4. Unchanged tiny sclerotic foci at S2 and in the left seventh rib. PQRS Compliance Statement: One or more of the following individualized dose reduction techniques were utilized for this examination: 1. Automated exposure control 2. Adjustment of the mA and/or kV according to patient size 3. Use of iterative reconstruction technique
== END | disposition home or self-care (01) ==
LOC: CT 08:39
PROVIDERS: ATTEND Internal Medicine Hematology & Oncology
DX: C34.92 Malignant neoplasm of unspecified part of left bronchus or lung (principal); I62.9 Nontraumatic intracranial hemorrhage, unspecified; I25.10 Atherosclerotic heart disease of native coronary artery without angina pectoris
CPT/HCPCS: 71250; 74176; Q9966

== ENCOUNTER 2017-05-08 12:07 | Inpatient (IN) | payer MEDICARE, OTHER ==
[2017-05-08] MEDS: MECLIZINE HCL 12.5 MG TABLET. PO (13:30)
[2017-05-08 13:36] LABS: ADD MAN DIFF? NO
[2017-05-08 13:45] LABS: BASO % 1 % (0-3); EOS # 0.1 x10^3/uL (0.0-0.7); EOS % 3 % (0-3); HEMATOCRIT 37.2 % (39.0-53.0); HEMOGLOBIN 12.6 g/dL (13.0-17.5); LYMPH % 19 % (24-48); MEAN CORPUSCULAR HEMOGLOBIN 31 pg (25-35); MEAN CORPUSCULAR HGB CONC 34 g/dL (31-37); MEAN CORPUSCULAR VOLUME 90 fL (79-100); MONO # 0.6 x10^3/uL (0.0-1.1); MONO % 12 % (0-9); NEUT # 3.5 x10^3uL (1.8-7.7); NEUT % 66 % (31-73); PLATELET COUNT 208 x10^3/uL (140-400); RED BLOOD COUNT 4.12 x10^6/uL (4.30-5.70); RED CELL DISTRIBUTION WIDTH 13.5 % (11.5-14.5); WHITE BLOOD COUNT 5.3 x10^3/uL (4.0-11.0)
[2017-05-08 13:52] LABS: ANION GAP 6 (6-14); BLOOD UREA NITROGEN 13 mg/dL (8-26); BUN/CREATININE RATIO 11 (6-20); CALCIUM 8.9 mg/dL (8.5-10.1); CARBON DIOXIDE 31 mmol/L (21-32); CHLORIDE 105 mmol/L (98-107); CREATININE 1.2 mg/dL (0.7-1.3); GFR 69.8; GLUCOSE 115 mg/dL (70-99); POTASSIUM 4.1 mmol/L (3.5-5.1); SODIUM 142 mmol/L (136-145)
[2017-05-08] MEDS: ASPIRIN CHEWABLE 81 MG TABLET. PO (13:53)
[2017-05-08 13:58] LABS: INR 1.1 (0.8-1.1); PARTIAL THROMBOPLASTIN TIME 33 SEC (24-38); PROTHROMBIN TIME PATIENT 13.4 SEC (11.7-14.0)
[2017-05-08 14:00] LABS: ALBUMIN 3.5 g/dL (3.4-5.0); ALK PHOS 57 U/L (46-116); ALT (SGPT) 26 U/L (16-63); AST (SGOT) 23 U/L (15-37); MAGNESIUM 1.9 mg/dL (1.8-2.4); TOTAL BILIRUBIN 1.4 mg/dL (0.2-1.0)
[2017-05-08 14:03] LABS: NT-PRO BNP 156 pg/mL (0-449)
[2017-05-08 14:06] LABS: THYROID STIM HORMONE (TSH) 1.548 uIU/mL (0.358-3.74)
[2017-05-08 14:09] LABS: TROPONINI < 0.017 ng/mL (0.000-0.055)
[2017-05-08] MEDS ORDERED: ONDANSETRON PF 4 MG/2 ML VIAL. IV (14:45)
[2017-05-08] MEDS ORDERED: LABETALOL 20 MG/4 ML DISP.SYRIN. IVP (16:00)
[2017-05-08 18:52] LABS: TROPONINI < 0.017 ng/mL (0.000-0.055)
[2017-05-09 04:03] LABS: ADD MAN DIFF? NO
[2017-05-09 04:51] LABS: BASO % 1 % (0-3); EOS # 0.1 x10^3/uL (0.0-0.7); EOS % 2 % (0-3); HEMATOCRIT 34.1 % (39.0-53.0); HEMOGLOBIN 11.7 g/dL (13.0-17.5); LYMPH # 1.1 x10^3/uL (1.0-4.8); LYMPH % 18 % (24-48); MEAN CORPUSCULAR HEMOGLOBIN 31 pg (25-35); MEAN CORPUSCULAR HGB CONC 34 g/dL (31-37); MEAN CORPUSCULAR VOLUME 90 fL (79-100); MONO # 0.9 x10^3/uL (0.0-1.1); MONO % 14 % (0-9); NEUT # 4.1 x10^3uL (1.8-7.7); NEUT % 65 % (31-73); PLATELET COUNT 189 x10^3/uL (140-400); RED BLOOD COUNT 3.78 x10^6/uL (4.30-5.70); RED CELL DISTRIBUTION WIDTH 13.4 % (11.5-14.5); WHITE BLOOD COUNT 6.2 x10^3/uL (4.0-11.0)
[2017-05-09 05:40] LABS: ANION GAP 10 (6-14); BLOOD UREA NITROGEN 18 mg/dL (8-26); CALCIUM 9.2 mg/dL (8.5-10.1); CARBON DIOXIDE 25 mmol/L (21-32); CHLORIDE 106 mmol/L (98-107); CREATININE 1.3 mg/dL (0.7-1.3); GFR 63.6; GLUCOSE 104 mg/dL (70-99); POTASSIUM 3.9 mmol/L (3.5-5.1); SODIUM 141 mmol/L (136-145)
[2017-05-09] MEDS: ASPIRIN CHEWABLE 81 MG TABLET. PO (08:51)
[2017-05-09] MEDS: PANTOPRAZOLE 40 MG TABLET.DR. PO (08:51)
[2017-05-09] MEDS: LOSARTAN POTASSIUM 50 MG TABLET. PO (08:51)
[2017-05-09] MEDS: BRIMONIDINE 0.2% OPHTH SOLUTION 5ML BOTTLE. OU ×3 (09:06→21:18)
[2017-05-09] MEDS: SIMETHICONE 80 MG TAB.CHEW PO (21:16)
[2017-05-09] MEDS: LATANOPROST 0.005% OPHTH SOLUTION 2.5ML BOTTLE. OU (21:17)
[2017-05-10] MEDS: PANTOPRAZOLE 40 MG TABLET.DR. PO (08:41)
[2017-05-10] MEDS: ASPIRIN CHEWABLE 81 MG TABLET. PO (08:41)
[2017-05-10] MEDS: BRIMONIDINE 0.2% OPHTH SOLUTION 5ML BOTTLE. OU (08:42)
[2017-05-10] MEDS: LOSARTAN POTASSIUM 50 MG TABLET. PO (08:42)
[2017-05-10 11:33] LABS: ADD MAN DIFF? NO
[2017-05-10 11:38] LABS: BASO % 1 % (0-3); EOS # 0.2 x10^3/uL (0.0-0.7); EOS % 3 % (0-3); HEMATOCRIT 38.1 % (39.0-53.0); HEMOGLOBIN 12.9 g/dL (13.0-17.5); LYMPH # 1.2 x10^3/uL (1.0-4.8); LYMPH % 20 % (24-48); MEAN CORPUSCULAR HEMOGLOBIN 31 pg (25-35); MEAN CORPUSCULAR HGB CONC 34 g/dL (31-37); MEAN CORPUSCULAR VOLUME 91 fL (79-100); MONO # 0.9 x10^3/uL (0.0-1.1); MONO % 15 % (0-9); NEUT # 3.8 x10^3uL (1.8-7.7); NEUT % 63 % (31-73); PLATELET COUNT 182 x10^3/uL (140-400); RED BLOOD COUNT 4.21 x10^6/uL (4.30-5.70); RED CELL DISTRIBUTION WIDTH 13.9 % (11.5-14.5); WHITE BLOOD COUNT 6.1 x10^3/uL (4.0-11.0)
[2017-05-10 11:46] LABS: ANION GAP 9 (6-14); BLOOD UREA NITROGEN 21 mg/dL (8-26); CALCIUM 9.3 mg/dL (8.5-10.1); CARBON DIOXIDE 27 mmol/L (21-32); CHLORIDE 104 mmol/L (98-107); CREATININE 1.3 mg/dL (0.7-1.3); GFR 63.6; GLUCOSE 126 mg/dL (70-99); SODIUM 140 mmol/L (136-145)
== END 2017-05-10 15:30 | disposition home or self-care (01) | DRG 206 ==
LOC: ER 12:07 → 6 SOUTH 13:29
DX: M94.0 Chondrocostal junction syndrome [Tietze] (principal); C78.7 Secondary malignant neoplasm of liver and intrahepatic bile duct; C34.32 Malignant neoplasm of lower lobe, left bronchus or lung; I05.0 Rheumatic mitral stenosis; R13.10 Dysphagia, unspecified; J44.9 Chronic obstructive pulmonary disease, unspecified; Z90.6 Acquired absence of other parts of urinary tract; R07.89 Other chest pain; I25.10 Atherosclerotic heart disease of native coronary artery without angina pectoris; E78.00 Pure hypercholesterolemia, unspecified; K21.9 Gastro-esophageal reflux disease without esophagitis; E78.5 Hyperlipidemia, unspecified; H40.9 Unspecified glaucoma; I10 Essential (primary) hypertension; M81.0 Age-related osteoporosis without current pathological fracture; G89.29 Other chronic pain; M19.90 Unspecified osteoarthritis, unspecified site; Z82.49 Family history of ischemic heart disease and other diseases of the circulatory system; Z85.46 Personal history of malignant neoplasm of prostate; Z85.51 Personal history of malignant neoplasm of bladder; Z87.891 Personal history of nicotine dependence; Z95.5 Presence of coronary angioplasty implant and graft; Z88.2 Allergy status to sulfonamides; Z88.1 Allergy status to other antibiotic agents; Z90.79 Acquired absence of other genital organ(s)
CPT/HCPCS: 36415; 70450; 70551; 71045; 80048; 80053; 83735; 83880; 84443; 84484; 85025; 85610; 85730; 93005; 93308; 97163-GP; 97166-GO; 99285; 99285-25; J8597

== ENCOUNTER → 2017-05-20 | Outpatient (CLI) | payer MEDICARE, OTHER ==
[~2017-05-20] MED LIST changes: -ACET250T2 PO; -ACET325T9 PO; -ACET500C15 PO; -ASPI-630 PO; -ATOR20TA58 PO; -BRIM5DRO3 EACHEYE; -BUDE10.2 IH; -CALC200T3 PO; -CHOL10003 PO; -CHOL200044 PO; -CIPR250T PO; -CLOT15CR3 TP; -COD1CAPS2 PO; -DOCU-109 PO; -FAMO-63 PO; -Hydrocodone/Acetaminophen PO; -IBUP-1060 PO; +IOHEXOL 240 MG/ML 50ML VIAL. PO; -IOHEXOL 240 MG/ML 50ML VIAL. PO ONE; -LATA2.5D3 EACHEYE; -LOSA50TA6 PO; -MAGIC MOUTHWASH; -NAPR220C4 PO; -PANT40TA3 PO; -PROM5SYR2 PO; -SODI100G DT; -WHEA1POW8 PO
== END | disposition home or self-care (01) ==
LOC: CT 10:23
DX: C34.92 Malignant neoplasm of unspecified part of left bronchus or lung (principal); J84.10 Pulmonary fibrosis, unspecified
CPT/HCPCS: 71250; 74176; Q9966

== ENCOUNTER → 2017-07-21 | Outpatient (CLI) | payer MEDICARE, OTHER | END | disposition home or self-care (01) | LOC: CT 09:17 | DX: C34.92 Malignant neoplasm of unspecified part of left bronchus or lung (principal); J43.9 Emphysema, unspecified; I31.3 Pericardial effusion (noninflammatory); I70.0 Atherosclerosis of aorta | CPT/HCPCS: 71250; 74176; Q9966 ==

== ENCOUNTER → 2017-08-22 | Outpatient (CLI) | payer MEDICARE, OTHER ==
[2017-08-22 10:32] LABS: ADD MAN DIFF? NO
[2017-08-22 10:48] LABS: BASO % 1 % (0-3); EOS # 0.2 x10^3/uL (0.0-0.7); EOS % 3 % (0-3); HEMATOCRIT 38.8 % (39.0-53.0); HEMOGLOBIN 13.3 g/dL (13.0-17.5); LYMPH # 1.2 x10^3/uL (1.0-4.8); LYMPH % 19 % (24-48); MEAN CORPUSCULAR HEMOGLOBIN 31 pg (25-35); MEAN CORPUSCULAR HGB CONC 34 g/dL (31-37); MEAN CORPUSCULAR VOLUME 91 fL (79-100); MONO # 0.7 x10^3/uL (0.0-1.1); MONO % 12 % (0-9); NEUT # 4.2 x10^3uL (1.8-7.7); NEUT % 66 % (31-73); PLATELET COUNT 171 x10^3/uL (140-400); RED BLOOD COUNT 4.28 x10^6/uL (4.30-5.70); RED CELL DISTRIBUTION WIDTH 13.6 % (11.5-14.5); WHITE BLOOD COUNT 6.3 x10^3/uL (4.0-11.0)
[2017-08-22 11:00] LABS: ALBUMIN 3.7 g/dL (3.4-5.0); ALK PHOS 69 U/L (46-116); ALT (SGPT) 30 U/L (16-63); ANION GAP 8 (6-14); AST (SGOT) 22 U/L (15-37); BLOOD UREA NITROGEN 18 mg/dL (8-26); CARBON DIOXIDE 28 mmol/L (21-32); CHLORIDE 106 mmol/L (98-107); CHOLESTEROL 145 mg/dL (0-200); CREATININE 1.3 mg/dL (0.7-1.3); DIRECT BILIRUBIN 0.3 mg/dL (0.0-0.2); GFR 63.6; GLUCOSE 104 mg/dL (70-99); HDLC 58 mg/dL (40-60); LDLC 74 mg/dL (0-100); MAGNESIUM 2.2 mg/dL (1.8-2.4); NON-HDL CHOLESTEROL 87 mg/dL (0-129); POTASSIUM 4.3 mmol/L (3.5-5.1); SODIUM 142 mmol/L (136-145); TOTAL BILIRUBIN 1.3 mg/dL (0.2-1.0); TOTAL PROTEIN 7.2 g/dL (6.4-8.2); TRIGLYCERIDES 66 mg/dL (0-150); VLDLC 13 mg/dL (0-40)
[2017-08-22 11:06] LABS: CHOLESTEROL/HDL RATIO 2.5
== END | disposition home or self-care (01) ==
LOC: LAB 10:14
DX: E78.5 Hyperlipidemia, unspecified (principal); I12.9 Hypertensive chronic kidney disease with stage 1 through stage 4 chronic kidney disease, or unspecified chronic kidney disease; N18.3 Chronic kidney disease, stage 3 (moderate)
CPT/HCPCS: 36415; 80048; 80061; 80076; 83735; 85025

== ENCOUNTER → 2017-10-22 | Outpatient (CLI) | payer MEDICARE, OTHER ==
[~2017-10-22] MED LIST changes: +CONTRAST GIVEN. MC
== END | disposition home or self-care (01) ==
LOC: CT 08:55
DX: C34.92 Malignant neoplasm of unspecified part of left bronchus or lung (principal); I62.9 Nontraumatic intracranial hemorrhage, unspecified; M47.894 Other spondylosis, thoracic region; I12.9 Hypertensive chronic kidney disease with stage 1 through stage 4 chronic kidney disease, or unspecified chronic kidney disease; N18.3 Chronic kidney disease, stage 3 (moderate); E78.5 Hyperlipidemia, unspecified; J44.9 Chronic obstructive pulmonary disease, unspecified; Z87.891 Personal history of nicotine dependence
CPT/HCPCS: 71250; 74176; Q9966

== ENCOUNTER → 2017-12-25 | Outpatient (CLI) | payer MEDICARE, OTHER ==
[2017-05-10 10:48] VITALS: BP 120/70
[~2017-12-25] MED LIST changes: +ACET250T2 PO; +ACET325T9 PO; +ACET500C15 PO; +ASPI-630 PO; +ATOR20TA58 PO; +BRIM5DRO3 EACHEYE; +BUDE10.2 IH; +CALC200T3 PO; +CHOL10003 PO; +CHOL200044 PO; +CIPR250T PO; +CLOT15CR3 TP; +COD1CAPS2 PO; -CONTRAST GIVEN. MC; +DOCU-109 PO; +FAMO-63 PO; +GARL100T PO; +GING250C PO; +Hydrocodone/Acetaminophen PO; +IBUP-1060 PO; -IOHEXOL 240 MG/ML 50ML VIAL. PO; +LATA2.5D3 EACHEYE; +LOSA50TA7 PO; +MAGIC MOUTHWASH; +NAPR220C4 PO; +PANT40TA3 PO; +PEMB100V IV; +PROM5SYR2 PO; +SODI100G DT; +WHEA1POW8 PO
--- NOTE | 2017-12-25 16:44 | RAD ---
EXAM: Temporal bone CT without contrast. HISTORY: Lesion within left external auditory canal. TECHNIQUE: High-resolution computed tomographic images of the temporal bones were obtained without contrast. *One or more of the following individualized dose reduction techniques were utilized for this examination: 1. Automated exposure control. 2. Adjustment of the mA and/or kV according to patient size. 3. Use of iterative reconstruction technique. COMPARISON: MRI dated 05/09/[address] dated 05/08/2017. FINDINGS: The mastoid air cells are clear. The external auditory canals are clear. The tympanic membranes and ossicular chains appear intact. The bony labyrinths are unremarkable. There is no evidence of dehiscence. The temporomandibular joints are intact. There are small mucous retention cyst within the right sphenoid sinus and left maxillary sinus. There are multiple dental restorations and missing teeth. There is evidence of lens surgery. No calvarial lesion is seen. There is no mass effect or midline shift. There is no hydrocephalus. IMPRESSION: 1. No findings correlate with a mass within the left external auditory canal. The temporal bones are relatively unremarkable. 2. No acute finding. Electronically signed by: Juhi Garnica MD (12/25/2017 4:40 PM) [id number]
== END | disposition home or self-care (01) ==
LOC: CT 14:56
PROVIDERS: ATTEND Otolaryngology
DX: J34.1 Cyst and mucocele of nose and nasal sinus (principal); H61.892 Other specified disorders of left external ear; Z91.89 Other specified personal risk factors, not elsewhere classified
CPT/HCPCS: 70450

== ENCOUNTER → 2018-01-15 | Outpatient (CLI) | payer MEDICARE, OTHER ==
[2017-05-10 10:48] VITALS: BP 120/70
[~2018-01-15] MED LIST changes: +PRED50TA PO; +PROAIR HFA8.5 GM INH
--- NOTE | 2018-01-15 18:00 | RAD ---
Chest, 2 views, 01/15/2018: HISTORY: Productive cough, cold Comparison is made to a study from 05/08/2017. The heart size is normal. There is calcific plaquing of the aorta. No pulmonary infiltrate is seen. There is no evidence of pleural fluid. A surgical plate and screws is evident in the lower cervical spine. There are mild scattered degenerative changes in the spine. IMPRESSION: No acute cardiopulmonary abnormality is detected. Electronically signed by: Todd Prieto MD (01/15/2018 5:57 PM) [facility]
== END | disposition home or self-care (01) ==
LOC: RAD 12:50
PROVIDERS: ATTEND Pediatrics
DX: J44.1 Chronic obstructive pulmonary disease with (acute) exacerbation (principal)
CPT/HCPCS: 71046

== ENCOUNTER 2018-01-22 16:10 | Emergency (ER) | payer MEDICARE, OTHER ==
[~2018-01-22] VITALS: Ht 180.3 cm; Wt 72.6 kg
[~2018-01-22 16:10] MED LIST changes: -PRED50TA PO; -PROAIR HFA8.5 GM INH
[2018-01-22] MEDS ORDERED: DEXAMETHASONE SOD PHOS 20 MG/5 ML VIAL. IV ONE (17:45)
[2018-01-22] MEDS ORDERED: ALBUTEROL SULFATE 2.5 MG/3 ML NEBU. NEB ONE (17:45)
[2018-01-22 18:06] LABS: BASO % 0 % (0-3); EOS # 0.3 x10^3/uL (0.0-0.7); EOS % 4 % (0-3); HEMATOCRIT 37.6 % (39.0-53.0); HEMOGLOBIN 13.1 g/dL (13.0-17.5); LYMPH # 1.4 x10^3/uL (1.0-4.8); LYMPH % 22 % (24-48); MEAN CORPUSCULAR HEMOGLOBIN 31 pg (25-35); MEAN CORPUSCULAR HGB CONC 35 g/dL (31-37); MEAN CORPUSCULAR VOLUME 90 fL (79-100); MONO # 0.8 x10^3/uL (0.0-1.1); MONO % 12 % (0-9); NEUT % 62 % (31-73); PLATELET COUNT 171 x10^3/uL (140-400); RED BLOOD COUNT 4.16 x10^6/uL (4.30-5.70); RED CELL DISTRIBUTION WIDTH 13.3 % (11.5-14.5); WHITE BLOOD COUNT 6.5 x10^3/uL (4.0-11.0)
--- NOTE | 2018-01-22 18:14 | PHYS DOC ---
Past Medical History Past Medical History: CAD, Cancer, COPD, GERD, High Cholesterol, Hypertension Additional Past Medical Histor: cervical pain, bladder CA, Lung CA, Liver CA. Past Surgical History: Cervical Fusion Additional Past Surgical Histo: bladder surgery due to CA. Alcohol Use: None Drug Use: None Adult General Chief Complaint Chief Complaint: COUGH HPI HPI Patient is a 82 year old AA male who presents to the ER with complaints of a productive cough for the last 2 weeks. He states that the VETERINARY PHARMACOLOGIST from his doctor's office sent him to the ER to make sure he doesn't have pneumonia. Pt states that 2 weeks ago he was given a 5 day prescription for ampicillin and then last week he received a shot in the office and a z-tegan. At first the sputum he coughed up was yellow and now it is white. In addition, pt reports nausea and pain with coughing. He states he has a hx of vertigo and has felt some dizziness , no more than the normal. Pt reports a hx of COPD, lung CA, AK, CAD, liver CA, HTN, and vertigo. He took a 81 mg ASA this morning. Pt denies any fever, vomiting, abdominal pain, or body aches. Review of Systems Review of Systems Constitutional: Denies fever or chills [] Eyes: Denies change in visual acuity, redness, or eye pain [] HENT: Denies ear pain or sore throat; reports nasal congestion [] Respiratory: Reports productive cough for 2 weeks, shortness of breath, and wheezing Cardiovascular: Substernal chest pain with cough only, denies swelling in extremities or palpitations GI: Denies abdominal pain, or vomiting; reports nausea with coughing and one episode of loose stool today. Musculoskeletal: Denies back pain or joint pain [] Integument: Denies rash or skin lesions [] Neurologic: Denies headache, focal weakness or sensory changes [] All other systems were reviewed and found to be within normal limits, except as documented in this note. Current Medications Current Medications Current Medications Medications (Trade) Dose Ordered Sig/Norma Start Time Stop Time Status Last Admin Dose Admin Albuterol Sulfate (Ventolin Neb Soln) 2.5 mg 1X ONCE 01/22/18 17:45 01/22/18 17:55 DC 01/22/18 18:01 2.5 MG Dexamethasone Sodium Phosphate (Decadron) 10 mg 1X ONCE 01/22/18 17:45 01/22/18 17:55 DC Allergies Allergies Allergies Coded Allergies Type Severity Reaction Last Updated Verified Sulfa (Sulfonamide Antibiotics) Allergy Intermediate 06/29/14 Yes doxycycline Allergy Intermediate 03/20/16 Yes Physical Exam Physical Exam Constitutional: Well developed, well nourished, no acute distress, non-toxic appearance. [] HENT: Normocephalic, atraumatic, bilateral external ears normal, oropharynx moist, cobblestone appearance of posterior pharynx with clear postnasal drainage , no oral exudates, nose normal. [] Eyes: PERRLA, conjunctiva normal, no discharge. [] Neck: Normal range of motion, no tenderness, supple, no stridor. [] Cardiovascular:Heart rate regular rhythm, no murmur [] Lungs & Thorax: Bilateral breath sounds expiratory wheezes throughout Skin: Warm, dry, no erythema, no rash. [] Back: No tenderness Extremities: No cyanosis, no clubbing, ROM intact, no edema. [] Neurologic: Alert and oriented X 3, normal motor function, normal sensory function, no focal deficits noted. [] Psychologic: Affect normal, judgement normal, mood normal. [] Current Patient Data Vital Signs Vital Signs Date Time Temp Pulse Resp B/P (MAP) Pulse Ox O2 Delivery O2 Flow Rate FiO2 01/22/18 18:02 Room Air 01/22/18 17:45 98.1 91 22 169/83 (111) 96 98.1 Lab Values Laboratory Tests Test 01/22/18 18:00 White Blood Count 6.5 x10^3/uL (4.0-11.0) Red Blood Count 4.16 x10^6/uL (4.30-5.70) L Hemoglobin 13.1 g/dL (13.0-17.5) Hematocrit 37.6 % (39.0-53.0) L Mean Corpuscular Volume 90 fL (79-100) Mean Corpuscular Hemoglobin 31 pg (25-35) Mean Corpuscular Hemoglobin Concent 35 g/dL (31-37) Red Cell Distribution Width 13.3 % (11.5-14.5) Platelet Count 171 x10^3/uL (140-400) Neutrophils (%) (Auto) 62 % (31-73) Lymphocytes (%) (Auto) 22 % (24-48) L Monocytes (%) (Auto) 12 % (0-9) H Eosinophils (%) (Auto) 4 % (0-3) H Basophils (%) (Auto) 0 % (0-3) Neutrophils # (Auto) 4.0 x10^3uL (1.8-7.7) Lymphocytes # (Auto) 1.4 x10^3/uL (1.0-4.8) Monocytes # (Auto) 0.8 x10^3/uL (0.0-1.1) Eosinophils # (Auto) 0.3 x10^3/uL (0.0-0.7) Basophils # (Auto) 0.0 x10^3/uL (0.0-0.2) Sodium Level 144 mmol/L (136-145) Potassium Level 3.9 mmol/L (3.5-5.1) Chloride Level 106 mmol/L (98-107) Carbon Dioxide Level 29 mmol/L (21-32) Anion Gap 9 (6-14) Blood Urea Nitrogen 17 mg/dL (8-26) Creatinine 1.3 mg/dL (0.7-1.3) Estimated GFR (Cockcroft-Gault) 63.6 BUN/Creatinine Ratio 13 (6-20) Glucose Level 96 mg/dL (70-99) Calcium Level 9.1 mg/dL (8.5-10.1) Total Bilirubin 0.9 mg/dL (0.2-1.0) Aspartate Amino Transferase (AST) 18 U/L (15-37) Alanine Aminotransferase (ALT) 25 U/L (16-63) Alkaline Phosphatase 59 U/L (46-116) Troponin I Quantitative < 0.017 ng/mL (0.000-0.055) YX-Cyn-L-Type Natriuretic Peptide 82 pg/mL (0-449) Total Protein 7.2 g/dL (6.4-8.2) Albumin 3.7 g/dL (3.4-5.0) Albumin/Globulin Ratio 1.1 (1.0-1.7) Laboratory Tests 01/22/18 18:00 Laboratory Tests 01/22/18 18:00 EKG EKG Sinus rhythm no STEMI read by Dr. García[] Radiology/Procedures Radiology/Procedures CXR negative for any acute findings or infiltrates read by Dr. García[] Course & Med Decision Making Course & Med Decision Making Pertinent Labs and Imaging studies reviewed. (See chart for details) dx: COPD exacerbation Ddx: CHF, pneumonia, ACS Patient was given an albuterol treatment in the emergency department, lung sounds were clear in all paiz and patient reported feeling better following breathing treatment. Patient was given 10 mg of IV Decadron in the department. CXR was negative for any acute findings. Rx for albuterol MDI and prednisone written. Pt instructed to avoid exposure to airway irritants. Follow up with PCP on Friday, return to ER if symptoms worsen. [] Dragon Disclaimer Dragon Disclaimer This electronic medical record was generated, in whole or in part, using a voice recognition dictation system. Departure Departure Impression: Primary Impression: COPD (chronic obstructive pulmonary disease) with acute bronchitis Disposition: HOME, SELF-CARE Condition: STABLE Referrals: ANDRA MATIAS VETERINARY PHARMACOLOGIST (PCP) Patient Instructions: Chronic Obstructive Pulmonary Disease Exacerbation, Easy- to-Read Additional Instructions: Fill prescription(s) and use as directed. Cool mist humidifier in room at bedtime. Tylenol or ibuprofen prn pain/fever. Increase clear fluids.Avoid triggers such as smoke, fragrance, dust, and pollen. Follow-up with your primary care doctor on Friday, return to the emergency room if your symptoms worsen. Scripts Albuterol Sulfate (PROAIR HFA INHALER) 8.5 Gm Hfa.aer.ad 1-2 PUFF INH PRN Q4-6HRS PRN for SHORTNESS OF BREATH, #1 INHALER 0 Refills Prov: SAVAGE HU [employer]TENSION SERVICE SPECIALIST IN CHARGE 01/22/18 Prednisone (PREDNISONE) 50 Mg Tablet 1 TAB PO DAILY, #5 TAB start this medication on 01/23/18 Prov: SAVAGE HU EXTENSION SERVICE SPECIALIST IN CHARGE 01/22/18 SAVAGE HU EXTENSION SERVICE SPECIALIST IN CHARGE Jan 22, 2018 18:13
[2018-01-22 18:19] LABS: CALCIUM 9.1 mg/dL (8.5-10.1); CREATININE 1.3 mg/dL (0.7-1.3); GFR 63.6; POTASSIUM 3.9 mmol/L (3.5-5.1)
[2018-01-22 18:24] LABS: ALBUMIN 3.7 g/dL (3.4-5.0); ALBUMIN/GLOBULIN RATIO 1.1 (1.0-1.7); TOTAL BILIRUBIN 0.9 mg/dL (0.2-1.0); TOTAL PROTEIN 7.2 g/dL (6.4-8.2)
--- NOTE | 2018-01-22 18:44 | RAD ---
EXAM: PA and Lateral Views of the Chest DATE: 01/22/2018 5:45 PM INDICATION: ER PATIENT. PRODUCTIVE COUGH WITH WHITE FROTHY SPUTUM X1 MONTH. Hx HTN, COPD, CAD, CARDIAC STENT X1. PRIOR XRAY. COMPARISON: No Prior FINDINGS: The heart is not enlarged. Mediastinal and hilar contours are normal. Atherosclerotic calcifications of aorta are seen. No focal parenchymal airspace opacity. No pleural effusion or pneumothorax. Lower cervical spine anterior fusion hardware is partially profiled. Degenerative changes of the spine are seen at multiple levels. IMPRESSION: 1. No radiographic evidence for acute cardiopulmonary process. Electronically signed by: Issac Parikh MD (01/22/2018 6:41 PM) [id number]
[2018-01-22] MEDS ORDERED: PROAIR HFA8.5 GM INH (18:57)
[2018-01-22] MEDS ORDERED: PRED50TA PO (18:57)
[2018-01-22 19:06] VITALS: BP 157/86
--- NOTE | 2018-01-23 06:34 | EKG ---
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
== END 2018-01-22 19:15 | disposition home or self-care (01) ==
LOC: ER 16:10
DX: J20.9 Acute bronchitis, unspecified (principal); J44.0 Chronic obstructive pulmonary disease with (acute) lower respiratory infection; I25.10 Atherosclerotic heart disease of native coronary artery without angina pectoris; K21.9 Gastro-esophageal reflux disease without esophagitis; E78.00 Pure hypercholesterolemia, unspecified; I10 Essential (primary) hypertension; Z88.2 Allergy status to sulfonamides; Z88.1 Allergy status to other antibiotic agents
CPT/HCPCS: 36415; 71046; 80053; 83880; 84484; 85025; 93005; 94640; 96374; 99285; J1100; J7613

== ENCOUNTER → 2018-02-04 | Outpatient (CLI) | payer MEDICARE, OTHER ==
[2018-01-22 19:06] VITALS: BP 157/86
[~2018-02-04] MED LIST changes: +PRED50TA PO; +PROAIR HFA8.5 GM INH
--- NOTE | 2018-02-04 09:12 | RAD ---
CT CHEST ABDOMEN PELVIS WO Indication: Left lung adenocarcinoma Technique: Noncontrast CT imaging was performed of the chest, abdomen, pelvis, multiplanar reconstruction images submitted. One or more of the following individualized dose reduction techniques were utilized for this examination: 1. Automated exposure control 2. Adjustment of the mA and/or kV according to patient size 3. Use of iterative reconstruction technique. Comparison: October 22, 2017; February 25, 2017 CHEST: Findings: There is emphysema. There is similar mild reticular density of the left lower lobe, tiny focus of adjacent nodularity about 0.5 cm axial image 30 series 2 similar. There is no new pulmonary nodularity, pleural effusion, pneumothorax, infiltrate, suspicious pulmonary nodularity. There is slightly increased minimal pericardial fluid. There is coronary calcification. Thoracic aortic caliber is within normal limits. There is no new significant lymphadenopathy of the chest. IMPRESSION: 1. Mild reticular density of the left lower lobe with adjacent small focus of nodularity is unchanged, no new suspicious pulmonary nodularity or chest lymphadenopathy. 2. Minimal pericardial fluid is somewhat greater. 3. There is emphysema. CT abdomen pelvis: Evaluation of abdominal visceral organs is limited without intravenous contrast, no new obvious focal abnormality liver, spleen, pancreas. There is similar appearance of the adrenal glands, mild fullness of the left.Gallbladder is present without obvious intraluminal abnormality by CT. Evaluation of bowel is limited without oral contrast administered significant bowel dilatation, free air, free fluid. There is no hydronephrosis or renal calculus. There is distention of urinary bladder. There is stable oblong fluid collection in the right pelvis. There is retained stool greater in the rectum. There is multilevel lumbar degenerative disc disease and facet degenerative change as well as spondylosis and spinal stenosis greatest L3-4 and L4-5. There is also multilevel lumbar neural foramina compromise. Small sclerotic focus of the central sacrum at S2 is unchanged. IMPRESSION: 1. There is no new evidence of metastatic disease to the abdomen or pelvis. 2. There is distention of urinary bladder. Electronically signed by: Amilcar Loza MD (02/04/2018 9:09 AM) [id number]
== END | disposition home or self-care (01) ==
LOC: CT 07:47
PROVIDERS: ATTEND Internal Medicine Hematology & Oncology
DX: C34.92 Malignant neoplasm of unspecified part of left bronchus or lung (principal); J43.8 Other emphysema; M48.061 Spinal stenosis, lumbar region without neurogenic claudication; M51.36 Other intervertebral disc degeneration, lumbar region; M47.896 Other spondylosis, lumbar region; N32.89 Other specified disorders of bladder
CPT/HCPCS: 71250; 74176

== ENCOUNTER → 2018-05-05 | Outpatient (CLI) | payer MEDICARE, OTHER ==
[~2018-05-05] MED LIST changes: +ALBU2.5V8 INH; +LOSA-73 PO; -LOSA50TA7 PO; -PROAIR HFA8.5 GM INH
--- NOTE | 2018-05-05 15:15 | RAD ---
CT of the abdomen and pelvis without contrast, 05/05/2018: History: Abdominal distention, previous lung cancer Noncontrast scans were obtained and compared to a study from 02/04/2018. There is calcific plaquing of the thoracic aorta without evidence of aneurysm. Several coronary artery calcifications are noted. No mediastinal adenopathy is seen. A small amount of pericardial fluid is present, similar to that seen on the previous exam. There is a calcified granuloma in the right lower lobe. Minimal linear parenchymal opacities posteriorly in the left lower lobe are unchanged and most likely represent scarring. There is minimal chronic atelectasis or scarring along the inferior aspect of the left oblique fissure. No new pulmonary abnormality is seen. There is no evidence of pleural fluid. A small cyst is again noted inferiorly in the right lobe of the liver. The unopacified liver is otherwise unremarkable. No gallbladder abnormality is seen. The pancreas is unremarkable. The spleen is of normal size. The kidneys show no evidence of obstruction. Aortoiliac calcific plaquing is present without evidence of aneurysm. No abdominal or pelvic adenopathy is seen. 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 There are scattered collections of stool in the colon. The colon is not dilated. There are mildly dilated dilated gas-filled loops of what appear to be small bowel in the anterior aspect of the upper abdomen. There are surgical sutures related to a bowel loop in the anterior aspect of the pelvis on the left. This probably represents a small bowel loop. No free fluid or free air is evident in the abdomen or pelvis. Moderate scattered degenerative changes are again noted in the spine. There is an unchanged small sclerotic focus at the S2 level near the midline. Postsurgical changes are noted in the lower cervical spine. IMPRESSION: 1. No specific evidence of metastatic disease in the chest, abdomen or pelvis. 2. Mild gaseous distention of small bowel loops in the anterior aspect of the upper abdomen may represent an ileus or chronic partial small bowel obstruction due to an adhesion or internal hernia. 3. Additional stable chronic findings as described above. PQRS Compliance Statement: One or more of the following individualized dose reduction techniques were utilized for this examination: 1. Automated exposure control 2. Adjustment of the mA and/or kV according to patient size 3. Use of iterative reconstruction technique
== END | disposition home or self-care (01) ==
LOC: CT 09:39
PROVIDERS: ATTEND Internal Medicine Hematology & Oncology
DX: C34.92 Malignant neoplasm of unspecified part of left bronchus or lung (principal); R14.0 Abdominal distension (gaseous); K76.89 Other specified diseases of liver; N32.89 Other specified disorders of bladder
CPT/HCPCS: 71250; 74176

== ENCOUNTER 2018-06-01 18:12 | Emergency (ER) | payer MEDICARE, OTHER ==
[~2018-06-01] VITALS: Ht 180.3 cm; Wt 72.6 kg
--- NOTE | 2018-06-01 19:34 | PHYS DOC ---
Past Medical History Past Medical History: CAD, Cancer, COPD, GERD, High Cholesterol, Hypertension Additional Past Medical Histor: cervical pain, bladder CA, Lung CA, Liver CA. Past Surgical History: Cervical Fusion Additional Past Surgical Histo: bladder surgery due to CA. Alcohol Use: None Drug Use: None Adult General Chief Complaint Chief Complaint: HYPERTENSION HPI HPI Patient is a 83 year old male the past medical history hypertension presents for evaluation of high blood pressure. Patient is currently on losartan 50 mg daily. Patient has noted over the last several weeks his blood pressure eating and 170 systolic. Patient was evaluated by primary care physician and advised to increase his losartan 50 mg from 1 tablet to 2 tablets daily. Patient increased his losartan to 2 tabs daily as directed by his primary care physician and started to feel " abnormal". He states shortly after he received a notice from his pharmacy stating that his losartan 50 mg tablets were on recall by the monitor worker. Since receiving this letter and feeling abnormal patient states he went back to his original doses of 1 tablet daily. Earlier today patient and his blood pressure noted to be 179 systolic. He states he's had associated blurry vision on and off. He also states he's had some acid reflux type of discomfort in his chest. Patient also states his blood pressure is been running low around 130s systolic. This occurs after taking aspirin. Patient also advised me today he received in the mail his new prescription of losartan 100 mg tablets. Patient states he has not noted the new prescription. Review of Systems Review of Systems Review of systems: Constitutional symptoms- No fever, no chills. Eyes- No Discharge, No Visual Loss, Respiratory symptoms- No shortness of breath, No wheezing, No Dyspnea on Exertion Cardiovascular Systems; No chest pain.No Palpitations, No syncope Gastrointestinal symptoms: NO abdominal pain, no nausea, no vomiting or diarrhea. Genitourinary symptoms: No dysuria. No vaginal bleeding. Musculoskeletal symptoms: No back pain or extremity pain. NEUROLOGICAL Symptoms: No headache, no generalized weakness; No focal Weakness, All other systems were reviewed and found to be within normal limits, except as documented in this note. Allergies Allergies Allergies Coded Allergies Type Severity Reaction Last Updated Verified Sulfa (Sulfonamide Antibiotics) Allergy Intermediate 06/29/14 Yes doxycycline Allergy Intermediate 03/20/16 Yes Physical Exam Physical Exam Constitutional: Well developed, well nourished, no acute distress, non-toxic appearance. [] HENT: Normocephalic, atraumatic, bilateral external ears normal, oropharynx moist, no oral exudates, nose normal. [] Eyes: PERRLA, EOMI, conjunctiva normal, no discharge. [] Neck: Normal range of motion, no tenderness, supple, no stridor. [] Cardiovascular:Heart rate regular rhythm, no murmur [] Lungs & Thorax: Bilateral breath sounds clear to auscultation [] Abdomen: Bowel sounds normal, soft, no tenderness, no masses, no pulsatile masses. [] Skin: Warm, dry, no erythema, no rash. [] Back: No tenderness, no CVA tenderness. [] Extremities: No tenderness, no cyanosis, no clubbing, ROM intact, no edema. [] Neurologic: Alert and oriented X 3, normal motor function, normal sensory function, no focal deficits noted. [] Psychologic: Affect normal, judgement normal, mood normal. [] Current Patient Data Vital Signs Vital Signs Date Time Temp Pulse Resp B/P (MAP) Pulse Ox O2 Delivery O2 Flow Rate FiO2 06/01/18 19:00 98.3 82 20 170/93 (118) 98 Room Air 98.3 Lab Values Laboratory Tests Test 06/01/18 19:35 White Blood Count 5.7 x10^3/uL (4.0-11.0) Red Blood Count 4.13 x10^6/uL (4.30-5.70) L Hemoglobin 12.7 g/dL (13.0-17.5) L Hematocrit 37.7 % (39.0-53.0) L Mean Corpuscular Volume 91 fL (79-100) Mean Corpuscular Hemoglobin 31 pg (25-35) Mean Corpuscular Hemoglobin Concent 34 g/dL (31-37) Red Cell Distribution Width 13.4 % (11.5-14.5) Platelet Count 167 x10^3/uL (140-400) Neutrophils (%) (Auto) 66 % (31-73) Lymphocytes (%) (Auto) 16 % (24-48) L Monocytes (%) (Auto) 15 % (0-9) H Eosinophils (%) (Auto) 3 % (0-3) Basophils (%) (Auto) 0 % (0-3) Neutrophils # (Auto) 3.8 x10^3uL (1.8-7.7) Lymphocytes # (Auto) 0.9 x10^3/uL (1.0-4.8) L Monocytes # (Auto) 0.8 x10^3/uL (0.0-1.1) Eosinophils # (Auto) 0.2 x10^3/uL (0.0-0.7) Basophils # (Auto) 0.0 x10^3/uL (0.0-0.2) Sodium Level 142 mmol/L (136-145) Potassium Level 3.9 mmol/L (3.5-5.1) Chloride Level 104 mmol/L (98-107) Carbon Dioxide Level 26 mmol/L (21-32) Anion Gap 12 (6-14) Blood Urea Nitrogen 17 mg/dL (8-26) Creatinine 1.2 mg/dL (0.7-1.3) Estimated GFR (Cockcroft-Gault) 69.6 BUN/Creatinine Ratio 14 (6-20) Glucose Level 107 mg/dL (70-99) H Calcium Level 9.1 mg/dL (8.5-10.1) Total Bilirubin 1.4 mg/dL (0.2-1.0) H Aspartate Amino Transferase (AST) 20 U/L (15-37) Alanine Aminotransferase (ALT) 21 U/L (16-63) Alkaline Phosphatase 60 U/L (46-116) Troponin I Quantitative < 0.017 ng/mL (0.000-0.055) Total Protein 6.9 g/dL (6.4-8.2) Albumin 3.5 g/dL (3.4-5.0) Albumin/Globulin Ratio 1.0 (1.0-1.7) Laboratory Tests 06/01/18 19:35 Laboratory Tests 06/01/18 19:35 EKG EKG EKG time 1928 heart rate [address] elevation no ST depression no acute NM[] Radiology/Procedures Radiology/Procedures [] Course & Med Decision Making Course & Med Decision Making Pertinent Labs and Imaging studies reviewed. (See chart for details) []Patient was evaluated for chief complaint. Workup consisted of laboratory analysis and EKG. Results reviewed and discussed with patient and family. During my repeat examination patient's repeat blood pressure was 140 systolic. Advised the patient to follow up with his primary care physician. Advised patient to stop taking losartan 50 mg tablets that are currently under recall. Patient to bottle of losartan 100 mg tablets. Advised patient he can take half a tablet to stay at 50 mg or take that complete tablet 100 mg as his primary care physician prescribed him. At this time I do not believe any other workup is indicated. Patient will be discharged home with instruction to follow up with primary care physician. Hafsa Disclaimer Dragon Disclaimer This electronic medical record was generated, in whole or in part, using a voice recognition dictation system. Departure Departure Impression: Primary Impression: Hypertension Disposition: 01 HOME, SELF-CARE Admitting Physician: Other (Primary Care Doctor) Condition: STABLE Referrals: ANDRA MATIAS [facility] (PCP) Patient Instructions: Hypertension JEFFREY FELICIANO I DO Jun 01, 2018 19:34
[2018-06-01 19:47] LABS: BASO % 0 % (0-3); EOS # 0.2 x10^3/uL (0.0-0.7); EOS % 3 % (0-3); HEMATOCRIT 37.7 % (39.0-53.0); HEMOGLOBIN 12.7 g/dL (13.0-17.5); LYMPH # 0.9 x10^3/uL (1.0-4.8); LYMPH % 16 % (24-48); MEAN CORPUSCULAR HEMOGLOBIN 31 pg (25-35); MEAN CORPUSCULAR HGB CONC 34 g/dL (31-37); MEAN CORPUSCULAR VOLUME 91 fL (79-100); MONO # 0.8 x10^3/uL (0.0-1.1); MONO % 15 % (0-9); NEUT # 3.8 x10^3uL (1.8-7.7); NEUT % 66 % (31-73); PLATELET COUNT 167 x10^3/uL (140-400); RED BLOOD COUNT 4.13 x10^6/uL (4.30-5.70); RED CELL DISTRIBUTION WIDTH 13.4 % (11.5-14.5); WHITE BLOOD COUNT 5.7 x10^3/uL (4.0-11.0)
[2018-06-01 19:58] LABS: CALCIUM 9.1 mg/dL (8.5-10.1); CREATININE 1.2 mg/dL (0.7-1.3); GFR 69.6; POTASSIUM 3.9 mmol/L (3.5-5.1)
[2018-06-01 20:03] LABS: ALBUMIN 3.5 g/dL (3.4-5.0); TOTAL BILIRUBIN 1.4 mg/dL (0.2-1.0); TOTAL PROTEIN 6.9 g/dL (6.4-8.2)
[2018-06-01 20:32] VITALS: BP 158/89
--- NOTE | 2018-06-01 20:46 | EKG ---
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
== END 2018-06-01 20:57 | disposition home or self-care (01) ==
LOC: ER 18:12
DX: I10 Essential (primary) hypertension (principal); K21.9 Gastro-esophageal reflux disease without esophagitis; E78.00 Pure hypercholesterolemia, unspecified; J44.9 Chronic obstructive pulmonary disease, unspecified; I25.10 Atherosclerotic heart disease of native coronary artery without angina pectoris; Z98.1 Arthrodesis status; Z88.1 Allergy status to other antibiotic agents; Z88.2 Allergy status to sulfonamides
CPT/HCPCS: 36415; 80053; 84484; 85025; 93005; 99284-25

== ENCOUNTER → 2018-07-29 | Outpatient (CLI) | payer MEDICARE, OTHER ==
[~2018-07-29] MED LIST changes: +CONTRAST GIVEN. MC PRN; +IOHEXOL 240 MG/ML 50ML VIAL. PO ONE
--- NOTE | 2018-07-29 16:05 | RAD ---
CT CHEST ABDOMEN PELVIS WO Indication: Lung carcinoma lung. Hypodense lesion at the right lobe of liver is stable. Too small to characterize but may represent a cyst. Spleen is not enlarged. No peripancreatic inflammatory change or fluid. The adrenal glands demonstrate a nodular morphology Exposure: One or more of the following individualized dose reduction techniques were utilized for this examination: 1. Automated exposure control 2. Adjustment of the mA and/or kV according to patient size 3. Use of iterative reconstruction technique. Comparison: None are available. Technique: No intravenous contrast given. No oral contrast per request. Findings: Evaluation of solid viscera, bowel and vasculature is compromised by the noncontrast technique. COMPARISON: May 05, 2018. Chest: Aorta is mildly calcified, no evidence of aneurysm. No large thyroid lesion. Coronary artery calcification. No significant lymph node enlargement. Small pericardial effusion appears similar to prior study. No pleural effusion. Lungs appear clear without evidence of consolidation or mass lesion. There is a focal bullae at the posterior left lower lobe at the superior segment. There is mild linear markings around this may represent scarring. The trachea and central main stem bronchi are patent. Abdomen and pelvis: Multiple hypodense lesion at the right lobe of liver, too small to characterize, but may represent a cyst. No interval change. Spleen unremarkable. No peripancreatic fluid or inflammatory change. The adrenal glands demonstrate a slightly thickened nodular morphology. Small mass at the left adrenal gland measures 15 mm, stable since prior study. Measures -10 Hounsfield units, may represent benign adenoma. No evidence of urolithiasis or hydronephrosis. No obvious renal mass. No calcified gallstone. The aorta is mildly calcified, no evidence of aneurysm. No significant lymph node enlargement is identified. Mild distention of small bowel loops, finding which was also seen on the prior study although slightly less pronounced today. Moderate retained stool in the colon. No evidence of acute colitis. The appendix appears normal. No evidence of ascites or pneumoperitoneum. Deformity of the urinary bladder is again identified similar to the previous study. No evidence of urinary bladder wall thickening. Bones: Degenerative changes of the spine with stenosis. No evidence of aggressive bone destruction. Degenerative changes of both hips. There is a mild S-shaped thoracolumbar scoliosis. No evidence of destructive bone lesion. IMPRESSION: 1. No evidence of new metastatic disease in the chest abdomen or pelvis. 2. Small left adrenal nodule is stable, could represent a benign adenoma. 3. Mild distention of small bowel loops, similar but slightly improved as compared with the prior study. Electronically signed by: Shlomo Tinajero MD (07/29/2018 4:02 PM) [facility]
== END | disposition home or self-care (01) ==
LOC: CT 12:08
PROVIDERS: ATTEND Internal Medicine Hematology & Oncology
DX: C34.92 Malignant neoplasm of unspecified part of left bronchus or lung (principal); E27.8 Other specified disorders of adrenal gland; K63.89 Other specified diseases of intestine; I25.10 Atherosclerotic heart disease of native coronary artery without angina pectoris; I31.3 Pericardial effusion (noninflammatory); J43.8 Other emphysema; I70.0 Atherosclerosis of aorta; N32.89 Other specified disorders of bladder; M47.819 Spondylosis without myelopathy or radiculopathy, site unspecified; M48.00 Spinal stenosis, site unspecified; M16.0 Bilateral primary osteoarthritis of hip; M41.85 Other forms of scoliosis, thoracolumbar region; Z88.8 Allergy status to other drugs, medicaments and biological substances
CPT/HCPCS: 71250; 74176; Q9966

== ENCOUNTER → 2018-10-29 | Outpatient (CLI) | payer MEDICARE, OTHER ==
[~2018-10-29] MED LIST changes: -CONTRAST GIVEN. MC PRN; -PANT40TA3 PO; +PANT40TA77 PO
--- NOTE | 2018-10-29 12:11 | RAD ---
EXAM: CT Chest, Abdomen and Pelvis without IV contrast CLINICAL HISTORY: Lung cancer, follow-up COMPARISON: 07/29/2018 TECHNIQUE: Helical CT of the chest, abdomen and pelvis was performed without intravenous contrast. Axial, coronal and sagittal reformatted images were generated. ---PQRS compliance statement - One or more of the following individualized dose reduction techniques were utilized for this study: 1. Automated exposure control 2. Adjustment of the mA and/or kV according to patient size 3. Use of iterative reconstruction technique--- FINDINGS: Lack of intravenous contrast limits evaluation of solid organs, vasculature, and lymph nodes. Chest: Heart is not enlarged. Trace pericardial fluid may be physiologic. Coronary artery calcifications are seen. No pleural effusion or pneumothorax. Within the constraints of noncontrast examination, no mediastinal or hilar lymphadenopathy. No axillary lymphadenopathy. No suspicious lung nodule or mass. Minimal linear reticular opacities in the lung bases dependently likely scarring/atelectasis. Right lower lobe calcified granuloma is seen. Abdomen and Pelvis: Hypodense hepatic lesions are too small to accurately characterize but likely cystic, however stable. Spleen is unremarkable. Mild nodularity of the left adrenal gland is stable. Right adrenal gland is unremarkable. Pancreas is unremarkable. High-density material within the gallbladder likely sludge. No biliary ductal dilatation. No renal tract calculus. No focal renal lesion. Mild left hydronephrosis hydroureter. 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 Large volume colonic stool content is seen. No small or large bowel dilatation. Appendix is normal. No evidence for bowel obstruction. No abdominal or pelvic ascites. No abdominal or pelvic lymphadenopathy. Focal ectasia of the infrarenal aorta is grossly stable. Bones: Osseous structures are stable. Degenerative changes of the spine are seen IMPRESSION: 1. No thoracic, abdominal or pelvic lymphadenopathy. 2. No evidence for recurrent malignancy or metastasis. 3. Mild left hydronephrosis without obstructing calculus. This may be related to the bladder diverticulum/bladder deformity. Electronically signed by: Issac Parikh MD (10/29/2018 12:08 PM) [id number]
== END | disposition home or self-care (01) ==
LOC: CT 08:59
PROVIDERS: ATTEND Internal Medicine Hematology & Oncology
DX: C34.92 Malignant neoplasm of unspecified part of left bronchus or lung (principal); J98.4 Other disorders of lung; I25.10 Atherosclerotic heart disease of native coronary artery without angina pectoris; J84.10 Pulmonary fibrosis, unspecified; K76.89 Other specified diseases of liver; N13.30 Unspecified hydronephrosis; N13.4 Hydroureter; I77.819 Aortic ectasia, unspecified site; N32.89 Other specified disorders of bladder; Z88.1 Allergy status to other antibiotic agents; Z88.8 Allergy status to other drugs, medicaments and biological substances
CPT/HCPCS: 71250; 74176

== ENCOUNTER 2018-11-11 10:32 | Inpatient (IN) | payer MEDICARE, OTHER ==
[~2018-11-11] VITALS: Ht 180.3 cm; Wt 78.2 kg
[~2018-11-11 10:32] MED LIST changes: -IOHEXOL 240 MG/ML 50ML VIAL. PO ONE
[2018-11-11] MEDS ORDERED: IV NORMAL SALINE 1000ML BAG 1,000 ML IV SCH (11:01)
[2018-11-11 11:29] LABS: BASO % 1 % (0-3); EOS # 0.3 x10^3/uL (0.0-0.7); EOS % 4 % (0-3); HEMATOCRIT 40.3 % (39.0-53.0); HEMOGLOBIN 13.7 g/dL (13.0-17.5); LYMPH # 1.1 x10^3/uL (1.0-4.8); LYMPH % 19 % (24-48); MEAN CORPUSCULAR HEMOGLOBIN 31 pg (25-35); MEAN CORPUSCULAR HGB CONC 34 g/dL (31-37); MEAN CORPUSCULAR VOLUME 91 fL (79-100); MONO # 0.7 x10^3/uL (0.0-1.1); MONO % 11 % (0-9); NEUT % 66 % (31-73); PLATELET COUNT 175 x10^3/uL (140-400); RED BLOOD COUNT 4.45 x10^6/uL (4.30-5.70); RED CELL DISTRIBUTION WIDTH 13.5 % (11.5-14.5)
[2018-11-11 11:32] LABS: CREATININE 1.4 mg/dL (0.7-1.3); GFR 58.3; POTASSIUM 4.4 mmol/L (3.5-5.1)
[2018-11-11 11:38] LABS: ALBUMIN 3.9 g/dL (3.4-5.0); ALBUMIN/GLOBULIN RATIO 1.1 (1.0-1.7); PROTHROMBIN TIME PATIENT 12.4 SEC (11.7-14.0); TOTAL BILIRUBIN 1.1 mg/dL (0.2-1.0); TOTAL PROTEIN 7.4 g/dL (6.4-8.2)
--- NOTE | 2018-11-11 11:38 | PHYS DOC ---
Past Medical History Past Medical History: CAD, Cancer, COPD, GERD, High Cholesterol, Hypertension Additional Past Medical Histor: cervical pain, bladder CA, Lung CA, Liver CA. Past Surgical History: Cervical Fusion Additional Past Surgical Histo: bladder surgery due to CA. Alcohol Use: None Drug Use: None Adult General Chief Complaint Chief Complaint: CHEST PAIN HPI HPI Patient is a 83 year old male who presents with for the last 4 days he's had chest tightness, left chest pain and has been having to use his nebulizer because albuterol inhalers working. He has a history of COPD. Patient states he only uses the nebulizer when he had his epidural isn't working. Patient states the nebulizer makes him going to a coughing fit and this morning he went to cough and began gagging and having some dizziness. Patient states he also has left chest discomfort. Patient states his chest felt tight and he does not currently have any shortness of breath, dizziness. Patient states he's been coughing up some white mucus. Patient denies any weakness, fever, nausea, vomiting, [place] pain, visual changes. Patient states he has been having some blurred vision at times but thinks it might be due to the nebulizer albuterol because in the past he states this has happened. Patient takes a baby aspirin a day. Patient currently rates his pain a 0 out of 10. Patient has a history of CAD, COPD, cancer of the bladder, prostate, liver and lung, hypertension, high cholesterol, stents placed heart. Review of Systems Review of Systems Constitutional: Denies fever or chills [] Eyes: Denies change in visual acuity, redness, or eye pain [] HENT: Denies nasal congestion or sore throat [] Respiratory: cough or shortness of breath [] Cardiovascular: Chest tightness and left chest sharp pain GI: Denies abdominal pain, nausea, vomiting, bloody stools or diarrhea [] : Denies dysuria or hematuria [] Neurologic: Denies headache, focal weakness or sensory changes [] All other systems were reviewed and found to be within normal limits, except as documented in this note. Current Medications Current Medications Current Medications Medications (Trade) Dose Ordered Sig/Norma Start Time Stop Time Status Last Admin Dose Admin Aspirin (Juan Aspirin) 325 mg 1X ONCE 11/11/18 11:45 11/11/18 11:46 DC 11/11/18 11:23 325 MG Sodium Chloride 1,000 ml @ 1,000 mls/hr Q1H 11/11/18 11:01 11/11/18 12:00 DC 11/11/18 11:23 1,000 MLS/HR Allergies Allergies Allergies Coded Allergies Type Severity Reaction Last Updated Verified Sulfa (Sulfonamide Antibiotics) Allergy Intermediate 06/29/14 Yes doxycycline Allergy Intermediate 03/20/16 Yes Physical Exam Physical Exam Constitutional: Well developed, well nourished, no acute distress, non-toxic appearance. [] Cardiovascular:Heart rate regular rhythm, no murmur [] Lungs & Thorax: Bilateral upper breath sounds clear to auscultation, lower bilateral breath signs diminished [] Abdomen: Bowel sounds normal, soft, no tenderness, no masses, no pulsatile masses. [] Skin: Warm, dry, no erythema, no rash. [] Extremities: No tenderness, no cyanosis, no clubbing, ROM intact, no edema. [] Neurologic: Alert and oriented X 3, normal motor function, normal sensory function, no focal deficits noted. [] Current Patient Data Vital Signs Vital Signs Date Time Temp Pulse Resp B/P (MAP) Pulse Ox O2 Delivery O2 Flow Rate FiO2 11/11/18 11:17 85 16 151/86 (107) 97 Room Air 11/11/18 10:37 97.8 97.8 Lab Values Laboratory Tests Test 11/11/18 10:49 11/11/18 11:30 White Blood Count 6.0 x10^3/uL (4.0-11.0) Red Blood Count 4.45 x10^6/uL (4.30-5.70) Hemoglobin 13.7 g/dL (13.0-17.5) Hematocrit 40.3 % (39.0-53.0) Mean Corpuscular Volume 91 fL (79-100) Mean Corpuscular Hemoglobin 31 pg (25-35) Mean Corpuscular Hemoglobin Concent 34 g/dL (31-37) Red Cell Distribution Width 13.5 % (11.5-14.5) Platelet Count 175 x10^3/uL (140-400) Neutrophils (%) (Auto) 66 % (31-73) Lymphocytes (%) (Auto) 19 % (24-48) L Monocytes (%) (Auto) 11 % (0-9) H Eosinophils (%) (Auto) 4 % (0-3) H Basophils (%) (Auto) 1 % (0-3) Neutrophils # (Auto) 4.0 x10^3/uL (1.8-7.7) Lymphocytes # (Auto) 1.1 x10^3/uL (1.0-4.8) Monocytes # (Auto) 0.7 x10^3/uL (0.0-1.1) Eosinophils # (Auto) 0.3 x10^3/uL (0.0-0.7) Basophils # (Auto) 0.0 x10^3/uL (0.0-0.2) Prothrombin Time 12.4 SEC (11.7-14.0) Prothrombin Time INR 1.0 (0.8-1.1) Sodium Level 142 mmol/L (136-145) Potassium Level 4.4 mmol/L (3.5-5.1) Chloride Level 107 mmol/L (98-107) Carbon Dioxide Level 25 mmol/L (21-32) Anion Gap 10 (6-14) Blood Urea Nitrogen 17 mg/dL (8-26) Creatinine 1.4 mg/dL (0.7-1.3) H Estimated GFR (Cockcroft-Gault) 58.3 BUN/Creatinine Ratio 12 (6-20) Glucose Level 100 mg/dL (70-99) H Calcium Level 9.0 mg/dL (8.5-10.1) Total Bilirubin 1.1 mg/dL (0.2-1.0) H Aspartate Amino Transferase (AST) 22 U/L (15-37) Alanine Aminotransferase (ALT) 23 U/L (16-63) Alkaline Phosphatase 74 U/L (46-116) Troponin I Quantitative < 0.017 ng/mL (0.000-0.055) Total Protein 7.4 g/dL (6.4-8.2) Albumin 3.9 g/dL (3.4-5.0) Albumin/Globulin Ratio 1.1 (1.0-1.7) Urine Collection Type Unknown Urine Color Yellow Urine Clarity Cloudy Urine pH 7.0 Urine Specific [place] 1.010 Urine Protein Negative mg/dL (NEG-TRACE) Urine Glucose (UA) Negative mg/dL (NEG) Urine Ketones (Stick) Negative mg/dL (NEG) Urine Blood Negative (NEG) Urine Nitrite Negative (NEG) Urine Bilirubin Negative (NEG) Urine Urobilinogen Dipstick 0.2 mg/dL (0.2 mg/dL) Urine Leukocyte Esterase Negative (NEG) Urine RBC Occ /HPF (0-2) Urine WBC 5-10 /HPF (0-4) Urine Bacteria 0 /HPF (0-FEW) Laboratory Tests 11/11/18 10:49 Laboratory Tests 11/11/18 10:49 EKG EKG Sinus Rhythm and no STEMI[] Interpretation Time: [address] Pierce Radiology/Procedures Radiology/Procedures [] Impressions: [facility] [address] [place] [address] IMAGING REPORT Signed PATIENT: SAMARA MELVIN ACCOUNT: [id number] : 1935 LOCATION: ER AGE: 83 SEX: M EXAM STATUS: REG ER ORD. PHYSICIAN: TRACIE GENTILE APRN REASON: cough, chest tightness,pt states hx of COPD PROCEDURE: CHEST PA & LATERAL CHEST PA LATERAL CLINICAL INDICATION: Cough. Chest tightness. COMPARISON: None FINDINGS: Heart is normal in size. Lungs are hyperinflated. No focal consolidation. No pneumothorax or pleural effusion. Visualized bony thorax within normal limits. IMPRESSION: COPD. No acute pulmonary process. Electronically signed by: Urban Lazar DO (11/11/2018 11:36 AM) [facility] DICTATED and SIGNED BY: URBAN LAZAR DO DATE: 11/11/18 1136 Course & Med Decision Making Course & Med Decision Making Patient is a 83 year old male who presents with for the last 4 days he's had chest tightness, left chest pain and has been having to use his nebulizer because albuterol inhalers working. He has a history of COPD. Patient states he only uses the nebulizer when he had his epidural isn't working. Patient states the nebulizer makes him going to a coughing fit and this morning he went to cough and began gagging and having some dizziness. Patient states he also has left chest discomfort. Patient states his chest felt tight and he does not curre ntly have any shortness of breath, dizziness. Patient states he's been coughing up some white mucus. Patient denies any weakness, fever, nausea, vomiting, [place] pain, visual changes. Patient states he has been having some blurred vision at times but thinks it might be due to the nebulizer albuterol because in the past he states this has happened. Patient takes a baby aspirin a day. Patient currently rates his pain a 0 out of 10. Patient has a history of CAD, COPD, cancer of the bladder, prostate, liver and lung, hypertension, high cholesterol, stents placed heart. Patient states he currently has no symptoms that he has been having. Alert and oriented. PERRLA. No weaknesses and he is able to ambulate with steady gait. Skin pink warm and dry. Vital signs within normal limits. Is 96% on room air. Speaks in full clear sentences. Lungs are clear in upper lobes but diminished in lower lobes bilaterally. Abdomen soft and nontender. EKG shows sinus rhythm and no STEMI. Blood work unremarkable. Chest x-ray shows COPD. Patient to be admitted for chest pain. 1245: Has spoken to Dr. Brown and he stated to give the patient the option of either staying in the hospital following up with him. The patient states he like to stay in the hospital. I will consult cardiology and pulmonology for him. Dragon Disclaimer Dragon Disclaimer This electronic medical record was generated, in whole or in part, using a voice recognition dictation system. The HEART Score for CP Pts HEART Score for Chest Pain: HEART Score for Chest Pain Response (Comments) Value History Moderately Suspicious 1 ECG Normal 0 Age > 65 2 Risk Factors >3 Risk Factors or Hx CAD 2 Troponin < Normal Limit 0 Total 5 Risk Factors: Risk Factors: DM, Current or recent (<one month) smoker, HTN, HLP, family history of CAD, obesity. Risk Scores: Score 0 - 3: 2.5% MACE over next 6 weeks - Discharge Home Score 4 - 6: 20.3% MACE over next 6 weeks - Admit for Clinical Observation Score 7 - 10: 72.7% MACE over next 6 weeks - Early Invasive Strategies Departure Departure Impression: Primary Impression: Chest pain Additional Impression: Shortness of breath Disposition: ADMITTED INPATIENT Admitting Physician: Doug Brown Condition: STABLE Referrals: DOUG BROWN MD (PCP) Problem Qualifiers Primary Impression: Chest pain Chest pain type: unspecified Qualified Codes: R07.9 - Chest pain, unspecified BAFUS,TRACIE M NIP WRAPPER Nov 11, 2018 11:38
[2018-11-11 11:39] LABS: BILIRUBIN,URINE NEGATIVE (NEG); CLARITY,URINE CLOUDY; COLOR,URINE YELLOW; NITRITE,URINE NEGATIVE (NEG); PROTEIN,URINE NEGATIVE (NEG-TRACE); UROBILINOGEN,URINE 0.2 mg/dL (0.2 mg/dL)
[2018-11-11] MEDS ORDERED: ASPIRIN 325 MG TABLET PO ONE (11:45)
[2018-11-11 11:57] LABS: BACTERIA,URINE 0 /HPF (0-FEW); RBC,URINE OCC /HPF (0-2)
[2018-11-11] MEDS ORDERED: ACETAMINOPHEN 325 MG TABLET. PO PRN ×2 (13:00→18:00)
[2018-11-11] MEDS ORDERED: ONDANSETRON PF 4 MG/2 ML VIAL. IV PRN (13:00)
[2018-11-11] MEDS ORDERED: predniSONE 10 MG TABLET PO ONE (13:30)
--- NOTE | 2018-11-11 13:37 | EKG ---
[facility] [address] [place] [address] Test Date: 2018-11-11 Test Time: 10:37:58 Pat Name: SAMARA MELVIN Department: Room: 252 1 Gender: M Pest Control Service Technician: : 1935 Requested By: TRACIE GENTILE Order Number: [id number] Reading MD: Lopez Carpenter MD Measurements Intervals [place] Rate: 93 P: 36 [place]: 176 QRS: 20 QRSD: 98 T: 47 QT: 332 QTc: 415 Interpretive Statements SINUS RHYTHM Electronically Signed On 11-13-2018 15:39:21 CDT by Lopez Carpenter MD
[2018-11-11 14:15] VITALS: BP 170/88
[2018-11-11] MEDS: IPRATROPIUM BROMIDE 0.5 MG/2.5 ML NEBU. NEB SCH ×2 (16:00→19:29)
[2018-11-11] MEDS ORDERED: IPRATRPIUM/ALBUTEROL 0.5/2.5MG 3 ML NEBU. NEB SCH (16:00)
--- NOTE | 2018-11-11 16:37 | PDOC2 ---
CARDIAC CONSULT DATE OF CONSULT Date of Consult DATE: 11/11/18 TIME: 16:08 REASON FOR CONSULT Reason for Consult: Chest pain REFERRING PHYSICIAN Referring Physician: Billie SOURCE Source: Chart review, Patient HISTORY OF PRESENT ILLNESS HISTORY OF PRESENT ILLNESS This is a pleasant 83 yo male admitted for complains of chest pain and coughing. Reports that Friday she treated himself with nebulized prior to worship and s tarted having intractable coughing and was having midchest pressure after that. Smae thing happened today. This morning he got up and started coughing and this time had productive cough and his coughing was significant enough that it made him dizzy. No palpitations, nausea, or diaphoresis. Negative for PND or orthopnea. He has been complaint with his medications. No complains of fever or chills. He does have hx of GERD and takes honey and paula drink. No throat irritation. He does have SOA with exertion but no different from his baseline. PAST MEDICAL HISTORY Past Medical History Cardiovascular: CAD, HTN, Mitral valve stenosis, vasovagal syncope Pulmonary: COPD CENTRAL NERVOUS SYSTEM: Other (No pertinent history) GI: GERD Heme/Onc: Anemia NOS, Cancer (stage 4 lung CA) Hepatobiliary: No pertinent hx Psych: No pertinent hx Musculoskeletal: Osteoarthritis Rheumatologic: No pertinent hx Infectious disease: No pertinent hx ENT: No pertinent hx Renal/: Prostate Ca. Endocrine: No pertinent hx Dermatology: No pertinent hx PAST SURGICAL HISTORY Past Surgical History Hernia Repair, Other (PCI/stent placement, prostatectomy ) FAMILY HISTORY Family History: Coronary Artery Disease SOCIAL HISTORY Smoke: Quit ALCOHOL: none Drugs: None Lives: with Family CURRENT MEDICATIONS CURRENT MEDICATIONS Current Medications Medications (Trade) Dose Ordered Sig/Norma Route PRN Reason Start Time Stop Time Status Last Admin Dose Admin Aspirin (Juan Aspirin) 325 mg 1X ONCE PO 11/11/18 11:45 11/11/18 11:46 DC 11/11/18 11:23 Sodium Chloride 1,000 ml @ 1,000 mls/hr Q1H IV 11/11/18 11:01 11/11/18 12:00 DC 11/11/18 11:23 Prednisone (Prednisone) 50 mg 1X ONCE PO 11/11/18 13:30 11/11/18 13:31 DC 11/11/18 13:44 Ipratropium Bells (Atrovent) 0.5 mg RTQID NEB 11/11/18 16:00 8/21/19 16:00 ALLERGIES ALLERGIES: Coded Allergies: Sulfa (Sulfonamide Antibiotics) (Verified Allergy, Intermediate, 06/29/14) doxycycline (Verified Allergy, Intermediate, 03/20/16) ROS Review of System 14 point ROS evaluated with pertinent positives per HPI PHYSICAL EXAM General: Alert, Oriented X3, Cooperative, No acute distress HEENT: Atraumatic, Mucous membr. moist/pink Lungs: Other (diminished bases with excpiratory wheeze) Heart: Regular rate (SR), Normal S1, Normal S2, No murmurs Abdomen: Soft, No tenderness Extremities: No cyanosis, No edema Skin: No breakdown, No significant lesion Neuro: Normal speech, Sensation intact Psych/Mental Status: Mental status NL, Mood NL MUSCULOSKELETAL: Osteoarthritic changes both hands VITALS/I&O VITALS/I&O: Vital Signs Date Time Temp Pulse Resp B/P (MAP) Pulse Ox O2 Delivery O2 Flow Rate FiO2 11/11/18 16:02 98 Room Air 11/11/18 14:15 97.7 78 18 170/88 (115) 97.7 LABS Lab: Laboratory Tests Test 11/11/18 10:49 11/11/18 11:30 White Blood Count 6.0 x10^3/uL (4.0-11.0) Red Blood Count 4.45 x10^6/uL (4.30-5.70) Hemoglobin 13.7 g/dL (13.0-17.5) Hematocrit 40.3 % (39.0-53.0) Mean Corpuscular Volume 91 fL (79-100) Mean Corpuscular Hemoglobin 31 pg (25-35) Mean Corpuscular Hemoglobin Concent 34 g/dL (31-37) Red Cell Distribution Width 13.5 % (11.5-14.5) Platelet Count 175 x10^3/uL (140-400) Neutrophils (%) (Auto) 66 % (31-73) Lymphocytes (%) (Auto) 19 % (24-48) L Monocytes (%) (Auto) 11 % (0-9) H Eosinophils (%) (Auto) 4 % (0-3) H Basophils (%) (Auto) 1 % (0-3) Neutrophils # (Auto) 4.0 x10^3/uL (1.8-7.7) Lymphocytes # (Auto) 1.1 x10^3/uL (1.0-4.8) Monocytes # (Auto) 0.7 x10^3/uL (0.0-1.1) Eosinophils # (Auto) 0.3 x10^3/uL (0.0-0.7) Basophils # (Auto) 0.0 x10^3/uL (0.0-0.2) Prothrombin Time 12.4 SEC (11.7-14.0) Prothrombin Time INR 1.0 (0.8-1.1) Sodium Level 142 mmol/L (136-145) Potassium Level 4.4 mmol/L (3.5-5.1) Chloride Level 107 mmol/L (98-107) Carbon Dioxide Level 25 mmol/L (21-32) Anion Gap 10 (6-14) Blood Urea Nitrogen 17 mg/dL (8-26) Creatinine 1.4 mg/dL (0.7-1.3) H Estimated GFR (Cockcroft-Gault) 58.3 BUN/Creatinine Ratio 12 (6-20) Glucose Level 100 mg/dL (70-99) H Calcium Level 9.0 mg/dL (8.5-10.1) Total Bilirubin 1.1 mg/dL (0.2-1.0) H Aspartate Amino Transferase (AST) 22 U/L (15-37) Alanine Aminotransferase (ALT) 23 U/L (16-63) Alkaline Phosphatase 74 U/L (46-116) Troponin I Quantitative < 0.017 ng/mL (0.000-0.055) Total Protein 7.4 g/dL (6.4-8.2) Albumin 3.9 g/dL (3.4-5.0) Albumin/Globulin Ratio 1.1 (1.0-1.7) Urine Collection Type Unknown Urine Color Yellow Urine Clarity Cloudy Urine pH 7.0 Urine Specific [place] 1.010 Urine Protein Negative mg/dL (NEG-TRACE) Urine Glucose (UA) Negative mg/dL (NEG) Urine Ketones (Stick) Negative mg/dL (NEG) Urine Blood Negative (NEG) Urine Nitrite Negative (NEG) Urine Bilirubin Negative (NEG) Urine Urobilinogen Dipstick 0.2 mg/dL (0.2 mg/dL) Urine Leukocyte Esterase Negative (NEG) Urine RBC Occ /HPF (0-2) Urine WBC 5-10 /HPF (0-4) Urine Bacteria 0 /HPF (0-FEW) Laboratory Tests 11/11/18 10:49 Laboratory Tests 11/11/18 10:49 ECHOCARDIOGRAM ECHOCARDIOGRAM <Conclusion> Limited echo to evaluate LV function. The left ventricle is normal size. The systolic function of the left ventricle is mildly decreased on a global basis. The Ejection Fraction is estmated at 45%. There is normal left ventricular wall thickness. There is a trace to small pericardial effusion with no hemodynamic significance. DATE: 05/09/17 1131 STRESS TEST STRESS TEST Conclusion 1. Abnormal baseline EKG but no EKG evidence of stressed induced ischemia. 2. Nuclear imaging shows no reversible ischemia or infarct. 3. Intact LV systolic function with an ejection fraction of 51%. 4. Low to moderately low risk Lexiscan nuclear stress test. DATE: 12/18/16 1506 ASSESSMENT/PLAN ASSESSMENT/PLAN 1. Atypical CP: trop nml. EKG SR without acute changes. Induced by intractable coughing 2. 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 CAD: 10/2011 PCI/ASHLEY to LAD, clinically stable. 4. HTN: labile 5. HLP 6. Acute bronchitis with COPD 7. 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 Potentially uncontrolled GERD. 9. Posttussive lightheadedness Recommendations 1. Start on PPI. Continue home ASA and losartan. Hydralazine IV PRN 2. Check TTE, lipids. Trend troponin 3. Supportive care. Pulmonary consult pending. 4. will consider for outpt stress test. RADHA RUSSO PRINTED [employer] BOARD PANELS DEVELOPER Nov 11, 2018 16:37
[2018-11-11] MEDS ORDERED: PANTOPRAZOLE 40 MG TABLET.DR. PO ONE (16:45)
[2018-11-11 16:57] LABS: CHOLESTEROL/HDL RATIO 2.6
[2018-11-11] MEDS: LOSARTAN POTASSIUM 50 MG TABLET. PO SCH (17:33)
[2018-11-11] MEDS ORDERED: CALC200T23 PO (17:56)
[2018-11-11] MEDS ORDERED: CALCIUM CARBONATE 500 MG TAB.CHEW PO PRN (18:00)
[2018-11-11] MEDS: BENZONATATE 100 MG CAPSULE. PO SCH ×2 (18:05→20:30)
[2018-11-11 19:15] VITALS: BP 160/85
[2018-11-11] MEDS: BUDESONIDE 0.5 MG/2 ML NEBU. NEB SCH (19:28)
[2018-11-11] MEDS: LATANOPROST 0.005% OPHTH SOLUTION 2.5ML BOTTLE. OU SCH (20:31)
[2018-11-11 23:42] VITALS: BP 149/82
[2018-11-12 03:30] VITALS: BP 140/80
[2018-11-12 07:00] VITALS: BP 144/85
[2018-11-12] MEDS ORDERED: PANTOPRAZOLE 40 MG TABLET.DR. PO SCH (07:30)
[2018-11-12] MEDS: BUDESONIDE 0.5 MG/2 ML NEBU. NEB SCH (07:39)
[2018-11-12] MEDS: IPRATROPIUM BROMIDE 0.5 MG/2.5 ML NEBU. NEB SCH ×4 (07:40→19:18)
--- NOTE | 2018-11-12 08:50 | PDOC ---
Provider Note Provider Note [id number] DOUG BROWN MD Nov 12, 2018 08:50
--- NOTE | 2018-11-12 09:02 | HP ---
ADMIT DATE: 11/11/2018 CHIEF COMPLAINT: Cough and chest pain. HISTORY OF PRESENT ILLNESS: The patient is an 83-year-old white male with known COPD and a history of stage IV lung cancer with mets to his liver, had intractable coughing and some chest pain prior to coming in. After the ER evaluation, chest x-ray was clear. Labs were okay. He elected to stay in the hospital and be evaluated. Cardiac team has seen him and an echocardiogram is being done at this time and there have been no other further problems and his vital signs are stable. PAST MEDICAL HISTORY: Well documented in the old records. ALLERGIES: LISTED TO SULFA, DOXYCYCLINE AND PANTOPRAZOLE. SOCIAL HISTORY: . No longer a smoker and nondrinker. FAMILY HISTORY: Unremarkable. REVIEW OF SYSTEMS: No other problems. OBJECTIVE: ENT: All within normal limits. NECK: No masses, nodes or bruits. LUNGS: Clear, decreased breath sounds. No wheezes. CARDIOVASCULAR: Regular rate. No irregular beat or murmur. ABDOMEN: Soft, benign and nontender. EXTREMITIES: Unremarkable. Good pedal and radial pulses. NEUROLOGIC: Physiologic and nonfocal. ASSESSMENT: Recurrent cough in a patient with chronic obstructive pulmonary disease. No evidence of active pneumonia or cardiovascular disease at this time. His stage 4 lung cancer appears to be stable and is followed by Oncology. PLAN: Continue current meds. Echo ordered. We will likely be able to discharge later today if okay with patient and with Pulmonary. DOUG BROWN MD DR: ROBLES/romana JOB#: [id number] / [id number]
--- NOTE | 2018-11-12 09:22 | CARD ---
MR#: [id number] Date of Study: 11/12/2018 Ordering Physician: RADHA RUSSO, Referring Physician: RADHA RUSSO, Tech: Lor Cabrera VIKTOR APPROVED REPORT EXAM: Two-dimensional and M-mode echocardiogram with Doppler and color Doppler. Other Information Quality : GoodHR: 75bpm Rhythm : NSR INDICATION Chest Pain 2D DIMENSIONS RVDd3.2 (2.9-3.5cm)Left Atrium(2D)2.9 (1.6-4.0cm) IVSd1.2 (0.7-1.1cm)Aortic Root(2D)3.3 (2.0-3.7cm) LVDd5.0 (3.9-5.9cm)LVOT Diameter2.2 (1.8-2.4cm) PWd1.0 (0.7-1.1cm)LVDs4.0 (2.5-4.0cm) FS (%) 19.2 %SV46.7 ml M-Mode DIMENSIONS Left Atrium(MM)3.43 (2.5-4.0cm)Aortic Root3.39 (2.2-3.7cm) Aortic Valve AoV Peak Michael.120.5cm/sAoV VTI25.1cm AO Peak GR.5.8mmHgLVOT Peak Michael.96.4cm/s AO Mean GR.3mmHgAVA (VMAX)3.00cm2 COSME (VTI)3.40ob0GN P 1/2 [id number] Mitral Valve MV E Eeiycdnk58.5cm/sMV DECEL XHZK242ly MV A Fwxbufyg40.6cm/sE/A Ratio0.6 Pulmonary Valve PV Peak Blttxznc86.7cm/s Tricuspid Valve TR P. Gqsvvasj898zo/sRAP TWPCQTVR7exKd TR Peak Gr.63vhXbOMXO59agIh LEFT VENTRICLE The left ventricle is normal size. There is normal left ventricular wall thickness. The systolic func tion is mildly impaired. The Ejection Fraction is 45-50%. There is mild global hypokinesis of the lef t ventricle. Transmitral Doppler flow pattern is Grade I-abnormal relaxation pattern. RIGHT VENTRICLE The right ventricle is normal size. There is normal right ventricular wall thickness. The right ventr icular systolic function is normal. ATRIA The left atrium size is normal. The right atrium size is normal. The interatrial septum is intact wit h no evidence for an atrial septal defect or patent foramen ovale as noted on 2-D or Doppler imaging. AORTIC VALVE The aortic valve is calcified but opens well. The aortic valve is trileaflet. Doppler and Color Flow revealed mild to moderate aortic regurgitation. There is no significant aortic valvular stenosis. The re is no aortic valvular vegetation. MITRAL VALVE The mitral valve is normal in structure and function. There is no evidence of mitral valve prolapse. There is no mitral valve stenosis. Doppler and Color-flow revealed trace mitral regurgitation. TRICUSPID VALVE The tricuspid valve is normal in structure and function. Doppler and Color Flow revealed trace tricus pid regurgitation. The PA pressure was estimated at 31 mmHg. There is no tricuspid valve prolapse or vegetation. There is no tricuspid valve stenosis. PULMONIC VALVE The pulmonic valve is not well visualized. Doppler and Color Flow revealed mild pulmonic valvular reg urgitation. There is no pulmonic valvular stenosis. GREAT VESSELS The aortic root is normal in size. The ascending aorta is normal in size. The IVC was not visualized. PERICARDIAL EFFUSION There is no evidence of significant pericardial effusion. Critical Notification Critical Value: No <Conclusion> The left ventricle is normal size. The systolic function is mildly impaired. The Ejection Fraction is 45-50%. There is mild global hypokinesis of the left ventricle. There is no significant aortic valvular stenosis. Doppler and Color Flow revealed mild to moderate aortic regurgitation. Doppler and Color-flow revealed trace mitral regurgitation. Doppler and Color Flow revealed trace tricuspid regurgitation. The PA pressure was estimated at 31 mmHg. Signed by : Hany West MD Electronically Approved : 11/12/2018 09:22:26
[2018-11-12] MEDS: LOSARTAN POTASSIUM 50 MG TABLET. PO SCH (09:29)
[2018-11-12] MEDS: BENZONATATE 100 MG CAPSULE. PO SCH ×3 (09:30→20:57)
[2018-11-12] MEDS: ASPIRIN CHEWABLE 81 MG TABLET. PO SCH (09:30)
[2018-11-12 10:54] VITALS: BP 163/77
--- NOTE | 2018-11-12 11:26 | NUR ---
SS following for discharge planning. SS reviewed pt chart. Pt is from home with spouse and is currently on room air. PT/OT ordered. SS will await PT/OT evaluations and recommendations and will proceed accordingly with discharge planning.
--- NOTE | 2018-11-12 12:22 | CONS ---
DATE OF CONSULTATION: 11/12/2018 ATTENDING PHYSICIAN: Dr. Seferino Louise. REASON FOR CONSULTATION: Cough. HISTORY OF PRESENT ILLNESS: The patient is very well known to me. He has history of COPD, history of stage [id number] stage IV lung cancer and responded well to Keytruda. He was brought into the hospital after he had been having a cough. The patient stated the cough usually happens after an inhaler or nebulizer treatment. As an outpatient, I have tried multiple inhalers and Symbicort gave him blurring of vision, but other inhalers causes him to cough. The patient states that after coughing he has chest pain, but then chest pain resolves. The patient had a workup with CT chest and abdomen recently and the CT chest was reviewed by me in the middle of October and there was no evidence of any relapse of his cancer. His chest x-ray was clear. No headaches, no nausea, vomiting, or diarrhea. PAST MEDICAL HISTORY: Significant for history of COPD, history of stage IV lung cancer with liver mets. Responded well to Keytruda. ALLERGIES: SULFA, DOXYCYCLINE AND PANTOPRAZOLE. SOCIAL HISTORY: No longer smokes cigarettes. . FAMILY HISTORY: Unremarkable. REVIEW OF SYSTEMS: Twelve-point system obtained. Pertinent positives discussed in my history of present illness, otherwise noncontributory. All systems that were negative were reviewed as well. MEDICATIONS: Reviewed as listed in the [facility] including ipratropium nebulizer and we have stopped budesonide and DuoNeb. Along with, he received one dose of prednisone. PHYSICAL EXAMINATION: VITAL SIGNS: Reviewed. Stable. Blood pressure systolic on the high side, pulse ox 96% on room air, afebrile. HEENT: Sclerae nonicteric. NECK: Supple. LUNGS: Clear. CARDIOVASCULAR: Regular rate. ABDOMEN: Soft. EXTREMITIES: With no pitting edema. LABORATORY DATA: Reviewed. White cell count 6.0, hemoglobin 13.7 and platelets are 175. IMPRESSION: 1. Cough after using inhaler and nebulizer. There is no evidence of any infectious etiology for cough. He has tried multiple inhalers as an outpatient and has not tolerated them well. Symbicort gave him blurring of vision. Another inhibitors cause cough. At this time, he is receiving Pulmicort and DuoNebs. 2. History of stage IV lung cancer. It is [id number] with liver mets. He was PD-L1 positives and responded very well to Keytruda and has been off for 2 years. RECOMMENDATIONS: 1. Discussed with RN and the patient and his . I have discontinued his nebulizers and I have placed him only on ipratropium to see if that helps prevent any coughing. 2. At home, I have advised him to use albuterol inhaler with spacer. 3. The patient could be discharged home later today if he tolerates ipratropium as well. 4. Follow up with me in the office. MARGRET WARREN MD DR: AUGUST/romana JOB#: [id number] / [id number]
[2018-11-12 19:15] VITALS: BP 130/75
[2018-11-12] MEDS: LATANOPROST 0.005% OPHTH SOLUTION 2.5ML BOTTLE. OU SCH (20:57)
[2018-11-12 23:40] VITALS: BP 121/63
[2018-11-13 03:39] VITALS: BP 134/83
[2018-11-13 07:00] VITALS: BP 141/70
[2018-11-13] MEDS: IPRATROPIUM BROMIDE 0.5 MG/2.5 ML NEBU. NEB SCH (07:40)
--- NOTE | 2018-11-13 08:37 | PDOC ---
Provider Note Provider Note [id number] DOUG BROWN MD Nov 13, 2018 08:37
[2018-11-13] MEDS: LOSARTAN POTASSIUM 50 MG TABLET. PO SCH (08:38)
[2018-11-13] MEDS: ASPIRIN CHEWABLE 81 MG TABLET. PO SCH (08:38)
--- NOTE | 2018-11-13 08:51 | DS ---
DATE OF DISCHARGE: HOSPITAL SUMMARY: An 83-year-old black male with COPD, hypertension and history of lung cancer with mets to his liver, came in with ongoing cough and some chest discomfort. CBC, chemistry profile and urinalysis were all within normal limits except for creatinine of 1.4 and GFR of 60 consistent with CKD 3. Chest x-ray showed COPD and no other acute changes. Echocardiogram showed minimally reduced ejection fraction of 45%. It was felt that the albuterol he was using at home was causing some irritation and Dr. Garcia switched him to Atrovent per nebulizer and he feels like he is doing better in addition to the addition of Tessalon Perles. He is comfortable to be followed as an outpatient at this point. FINAL DIAGNOSES: 1. Cough secondary to chronic obstructive pulmonary disease. 2. Albuterol intolerance. 3. Stage 4 lung cancer. OPERATIONS, PROCEDURES, COMPLICATIONS: None. CONSULTATIONS: Dr. Garcia and Dr. Carreon. DISPOSITION: Home meds remain the same, but he was switched from Symbicort and albuterol inhalers to atropine per nebulizer and inhaler for Dr. Garcia. I will provide Tessalon 200 mg t.i.d. p.r.n. for trial use as well. Regular followup with all providers. PROGNOSIS: Guarded. DOUG BROWN MD DR: ROBLES/nts JOB#: [id number] / [id number]
[2018-11-13] MEDS ORDERED: ATROVENT HFA12.9 GM IH (10:32)
[2018-11-13] MEDS ORDERED: IPRA0.2S5 IH (10:32)
[2018-11-13] MEDS ORDERED: BENZ100C PO (10:33)
--- NOTE | 2018-11-13 11:06 | PDOC ---
PULMONARY PROGRESS NOTES Subjective tolerated atrovent better Vitals Vital Signs Date Time Temp Pulse Resp B/P (MAP) Pulse Ox O2 Delivery O2 Flow Rate FiO2 11/13/18 08:39 65 11/13/18 07:40 100 Nasal Cannula 2.0 11/13/18 07:00 97.5 18 141/70 (93) 97.5 General: Alert, No acute distress Lungs: Clear Cardiovascular: S1 Abdomen: Soft Neuro Exam: Alert Extremities: No Edema Skin: Warm Labs Laboratory Tests Test 11/11/18 11:30 11/11/18 16:30 Urine Collection Type Unknown Urine Color Yellow Urine Clarity Cloudy Urine pH 7.0 Urine Specific [place] 1.010 Urine Protein Negative mg/dL (NEG-TRACE) Urine Glucose (UA) Negative mg/dL (NEG) Urine Ketones (Stick) Negative mg/dL (NEG) Urine Blood Negative (NEG) Urine Nitrite Negative (NEG) Urine Bilirubin Negative (NEG) Urine Urobilinogen Dipstick 0.2 mg/dL (0.2 mg/dL) Urine Leukocyte Esterase Negative (NEG) Urine RBC Occ /HPF (0-2) Urine WBC 5-10 /HPF (0-4) Urine Bacteria 0 /HPF (0-FEW) Troponin I Quantitative < 0.017 ng/mL (0.000-0.055) Medications Active Scripts Medications Dose Route/Sig Max Daily Dose Days Date Category Tessalon Perle (Benzonatate) 100 Mg Capsule 100 Mg PO TID PRN 11/13/18 Reported Ipratropium [place] 0.2 Mg/1 Ml Solution 0.2 Mg IH QID 11/13/18 Reported Atrovent Hfa (Ipratropium [place]) 12.9 Gm Hfa.aer.ad 2 Puff IH QID 11/13/18 Reported Calcium Carbonate 200 Mg Tab.chew 200 Mg PO TID PRN PRN 11/11/18 Reported Sylvia (Sylvia Root) 250 Mg Capsule 250 Mg PO DAILY 05/08/17 Reported Garlic 100 Mg Tablet 100 Mg PO DAILY 05/08/17 Reported Cod Liver Oil 1 Each Capsule 1 Each PO DAILY 12/16/16 Reported Benefiber (Wheat Dextrin) 1 Each Powd.pack 1 Each PO DAILY 12/16/16 Reported Tylenol (Acetaminophen) 325 Mg Tablet 650 Mg PO Q4HRS PRN 02/23/14 Reported Aspirin 81 Mg Tab.chew 81 Mg PO DAILY 02/23/14 Reported Latanoprost 2.5 Ml Drops 1 Drop EACHEYE HS 02/23/14 Reported Losartan Potassium 50 Mg Tablet 50 Mg PO DAILY 02/23/14 Reported Impression . 1. Cough after using inhaler and nebulizer. There is no evidence of any infectious etiology for cough. He has tried multiple inhalers as an outpatient and has not tolerated them well. Symbicort gave him blurring of vision. Another inhibitors cause cough. At this time, he is receiving Pulmicort and DuoNebs. 2. History of stage IV lung cancer. It is [id number] with liver mets. He was PD-L1 positives and responded very well to Keytruda and has been off for 2 years. Plan . 1. Discussed with RN and the patient and his . I have discontinued his nebulizers and I have placed him only on ipratropium . He has tolerated well 2. At home, I have advised him to use atrovent inhaler with spacer. 3. The patient could be discharged home today 4. Follow up with me in the office. MARGRET WARREN MD Nov 13, 2018 11:06
--- NOTE | 2018-11-13 11:53 | NUR ---
Discharge: Teaching verbal and written. Reviewed medications, follow-up, SOA, cough, ECHO, COPD, ect. Patient verbalized understanding. Dr. Louise called in a prescription for Tessalon rentaa. Dr. Garcia wrote a prescriptions for breathing treatment. All belongings with patient. Patient is waiting on his ride.
--- NOTE | 2018-11-13 12:30 | NUR ---
Patient assisted off of unit via wheelchair accompanied by nurse.
== END 2018-11-13 12:20 | disposition home or self-care (01) | DRG 202 ==
LOC: ER 10:32 → 2 SOUTH 12:12
PROVIDERS: ADMIT Family Medicine; ATTEND Family Medicine
DX: J20.9 Acute bronchitis, unspecified (principal); C34.90 Malignant neoplasm of unspecified part of unspecified bronchus or lung; C78.7 Secondary malignant neoplasm of liver and intrahepatic bile duct; I42.9 Cardiomyopathy, unspecified; J44.0 Chronic obstructive pulmonary disease with (acute) lower respiratory infection; R07.89 Other chest pain; C67.9 Malignant neoplasm of bladder, unspecified; E78.00 Pure hypercholesterolemia, unspecified; E78.5 Hyperlipidemia, unspecified; I05.0 Rheumatic mitral stenosis; I10 Essential (primary) hypertension; M19.90 Unspecified osteoarthritis, unspecified site; I25.10 Atherosclerotic heart disease of native coronary artery without angina pectoris; K21.9 Gastro-esophageal reflux disease without esophagitis; Z79.82 Long term (current) use of aspirin; Z82.49 Family history of ischemic heart disease and other diseases of the circulatory system; Z85.05 Personal history of malignant neoplasm of liver; Z85.118 Personal history of other malignant neoplasm of bronchus and lung; Z85.46 Personal history of malignant neoplasm of prostate; Z85.51 Personal history of malignant neoplasm of bladder; Z87.891 Personal history of nicotine dependence; Z95.5 Presence of coronary angioplasty implant and graft; Z88.2 Allergy status to sulfonamides; Z88.8 Allergy status to other drugs, medicaments and biological substances
CPT/HCPCS: 36415; 71046; 80053; 80061; 81001; 84484; 85025; 85610; 87086; 93005; 93306; 94640; 96360; J7030; J7512; J7626; J7644; 97116; 99285-25; G0378

== ENCOUNTER → 2019-02-05 | Outpatient (CLI) | payer MEDICARE, OTHER ==
[~2019-02-05] MED LIST changes: +ATROVENT HFA12.9 GM IH; +BENZ100C PO; +CALC200T23 PO; -COD1CAPS2 PO; +COD1CAPS6 PO; +IOHEXOL 240 MG/ML 50ML VIAL. PO ONE; +IPRA0.2S5 IH
--- NOTE | 2019-02-05 13:10 | RAD ---
CT of the chest, abdomen, and pelvis without contrast 02/05/2019 INDICATION: Lung cancer. COMPARISON STUDY: CT of the chest abdomen and pelvis without contrast October 29, 2018. TECHNIQUE: Multidetector CT imaging of the chest abdomen and pelvis was performed without the administration of IV contrast. Enteric contrast was administered. FINDINGS: Postsurgical stenotic changes involving the inferior cervical spine noted. Heart size is normal. No pericardial effusion is seen. Fluid density in the anterior mediastinum, is unchanged. This may represent a small cyst. No pathologically enlarged mediastinal adenopathy is seen. Coronary calcification is noted. Emphysematous changes are noted throughout the lungs. No pneumothorax, pleural effusion, or acute focal infiltrate is identified. Calcified granuloma noted in the right lower lobe, unchanged. No new pulmonary nodules or masses are appreciated. No acute osseous changes are seen. Small hypodensity inferior right liver is unchanged. Liver and gallbladder are otherwise unremarkable. Mild thickening of the adrenal glands is stable. Adrenal glands are otherwise stable in appearance. Spleen is unremarkable. Kidneys are unremarkable. Pancreas is grossly unremarkable. No bowel obstruction is seen. The appendix is within normal limits. Ectatic distal small bowel is noted, similar to prior study. This is of uncertain etiology but unchanged from multiple comparison studies. No acute osseous abnormalities involving the abdomen or pelvis are seen. IMPRESSION: Stable appearance of the chest, abdomen, and pelvis. No evidence of recurrent or progressive metastatic disease is identified. CT DOSING PQRS STATEMENT: One or more of the following individualized dose reduction techniques were utilized for this examination: 1. Automated exposure control 2. Adjustment of the mA and/or kV according to patient size 3. Use of iterative reconstruction technique Electronically signed by: Dwight Ariza MD (02/05/2019 1:07 PM) [id number]
== END | disposition home or self-care (01) ==
LOC: CT 11:00
PROVIDERS: ATTEND Internal Medicine Hematology & Oncology
DX: C34.92 Malignant neoplasm of unspecified part of left bronchus or lung (principal); J43.9 Emphysema, unspecified; I25.10 Atherosclerotic heart disease of native coronary artery without angina pectoris; J84.10 Pulmonary fibrosis, unspecified
CPT/HCPCS: 71250; 74176

== ENCOUNTER → 2019-06-01 | Outpatient (CLI) | payer MEDICARE, OTHER ==
--- NOTE | 2019-06-01 13:30 | RAD ---
PQRS Compliance Statement: One or more of the following individualized dose reduction techniques were utilized for this examination: 1. Automated exposure control 2. Adjustment of the mA and/or kV according to patient size 3. Use of iterative reconstruction technique CT CHEST ABDOMEN PELVIS WO 06/01/2019 10:00 AM INDICATION: Lung cancer; restaging COMPARISON: CT chest, abdomen and pelvis February 05, 2019 TECHNIQUE: Multiple axial CT images of the chest, abdomen and pelvis were without intravenous contrast. Coronal and sagittal reformats are provided. FINDINGS: There is no new or enlarging solid noncalcified pulmonary nodule. No pleural effusions, pulmonary vascular congestion or pneumothorax. Trace pericardial fluid, stable. Heart size within normal limits. Thoracic aorta is normal in course and caliber. Focal cystic areas noted along the anterior mediastinum abutting the pericardium. Findings stable. Evaluation of the solid abdominal viscera is limited by lack of intravenous contrast. No new or enlarging hepatic lesions. Stable cyst in the posterior inferior pole right hepatic lobe measuring 9 mm. Gallbladder, bilateral adrenal glands, spleen, pancreas and kidneys are normal in appearance. No bowel obstruction or inflammation. Stable mild prominent small bowel loops in the right upper quadrant abdomen. Appendix is normal in appearance. Mild diverticulosis. No pathologically enlarged lymph nodes are identified in abdomen and pelvis. Mild ectasia of infrarenal abdominal aorta measuring up to 2.4 cm. Mild to moderate calcified atheromatous plaque is present. Cystic area along the right adnexa could indicate the urinary bladder could represent a bladder diverticulum postsurgical changes are identified in the left lower quadrant of the pelvis from prior bowel resection. No suspicious osseous abnormality is identified. IMPRESSION: No evidence for recurrent or residual disease. No evidence for metastatic disease involving the abdomen and pelvis. Electronically signed by: Flor Leyva MD (06/01/2019 1:27 PM) [email or web address]
== END ==
LOC: CT 10:59
PROVIDERS: ATTEND Internal Medicine Hematology & Oncology
DX: C34.92 Malignant neoplasm of unspecified part of left bronchus or lung (principal)
CPT/HCPCS: 71250; 74176

== ENCOUNTER → 2019-09-27 | Outpatient (CLI) | payer MEDICARE, OTHER ==
[~2019-09-27] MED LIST changes: +CONTRAST GIVEN. MC PRN
--- NOTE | 2019-09-27 14:11 | RAD ---
CT scan of the chest, abdomen and pelvis without contrast 09/27/2019 CLINICAL HISTORY: Left lung cancer. TECHNIQUE: After the oral administration of contrast only, contiguous, 5 mm axial sections were obtained through the chest, abdomen and pelvis. One or more of the following individualized dose reduction techniques were utilized for this study: 1. Automated exposure control. 2. Adjustment of the mA and/or kV according to patient size. 3. Use of iterative reconstruction technique. FINDINGS: Comparison study is dated 06/01/2019. Mild to moderate atherosclerotic calcification of the thoracic aorta and its branches is seen. The thoracic aorta is mildly tortuous but tapers normally. Scattered coronary artery calcifications are noted. No hilar, mediastinal or axillary lymphadenopathy is noted. Small calcified right hilar and mediastinal lymph nodes are seen. The heart is normal in size. A 5 mm calcified granuloma seen involving the superior aspect of the right lower lobe. An area of scarring seen involving the superior aspect of the left lower lobe. 2.5 cm bulla is noted involving the superior aspect of the left lower lobe. No pulmonary mass or significant pulmonary nodule is noted. No area of consolidation is seen. No pleural effusion or pneumothorax is identified. A 8mm rounded low-attenuation lesion is seen involving the right lobe liver consistent with a hepatic cyst. The Spleen, pancreas, and kidneys are within normal limits. Fullness of both adrenal glands is again seen, unchanged. Atherosclerotic calcification abdominal aorta is noted. The abdominal aorta tapers normally. No retroperitoneal lymphadenopathy is seen. The gallbladder is contracted. The appendix is well-visualized and is within normal limits. Dilated air filled small bowel loops are seen within the mid abdomen. This has increased since the previous study. A anastomosis is seen involving the distal colon with left within the left lower quadrant abdomen. Oral contrast material extends beyond this point into normal caliber distal ileum. These findings could reflect a partial small bowel obstruction. Clinical correlation is recommended. Images through the pelvis demonstrate the urinary bladder distended with urine. A moderate amount stool is seen involving the rectum. What appears to be an elongated diverticulum is seen extending laterally and superiorly from the inferior aspect of the urinary bladder. This measures 10 cm in greatest diameter. It is unchanged. No free fluid is noted. No pelvic or inguinal lymphadenopathy is noted. Very mild S-shaped curvature of the thoracolumbar spine is seen. Degenerative changes are seen involving the thoracic and throughout the lumbar spine. IMPRESSION: 1. No CT evidence of recurrent or metastatic disease involving the chest, abdomen or pelvis. 2. Findings are seen suggestive of a partial small bowel obstruction as discussed above. Clinical correlation is recommended. Electronically signed by: Duncan Gibbs MD (09/27/2019 2:09 PM) [id number]
== END | disposition home or self-care (01) ==
LOC: CT 11:11
PROVIDERS: ATTEND Internal Medicine Hematology & Oncology
DX: C34.92 Malignant neoplasm of unspecified part of left bronchus or lung (principal); I70.0 Atherosclerosis of aorta; Q25.46 Tortuous aortic arch; I25.10 Atherosclerotic heart disease of native coronary artery without angina pectoris; I89.8 Other specified noninfective disorders of lymphatic vessels and lymph nodes; J98.4 Other disorders of lung; J43.8 Other emphysema; K63.89 Other specified diseases of intestine; N32.3 Diverticulum of bladder; M43.8X5 Other specified deforming dorsopathies, thoracolumbar region; M47.895 Other spondylosis, thoracolumbar region
CPT/HCPCS: 71250; 74176; Q9966

== ENCOUNTER → 2020-03-07 | Outpatient (CLI) | payer MEDICARE, OTHER ==
[~2020-03-07] MED LIST changes: -CONTRAST GIVEN. MC PRN
--- NOTE | 2020-03-07 16:55 | RAD ---
PQRS Compliance Statement: One or more of the following individualized dose reduction techniques were utilized for this examinat ion: 1. Automated exposure control 2. Adjustment of the mA and/or kV according to patient size 3. Use of iterative reconstruction technique CT CHEST_ABDOMEN_ AND PELVIS WITHOUT CONTRAST 03/07/2020 12:42 PM INDICATION: Adenocarcinoma the left lung COMPARISON: CT chest, abdomen and pelvis 09/27/2019, 06/01/2019, 02/05/2019. TECHNIQUE: Multiple axial CT images of the chest, abdomen and pelvis were obtained without intravenou s contrast. Coronal and sagittal reformats are provided. FINDINGS: There are no new or enlarging solid noncalcified pulmonary nodules. Mild centrilobular pulmonary emph ysema. No pleural effusions, pulmonary vascular congestion or pneumothorax. Lungs are clear. No patho logically enlarged thoracic lymph nodes. Heart size within normal limits. Trace pericardial effusion. Thoracic aorta is normal in course and caliber. Mild calcified atheromatous plaque is identified inv olving the thoracic aorta and coronary vessels. Evaluation of solid abdominal viscera is limited by l ack of intravenous contrast. 8 mm hypodensity is identified in the inferior right hepatic lobe, stabl e dating back to 02/05/2019 and presumed benign. Spleen, right adrenal gland, pancreas and gallbladde r are normal in appearance. Stable nodular thickening of the left adrenal gland suspected to represen t adenomatous hyperplasia. Abdominal aorta is normal in course and caliber. No pathologically enlarged lymph nodes are identifie d in abdomen and pelvis. There is no free fluid or free intraperitoneal air. The kidneys are relative ly symmetric in appearance. There is no suspicious renal mass within the limitations of a noncontrast examination. There is no hydronephrosis. There are no calculi within the kidneys, ureters or urinary bladder. Oral contrast is demonstrated. Stomach is nondistended. There are mildly prominent small bowel loops identified within the central upper abdomen measuring up to 4.9 cm, stable. Distal bowel loops are no rmal in caliber. Bowel anastomosis identified in the left lower quadrant of the pelvis. No bowel obst ruction or inflammation. Urinary bladder is within normal limits given degree of distention. No suspi cious osseous abnormality is identified. No suspicious pelvic mass. Anterior cervical discectomy and fusion hardware is identified at C6-C7. IMPRESSION: No evidence for local recurrent disease. No evidence for metastatic disease. Prominent small bowel loops in the central upper abdomen appear stable and may reflect postoperative changes. No bowel obstruction. Electronically signed by: Flor Leyva MD (03/07/2020 4:53 PM) [id number]
== END ==
LOC: CT 11:11
PROVIDERS: ATTEND Internal Medicine Hematology & Oncology
DX: C34.92 Malignant neoplasm of unspecified part of left bronchus or lung (principal); J43.2 Centrilobular emphysema; R91.1 Solitary pulmonary nodule; I70.0 Atherosclerosis of aorta; I25.10 Atherosclerotic heart disease of native coronary artery without angina pectoris; M43.22 Fusion of spine, cervical region
CPT/HCPCS: 71250; 74176

== ENCOUNTER → 2020-06-29 | Outpatient (CLI) | payer MEDICARE, OTHER ==
[~2020-06-29] MED LIST changes: +CONTRAST GIVEN. MC PRN
--- NOTE | 2020-06-30 10:08 | RAD ---
CT CHEST_ABDOMEN_ AND PELVIS WITHOUT CONTRAST INDICATION: SURVEILLANCE OF LUNG CA COMPARISON: 03/07/2020 TECHNIQUE: Multiple contiguous axial images were obtained throughout the chest, abdomen, and pelvis without the use of IV contrast. Axial images were reformatted into coronal and sagittal planes. One or more of th e following dose reduction techniques were utilized: Automated exposure control (AEC), Adjustment of mA and/or kV according to patient size, Use of iterative reconstruction technique such as ASiR, CT sc an done according to ALARA and image gently/image wisely. FINDINGS: Chest Findings: The thyroid is symmetric. There is no axillary, mediastinal, or hilar adenopathy, although evaluatio n of the tim is limited without IV contrast. The thoracic aorta diameter is normal. The cardiac size is normal. Coronary artery atherosclerotic di sease. There is no pericardial effusion. The central airways are patent. No pulmonary mass or consolidation. Left lower lobe linear subsegment al atelectasis. Calcified pulmonary granulomas.. Centrilobular emphysema. No pleural abnormality. Abdomen findings: Evaluation of solid abdominal viscera is limited without the use of IV contrast. However, the gallbl adder, spleen, and pancreas are unremarkable. Stable right inferior hepatic hypodensity, probably a c yst. Stable adrenal thickening. No tracheal hydronephrosis or opaque urinary calculi. There is no si gnificant mesenteric or retroperitoneal adenopathy identified, though evaluation is limited without i ntravenous contrast. There is no evidence of free intraperitoneal fluid or pneumoperitoneum. Lower abdominal bowel anastomosis with conspicuous loops of bowel, similar to prior exams. Pelvis findings: Bladder diverticulum is again visualized. There is no significant pelvic ascites. No significant il iac or inguinal adenopathy is identified. No acute osseous abnormality. Degenerative changes of the spine. IMPRESSION: No evidence of recurrent or metastatic disease Electronically signed by: Amilcar Ho MD (06/30/2020 10:06 AM) [id number]
== END ==
LOC: CT 13:15
PROVIDERS: ATTEND Internal Medicine Hematology & Oncology
DX: C34.92 Malignant neoplasm of unspecified part of left bronchus or lung (principal)
CPT/HCPCS: 71250; 74176

== ENCOUNTER → 2020-12-21 | Outpatient (CLI) | payer MEDICARE, OTHER ==
[~2020-12-21] MED LIST changes: +IOHEXOL 240 MG/ML 50ML VIAL. IV ONE; -IOHEXOL 240 MG/ML 50ML VIAL. PO ONE
--- NOTE | 2020-12-21 18:13 | RAD ---
CT scan of the chest, abdomen and pelvis without contrast 12/21/2020 CLINICAL HISTORY: Lung cancer. TECHNIQUE: After the oral administration contrast only, contiguous, 5 mm axial sections were obtained through the chest, abdomen and pelvis. One or more of the following individualized dose reduction techniques were utilized for this study: 1. Automated exposure control. 2. Adjustment of the mA and/or kV according to patient size. 3. Use of iterative reconstruction technique. FINDINGS: Comparison study is dated 06/29/2020. Atherosclerotic calcification of the thoracic aorta and its branches is noted. The thoracic aorta is mildly tortuous but tapers normally. Scattered coronary artery calcifications are seen. The heart is normal in size. No hilar, mediastinal or axillary lymphadenopathy is noted. An area of scarring is seen involving the superior aspect of the left lower lobe, unchanged. No pulmo nary mass, area of consolidation, pneumothorax or pleural effusion is seen. The liver, spleen, pancreas, and kidneys are within normal limits. Fullness of both adrenal glands is seen, unchanged. Atherosclerotic calcification abdominal aorta is seen. The abdominal aorta tapers normally. The gallb ladder is contracted. No free fluid or free air is seen within the abdomen. There is no evidence of b owel obstruction. No retroperitoneal lymphadenopathy is seen. Images through the pelvis demonstrated the urinary bladder distended with urine. A 5 cm diverticulum is seen involving the right lateral aspect of the urinary bladder. An anastomosis is seen involving t he small intestine within the pelvis. Surgical clips are seen within the pelvis. The patient appears to be post prostatectomy. No free fluid is seen. No pelvic or inguinal lymphadenopathy is noted. The osseous structures are unchanged. IMPRESSION: No acute abnormality is seen. There is no CT evidence of recurrent or metastatic disease involving the chest, abdomen or pelvis. Electronically signed by: Duncan Gibbs MD (12/21/2020 6:10 PM) [id number]
== END ==
LOC: CT 10:47
PROVIDERS: ATTEND Internal Medicine Hematology & Oncology
DX: C34.92 Malignant neoplasm of unspecified part of left bronchus or lung (principal)
CPT/HCPCS: 71250; 74176; Q9966

== ENCOUNTER 2021-04-13 09:44 | Emergency (ER) | payer MEDICARE, OTHER ==
[~2021-04-13] VITALS: Ht 180.3 cm; Wt 69.7 kg
[~2021-04-13 09:44] MED LIST changes: -CONTRAST GIVEN. MC PRN; -IOHEXOL 240 MG/ML 50ML VIAL. IV ONE
--- NOTE | 2021-04-13 09:51 | PHYS DOC ---
Past Medical History Past Medical History: CAD, Cancer, COPD, GERD, High Cholesterol, Hypertension Additional Past Medical Histor: cervical pain, bladder CA, Lung CA, Liver CA. Past Surgical History: Cervical Fusion Additional Past Surgical Histo: bladder surgery due to CA. Smoking Status: Former Smoker Alcohol Use: None Drug Use: None Adult General HPI HPI Patient is a 86 year old male who presents for evaluation to the right neck area. He has a palpable mass in that area which has been present for about 1 month. He also complains of some discomfort when he swallows food and water. No difficulty breathing. Has not been evaluated for this previously although he was seen by his primary care doctor recently for sore throat. He was started on omeprazole and referred to follow-up with a GI physician. He has an appointment 7 days from today to see the GI doctor. He has initially checked into the ER as shortness of breath but during my interview, patient states he has this all the time. He has known history of COPD which is not oxygen dependent at home. He states this is at baseline and is not worse compared to normal. Denies chest pain. No orthopnea, lower extremity edema, dyspnea on exertion. Primary complaint today is mass on the right side of neck. Review of Systems Review of Systems Constitutional: Denies fever or chills Eyes: Denies change in visual acuity, redness, or eye pain HENT: Denies nasal congestion or sore throat, as documented in HPI Respiratory: hx of COPD, not oxygen dependent Cardiovascular: No additional information not addressed in HPI GI: Denies abdominal pain, nausea, vomiting : Denies dysuria or hematuria Musculoskeletal: Denies back pain or joint pain Integument: Denies rash or skin lesions Neurologic: Denies headache, focal weakness or sensory changes Endocrine: Denies polyuria or polydipsia All other systems were reviewed and found to be within normal limits, except as documented in this note. Current Medications Current Medications Current Medications Medications (Trade) Dose Ordered Sig/Norma Start Time Stop Time Status Last Admin Dose Admin Info (CONTRAST GIVEN -- Rx MONITORING) 1 each PRN DAILY PRN 04/13/21 11:00 04/15/21 10:59 Iohexol (Omnipaque 300 Mg/ml) 75 ml 1X ONCE 04/13/21 11:00 04/13/21 11:01 DC 04/13/21 11:12 75 ML Allergies Allergies Allergies Coded Allergies Type Severity Reaction Last Updated Verified Sulfa (Sulfonamide Antibiotics) Allergy Intermediate 06/29/14 Yes doxycycline Allergy Intermediate 03/20/16 Yes pantoprazole Allergy Mild Itching 11/12/18 Yes clindamycin Allergy Unknown unknown 04/13/21 Yes Physical Exam Physical Exam Constitutional: Well developed, well nourished, no acute distress, non-toxic appearance. HENT: Normocephalic, atraumatic, bilateral external ears normal, oropharynx moist, no oral exudates, nose normal, palpable, non-tender, round, subcutaneous mass along the right anterior cervical chain in front of SCM muscle Eyes: PERRLA, EOMI, conjunctiva normal, no discharge. Neck: Normal range of motion, no tenderness, supple, no stridor. Cardiovascular:Heart rate regular rhythm Lungs & Thorax: Bilateral breath sounds clear to auscultation Abdomen: Bowel sounds normal, soft, no tenderness Skin: Warm, dry, no erythema, no rash. Back: No tenderness, no CVA tenderness. Extremities: No tenderness, no cyanosis, no clubbing, ROM intact, no edema Neurologic: Alert and oriented X 3 Psychologic: Affect normal Current Patient Data Vital Signs Vital Signs Date Time Temp Pulse Resp B/P (MAP) Pulse Ox O2 Delivery O2 Flow Rate FiO2 04/13/21 11:56 86 19 141/81 (101) 98 Room Air 04/13/21 09:49 97.8 97.8 Lab Values Laboratory Tests Test 04/13/21 10:16 04/13/21 10:28 Influenza Type A Antigen Negative (NEGATIVE) Influenza Type B Antigen Negative (NEGATIVE) SARS-CoV-2 Antigen (Rapid) Negative (NEGATIVE) White Blood Count 7.1 x10^3/uL (4.0-11.0) Red Blood Count 4.50 x10^6/uL (4.30-5.70) Hemoglobin 13.8 g/dL (13.0-17.5) Hematocrit 41.2 % (39.0-53.0) Mean Corpuscular Volume 92 fL (79-100) Mean Corpuscular Hemoglobin 31 pg (25-35) Mean Corpuscular Hemoglobin Concent 33 g/dL (31-37) Red Cell Distribution Width 13.9 % (11.5-14.5) Platelet Count 213 x10^3/uL (140-400) Neutrophils (%) (Auto) 71 % (31-73) Lymphocytes (%) (Auto) 14 % (24-48) L Monocytes (%) (Auto) 12 % (0-9) H Eosinophils (%) (Auto) 2 % (0-3) Basophils (%) (Auto) 0 % (0-3) Neutrophils # (Auto) 5.0 x10^3/uL (1.8-7.7) Lymphocytes # (Auto) 1.0 x10^3/uL (1.0-4.8) Monocytes # (Auto) 0.8 x10^3/uL (0.0-1.1) Eosinophils # (Auto) 0.2 x10^3/uL (0.0-0.7) Basophils # (Auto) 0.0 x10^3/uL (0.0-0.2) Sodium Level 148 mmol/L (136-145) H Potassium Level 4.8 mmol/L (3.5-5.1) Chloride Level 111 mmol/L (98-107) H Carbon Dioxide Level 28 mmol/L (21-32) Anion Gap 9 (6-14) Blood Urea Nitrogen 21 mg/dL (8-26) Creatinine 1.4 mg/dL (0.7-1.3) H Estimated GFR (Cockcroft-Gault) 57.9 Glucose Level 109 mg/dL (70-99) H Calcium Level 9.0 mg/dL (8.5-10.1) Troponin I High Sensitivity 9 ng/L (4-75) ZA-Hqy-P-Type Natriuretic Peptide 234 pg/mL (0-449) Laboratory Tests 04/13/21 10:28 Laboratory Tests 04/13/21 10:28 EKG EKG [] Radiology/Procedures Radiology/Procedures [] Course & Med Decision Making Course & Med Decision Making Pertinent Labs and Imaging studies reviewed. (See chart for details) 09:45: Seen and examined. No acute distress. Lungs are clear with good air movement in all paiz. Standard work-up is ordered. Also will order CT scan of the neck to evaluate his primary complaint. 12:35: All results are reviewed and discussed with the patient. All of his questions were answered. He does have CT scan findings concerning for malignant mass in the neck. These are discussed with him including the importance of close follow-up and referral to specialty care including ENT and oncology. I did also contact the patient's primary doctor, Dr. Louise, who agreed to see the patient in close follow-up and help arrange appropriate referrals. No indication for acute hospitalization today or inpatient work-up and patient is very stable for discharge home today. No airway compromise. Dragon Disclaimer Dragon Disclaimer This electronic medical record was generated, in whole or in part, using a voice recognition dictation system. Departure Departure Impression: Primary Impression: Neck mass Disposition: HOME / SELF CARE / HOMELESS Referrals: DOUG LOUISE MD (PCP) JOSE LOUISE MD Patient Instructions: Retropharyngeal Abscess USRYA JOSE DO Apr 13, 2021 09:51
--- NOTE | 2021-04-13 10:28 | RAD ---
XR CHEST 1V History: Reason: dyspnea / Spl. Instructions: / History: Comparison: November 11, 2018 Findings: No consolidation or pleural effusion. Normal heart size. No pneumothorax. Postop changes cervical spi ne. Impression: 1. No acute cardiopulmonary process. Electronically signed by: Evan Hunter DO (04/13/2021 10:25 AM) [id number]
[2021-04-13 10:42] LABS: CREATININE 1.4 mg/dL (0.7-1.3); GFR 57.9; POTASSIUM 4.8 mmol/L (3.5-5.1)
[2021-04-13 10:43] LABS: BASO % 0 % (0-3); EOS # 0.2 x10^3/uL (0.0-0.7); EOS % 2 % (0-3); HEMATOCRIT 41.2 % (39.0-53.0); HEMOGLOBIN 13.8 g/dL (13.0-17.5); LYMPH % 14 % (24-48); MEAN CORPUSCULAR HEMOGLOBIN 31 pg (25-35); MEAN CORPUSCULAR HGB CONC 33 g/dL (31-37); MEAN CORPUSCULAR VOLUME 92 fL (79-100); MONO # 0.8 x10^3/uL (0.0-1.1); MONO % 12 % (0-9); NEUT % 71 % (31-73); PLATELET COUNT 213 x10^3/uL (140-400); RED CELL DISTRIBUTION WIDTH 13.9 % (11.5-14.5); WHITE BLOOD COUNT 7.1 x10^3/uL (4.0-11.0)
[2021-04-13] MEDS ORDERED: IOHEXOL 300 MG/ML 100ML VIAL. IV ONE (11:00)
[2021-04-13] MEDS ORDERED: CONTRAST GIVEN. MC PRN (11:00)
[2021-04-13 11:15] LABS: INFLUENZA A PATIENT NEGATIVE (NEGATIVE); INFLUENZA B PATIENT NEGATIVE (NEGATIVE)
--- NOTE | 2021-04-13 11:58 | RAD ---
CT NECK SOFT TISSUE WITH IV CONTRAST History:Reason: Palpable mass right neck, submandibular space / Spl. Instructions: OMNI 300 INJ. 60 M LS / History: Technique: CT imaging was performed of the neck soft tissues with intravenous contrast. Coronal and s agittal reconstructions were performed. Exposure: One or more of the following individualized dose reduction techniques were utilized for thi s examination: 1. Automated exposure control 2. Adjustment of the mA and/or kV according to patient size 3. Use of iterative reconstruction technique. Comparison: None Findings: Heterogeneous mass centered within the right posterior hypopharynx involving the posterior hypopharyn geal wall, piriform sinus and right aryepiglottic folds there is extension posteriorly into the poste rior hypopharyngeal fat (series 2 image 56 through 51. The mass involves the right periglottic fat. Enlarged necrotic right level 2 lymph nodes measures 1.5 x 1.4 x 2.2 cm and conglomerate node 1.7 x 1 .4 x 3.9 cm. There is mass effect on the right internal jugular vein. No occlusion. Normal appearance of the bilateral submandibular and parotid glands. Unremarkable thyroid gland. Pulmonary emphysema.Right maxillary sinus mucous retention cyst. Mastoid air cells are clear. Imaged orbits and intracranial contents are unremarkable. Moderate multilevel cervical spondylosis most prom inent C3-C4 and C4-C5. Postoperative changes anterior stabilization C6-C7. Intervertebral fusion C5-C 6 and C6-C7. Multilevel canal and neuroforaminal narrowing. Impression: 1. 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 Recommend fu rther clinical evaluation. 2. Right cervical level 2 necrotic lymph nodes concerning for metastatic lymphadenopathy. Recommend biopsy. 3. Pulmonary emphysema. 4. Moderate cervical spondylosis with multilevel canal and neuroforaminal narrowing. Electronically signed by: Evan Hunter DO (04/13/2021 11:56 AM) [id number]
[2021-04-13 12:26] VITALS: BP 141/79
--- NOTE | 2021-04-14 13:57 | NUR ---
Informed pt of negative covid test. Pt verbalized understanding.
--- NOTE | 2021-04-16 19:06 | EKG ---
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
== END 2021-04-13 13:17 | disposition home or self-care (01) ==
LOC: ER 09:44
DX: R22.1 Localized swelling, mass and lump, neck (principal); Z20.822 Contact with and (suspected) exposure to COVID-19; R06.02 Shortness of breath; J02.9 Acute pharyngitis, unspecified; J44.9 Chronic obstructive pulmonary disease, unspecified; K21.9 Gastro-esophageal reflux disease without esophagitis; E78.00 Pure hypercholesterolemia, unspecified; I10 Essential (primary) hypertension; I25.10 Atherosclerotic heart disease of native coronary artery without angina pectoris; Z87.891 Personal history of nicotine dependence; Z88.1 Allergy status to other antibiotic agents; Z88.2 Allergy status to sulfonamides; Z88.8 Allergy status to other drugs, medicaments and biological substances
CPT/HCPCS: 36415; 70491; 71045; 80048; 83880; 84484; 85025; 87428; 93005; 99285; Q9967; U0003; U0005